=== PATIENT | male | born 1970 | race Caucasian/White ===

== ENCOUNTER 2016-11-13 10:09 | Emergency (ER) | payer OTHER ==
[2016-11-13 10:15] VITALS: RESP 18
[2016-11-13] MEDS ORDERED: SODIUM CHLORIDE 0.9% 1,000 ML IV STA (10:50)
[2016-11-13] MEDS ORDERED: HYDROmorphone 1 MG/ML 1 ML SYRINGE IVP STA (10:51)
--- NOTE | 2016-11-13 11:07 | ED ---
General Adult HPI - General Chief complaint: Chest Pain Stated complaint: left side pain Time Seen by Provider: 11/13/16 10:43 Source: patient, RN notes reviewed, old records reviewed Mode of arrival: ambulatory Limitations: no limitations - History of Present Illness Initial comments: This is a 46-year-old male presents emergency Department chief complaint of 4 days of left sided rib pain. Patient reports that it seems to be underneath his ribs and is worse with deep inspiration. Denies a specific coughing. Patient states that he has had multiple orthopedic surgeries, denies any specific abdominal surgeries. Patient states that he has had worsening pain over the past day and morning and now feels very nauseated. Denies any abnormal bowel movements or blood in his stools. Patient states he's had normal urination. Denies any history of kidney stones. Patient reports that the pain radiates from his left flank area towards his left upper abdomen. Patient reports he takes multiple pain medications due to chronic back pain, has history of hypertension. - Related Data Home Medications Medication Instructions Recorded Confirmed Cyclobenzaprine [Flexeril] 10 mg PO TID PRN 01/25/16 11/13/16 Hydrochlorothiazide [Hydrodiuril] 25 mg PO DAILY 01/25/16 11/13/16 Morphine Sulfate [Ms Contin] 30 mg PO Q8HR 01/25/16 11/13/16 Quinapril HCl [Accupril] 40 mg PO DAILY 01/25/16 11/13/16 oxyCODONE HCL [OxyCONTIN] 10 mg PO Q8H PRN 01/25/16 11/13/16 Multivitamins, Thera [Multivitamin 1 tab PO DAILY 11/13/16 11/13/16 (formulary)] Polyethylene Glycol 3350 [Miralax] 17 gm PO DAILY PRN 11/13/16 11/13/16 Previous Rx's Medication Instructions Recorded Diazepam [Valium] 5 mg PO BID #8 tab 11/13/16 Ibuprofen [Motrin] 800 mg PO TID #12 tab 11/13/16 Allergies Allergy/AdvReac Type Severity Reaction Status Date / Time meperidine [From Demerol] Allergy Rash/Hives Verified 11/13/16 10:40 sulfamethoxazole Allergy Swelling Verified 11/13/16 10:40 [From Bactrim] trimethoprim [From Bactrim] Allergy Swelling Verified 11/13/16 10:40 atenolol AdvReac severe Verified 11/13/16 10:40 headaches metoprolol AdvReac Lethargic,stomach Verified 11/13/16 10:40 pain topiramate AdvReac severe Verified 11/13/16 10:40 headaches,stomach pain Review of Systems ROS Statement: Those systems with pertinent positive or pertinent negative responses have been documented in the HPI. ROS Other: All systems not noted in ROS Statement are negative. Past Medical History Past Medical History: Hypertension, Osteoarthritis (OA) History of Any Multi-Drug Resistant Organisms: None Reported Past Surgical History: Back Surgery, Joint Replacement, Orthopedic Surgery Additional Past Surgical History / Comment(s): Multiple orthopedic surgeries due to work injury. Bilat eye surgery. Past Anesthesia/Blood Transfusion Reactions: Postoperative Nausea & Vomiting ( PONV) Past Psychological History: No Psychological Hx Reported Smoking Status: Former smoker Past Alcohol Use History: Rare Past Drug Use History: None Reported - Past Family History Mother Family Medical History: Cancer Additional Family Medical History / Comment(s): Lung General Exam - General Exam Comments Initial Comments: 46-year-old male. Patient does appear to be in some discomfort. Limitations: no limitations General appearance: alert, in no apparent distress Head exam: Present: atraumatic, normocephalic, normal inspection Eye exam: Present: normal appearance, PERRL, EOMI. Absent: scleral icterus, conjunctival injection, periorbital swelling ENT exam: Present: normal exam, mucous membranes moist Neck exam: Present: normal inspection. Absent: tenderness, meningismus, lymphadenopathy Respiratory exam: Present: normal lung sounds bilaterally. Absent: respiratory distress, wheezes, rales, rhonchi, stridor Cardiovascular Exam: Present: regular rate, normal rhythm GI/Abdominal exam: Present: soft, tenderness (Left upper quadrant tenderness. Left CVA tenderness.), normal bowel sounds. Absent: distended, guarding, rebound, rigid Extremities exam: Present: normal inspection, full ROM, normal capillary refill. Absent: tenderness, pedal edema, joint swelling, calf tenderness Back exam: Present: normal inspection Neurological exam: Present: alert, oriented X3, CN II-XII intact Psychiatric exam: Present: normal affect, normal mood Skin exam: Present: warm, dry, intact, normal color. Absent: rash Course Vital Signs 08/11/13/16 11/13/16 10:10 11:18 13:02 Temperature 96.7 F L Pulse Rate 99 70 84 Respiratory 18 18 18 Rate Blood Pressure 158/84 152/86 140/84 O2 Sat by Pulse 99 96 98 Oximetry 11/13/16 13:50 Temperature 98.4 F Pulse Rate 81 Respiratory 18 Rate Blood Pressure 130/78 O2 Sat by Pulse 98 Oximetry Medical Decision Making - Lab Data Result diagrams: 11/13/16 11:05 11/13/16 11:05 Lab Results 11/13/16 11/13/16 11/13/16 Range/Units 11:05 11:05 11:05 WBC 8.7 (3.8-10.6) k/uL RBC 5.16 (4.30-5.90) m/uL Hgb 17.0 (13.0-17.5) gm/dL Hct 47.6 (39.0-53.0) % MCV 92.3 (80.0-100.0) fL MCH 32.9 (25.0-35.0) pg MCHC 35.7 (31.0-37.0) g/dL RDW 13.4 (11.5-15.5) % Plt Count 216 (150-450) k/uL Neutrophils % 61 % Lymphocytes % 32 % Monocytes % 4 % Eosinophils % 1 % Basophils % 1 % Neutrophils # 5.3 (1.3-7.7) k/uL Lymphocytes # 2.8 (1.0-4.8) k/uL Monocytes # 0.3 (0-1.0) k/uL Eosinophils # 0.1 (0-0.7) k/uL Basophils # 0.1 (0-0.2) k/uL PT (9.0-12.0) sec INR (<1.2) APTT (22.0-30.0) sec Sodium 138 (137-145) mmol/L Potassium 4.4 (3.5-5.1) mmol/L Chloride 103 (98-107) mmol/L Carbon Dioxide 26 (22-30) mmol/L Anion Gap 9 mmol/L BUN 26 H (9-20) mg/dL Creatinine 1.00 (0.66-1.25) mg/dL Est GFR (MDRD) Af Amer >60 (>60 ml/min/1.73 sqM) Est GFR (MDRD) Non-Af >60 (>60 ml/min/1.73 sqM) Glucose 126 H (74-99) mg/dL Calcium 9.5 (8.4-10.2) mg/dL Magnesium 2.0 (1.6-2.3) mg/dL Total Bilirubin 1.0 (0.2-1.3) mg/dL AST 35 (17-59) U/L ALT 59 (21-72) U/L Alkaline Phosphatase 88 (38-126) U/L Total Creatine Kinase 223 H (55-170) U/L CK-MB (CK-2) 1.8 (0.0-2.4) ng/mL CK-MB (CK-2) Rel Index 0.8 Troponin I <0.012 (0.000-0.034) ng/mL Total Protein 7.0 (6.3-8.2) g/dL Albumin 4.4 (3.5-5.0) g/dL Amylase 43 (30-110) U/L Lipase 66 (23-300) U/L Urine Color Urine Appearance (Clear) Urine pH (5.0-8.0) Ur Specific Alvin (1.001-1.035) Urine Protein (Negative) Urine Glucose (UA) (Negative) Urine Ketones (Negative) Urine Blood (Negative) Urine Nitrite (Negative) Urine Bilirubin (Negative) Urine Urobilinogen (<2.0) mg/dL Ur Leukocyte Esterase (Negative) Amorphous Sediment (None) /hpf Urine Mucus (None) /hpf 11/13/16 11/13/16 Range/Units 11:05 11:20 WBC (3.8-10.6) k/uL RBC (4.30-5.90) m/uL Hgb (13.0-17.5) gm/dL Hct (39.0-53.0) % MCV (80.0-100.0) fL MCH (25.0-35.0) pg MCHC (31.0-37.0) g/dL RDW (11.5-15.5) % Plt Count (150-450) k/uL Neutrophils % % Lymphocytes % % Monocytes % % Eosinophils % % Basophils % % Neutrophils # (1.3-7.7) k/uL Lymphocytes # (1.0-4.8) k/uL Monocytes # (0-1.0) k/uL Eosinophils # (0-0.7) k/uL Basophils # (0-0.2) k/uL PT 11.4 (9.0-12.0) sec INR 1.1 (<1.2) APTT 25.5 (22.0-30.0) sec Sodium (137-145) mmol/L Potassium (3.5-5.1) mmol/L Chloride (98-107) mmol/L Carbon Dioxide (22-30) mmol/L Anion Gap mmol/L BUN (9-20) mg/dL Creatinine (0.66-1.25) mg/dL Est GFR (MDRD) Af Amer (>60 ml/min/1.73 sqM) Est GFR (MDRD) Non-Af (>60 ml/min/1.73 sqM) Glucose (74-99) mg/dL Calcium (8.4-10.2) mg/dL Magnesium (1.6-2.3) mg/dL Total Bilirubin (0.2-1.3) mg/dL AST (17-59) U/L ALT (21-72) U/L Alkaline Phosphatase (38-126) U/L Total Creatine Kinase (55-170) U/L CK-MB (CK-2) (0.0-2.4) ng/mL CK-MB (CK-2) Rel Index Troponin I (0.000-0.034) ng/mL Total Protein (6.3-8.2) g/dL Albumin (3.5-5.0) g/dL Amylase (30-110) U/L Lipase (23-300) U/L Urine Color Yellow Urine Appearance Cloudy (Clear) Urine pH 8.0 (5.0-8.0) Ur Specific Alvin 1.018 (1.001-1.035) Urine Protein Trace H (Negative) Urine Glucose (UA) Negative (Negative) Urine Ketones Negative (Negative) Urine Blood Negative (Negative) Urine Nitrite Negative (Negative) Urine Bilirubin Negative (Negative) Urine Urobilinogen <2.0 (<2.0) mg/dL Ur Leukocyte Esterase Negative (Negative) Amorphous Sediment Few H (None) /hpf Urine Mucus Rare H (None) /hpf 11/13/16 15:27 EKG show normal sinus rhythm. Ventricular rate previous per minute. [place] interval 166 ms. QRS duration 84 ms. QT QTc 334/404 ms. Reduce performed at 1108. - Radiology Data Radiology results: report reviewed Disposition Clinical Impression: Abdominal left upper quadrant tenderness, Left flank tenderness Disposition: HOME SELF-CARE Condition: Good Additional Instructions: Patient is apply heating pads and ice packs over the area that is tender. Take the medications as prescribed. Return to emergency department if any alarming signs or symptoms occur. Prescriptions: Diazepam [Valium] 5 mg PO BID #8 tab Ibuprofen [Motrin] 800 mg PO TID #12 tab Referrals: Twila Sanders MD [Primary Care Provider] - 1-2 days Time of Disposition: 13:36
[2016-11-13 11:14] LABS: Basophils # (A) 0.1 k/uL (0-0.2); Basophils % (A) 1 %; CH 32.9; CHCM 35.8; Eosinophils # (A) 0.1 k/uL (0-0.7); Eosinophils % (A) 1 %; HCT 47.6 % (39.0-53.0); HDW 2.75; Luc # (Auto) 0.17; Luc % (Auto) 2; Lymphocytes # (A) 2.8 k/uL (1.0-4.8); Lymphocytes % (A) 32 %; MCH 32.9 pg (25.0-35.0); MCHC 35.7 g/dL (31.0-37.0); MCV 92.3 fL (80.0-100.0); Mean Platelet Volume 7.2; Monocytes # (A) 0.3 k/uL (0-1.0); Monocytes % (A) 4 %; Neutrophils # (A) 5.3 k/uL (1.3-7.7); Neutrophils % (A) 61 %; RBC 5.16 m/uL (4.30-5.90); RDW 13.4 % (11.5-15.5); WBC 8.7 k/uL (3.8-10.6); WBC (Perox) 8.63
[2016-11-13 11:22] LABS: INR 1.1 (<1.2); Partial Thromboplastin Time 25.5 sec (22.0-30.0); Prothrombin Time 11.4 sec (9.0-12.0)
[2016-11-13 11:26] LABS: ALT 59 U/L (21-72); AST 35 U/L (17-59); Alkaline Phosphatase 88 U/L (38-126); Amylase 43 U/L (30-110); Anion Gap 9 mmol/L; Blood Urea Nitrogen 26 mg/dL (9-20); Calcium 9.5 mg/dL (8.4-10.2); Carbon Dioxide 26 mmol/L (22-30); Chloride 103 mmol/L (98-107); Glucose 126 mg/dL (74-99); Non-African American GFR(MDRD) >60 (>60 ml/min/1.73 sqM); Potassium 4.4 mmol/L (3.5-5.1); Sodium 138 mmol/L (137-145)
[2016-11-13 11:29] LABS: Amorphous Sediment,Urine Few /hpf; Appearance,Urine Cloudy (Clear); Bilirubin,Urine Negative (Negative); Glucose,Urine (UA) Negative (Negative); Ketones,Urine Negative (Negative); Leukocyte Esterase,Urine Negative (Negative); Mucus,Urine Rare /hpf; Nitrite,Urine Negative (Negative); Particle Count 16273; Protein,Urine Trace (Negative); Specific Gravity,Urine 1.018 (1.001-1.035); UA Billing (MACRO vs. MICRO) MICRO; Urobilinogen,Urine <2.0 mg/dL (<2.0)
--- NOTE | 2016-11-13 11:44 | XR ---
EXAMINATION TYPE: XR chest 2V DATE OF EXAM: 11/13/2016 COMPARISON: NONE HISTORY: Chest pain TECHNIQUE: Frontal and lateral views of the chest are obtained. FINDINGS: There is no focal air space opacity, pleural effusion, or pneumothorax seen. The cardiac silhouette size is within normal limits. The osseous structures are intact. IMPRESSION: No acute cardiopulmonary process.
[2016-11-13 11:52] LABS: Creatine Kinase 223 U/L (55-170)
[2016-11-13 12:05] LABS: Creatine Kinase MB 1.8 ng/mL (0.0-2.4); Troponin I <0.012 ng/mL (0.000-0.034)
[2016-11-13] MEDS ORDERED: RX INFO: IV CONTRAST WAS GIVEN 1 EACH MISC MISCELLANE PRN (12:30)
[2016-11-13] MEDS ORDERED: DIAZEPAM 5 MG/ML 2 ML SYRINGE IVP STA (12:31)
--- NOTE | 2016-11-13 13:22 | CT ---
EXAMINATION TYPE: CT abdomen pelvis w con DATE OF EXAM: 11/13/2016 REFERENCE: NONE HISTORY: left pain HISTORY: left sided abdominal pain REFERENCE: NONE CT DLP: 1838 mGy Automated exposure control for dose reduction was used. TECHNIQUE: Helical acquisition through the abdomen and pelvis was obtained following the oral ingesti on of without Oral Contrast and following intravenous administration of 100 mL of Omnipaque 300. The data was reformatted in axial, coronal and sagittal projections. FINDINGS: There is some dependent atelectasis in the dependent portions of the lungs. There is no pl eural or pericardial fluid. The heart is not enlarged. Within the abdomen, the liver, spleen and gallbladder appear normal. Both adrenal glands appear normal. Both kidneys demonstrate function and appear morphologically normal. The pancreas is unremarkable. There is no significant retroperitoneal, iliac or inguinal adenopathy. The bladder is unremarkable. There is no significant diverticular change and there is no radiographic evidence of diverticulitis. The appendix is not visualized. Small bowel loops appear normal. There is no free fluid and no free air identified. There is been a previous interpedicular fusion at L5-S1 with spacer placement. There has been a janis ectomy at L5. IMPRESSION: 1. NO ACUTE INFLAMMATORY ABNORMALITY TO EXPLAIN PATIENT'S CLINICAL SYNDROME. 2. POSTSURGICAL CHANGE.
[2016-11-13 13:50] VITALS: BP 130/78; PULSE 81; TEMP 98.4
== END 2016-11-13 13:50 | disposition home or self-care (01) ==
LOC: EC 10:09
DX: R10.812 Left upper quadrant abdominal tenderness (principal); R07.81 Pleurodynia; I10 Essential (primary) hypertension; Z87.891 Personal history of nicotine dependence; Z88.2 Allergy status to sulfonamides; Z88.8 Allergy status to other drugs, medicaments and biological substances; Z88.5 Allergy status to narcotic agent; Z79.891 Long term (current) use of opiate analgesic; Z79.899 Other long term (current) drug therapy
CPT/HCPCS: 99285; 96374; 96375; 96361 ×3; 36415; 93005; 80053; 82150; 82550; 82553; 83690; 83735; 84484; 85025; 85610; 85730; 81001; 71020; 74177; J3360; J1170; Q9967

== ENCOUNTER → 2017-11-26 | Outpatient (CLI) | payer OTHER ==
--- NOTE | 2017-11-26 11:17 | US ---
EXAMINATION TYPE: US thyroid st tissue head/neck DATE OF EXAM: 11/26/2017 COMPARISON: NONE CLINICAL HISTORY: R22.1 Localized swelling, mass and lump, neck. Patient has several palpable lumps b ilateral neck Multiple probable lymph nodes visualized bilaterally. Largest on the right measuring 2.9 x 0.9 x 2.5 cm. Largest in the left measuring 2.3 x 1.1 x 1.7 cm Prominent lymph nodes are seen bilaterally with eccentric cortical thickening, there appears to be re tention of normal fatty hilum. IMPRESSION: Fairly prominent borderline enlarged bilateral neck lymph nodes correlate to the palpabl e abnormality. Findings could reflect normal variant. Infectious process inflammatory process, and ne oplasm such as lymphoma however is in differential. Consider contrast-enhanced neck CT to further nani luate and characterize based on clinical correlation.
== END ==
LOC: RADUSWWP 09:32
PROVIDERS: ATTEND Family Medicine
DX: R59.0 Localized enlarged lymph nodes (principal)
CPT/HCPCS: 76536

== ENCOUNTER → 2017-12-18 | Outpatient (CLI) | payer OTHER ==
--- NOTE | 2017-12-18 09:03 | CT ---
EXAMINATION TYPE: CT sinus wo con DATE OF EXAM: 12/18/2017 COMPARISON: NONE HISTORY: sinusitis CT DLP: 667 mGycm. Automated Exposure Control for Dose Reduction was Utilized. TECHNIQUE: CT scan of the sinuses is performed without contrast, axial images are obtained, coronal r eformatted images are also reviewed. FINDINGS: There is patency of the ostia medial complexes. No significant mucosal hypertrophy is seen surrounding the nasal turbinates. There is slight rightward nasal septal deviation and a small 2 mm r ightward nasal septal spur. There is polypoid mucosal thickening within the posterior dependent right maxillary sinus with a mucosal retention cyst versus polyp measuring 2.2 x 1.2 cm. Additionally thin peripheral rim of mucosal thickening is seen within the right maxillary sinus. Scant mucosal thicken ing is appreciated within the ethmoid sinuses. Left maxillary sinus, sphenoid sinuses, frontal sinuse s, and visualized mastoid air cells are well aerated. No middle ear cavity fluid. External auditory c anals appear patent. Osseous structures appear intact. Globes are symmetric and orbits are unremarkable. Punctate tonsilli ths are incidentally seen. IMPRESSION: 1. Polypoid lesion within the right maxillary sinus representing either a mucosal retention cyst or p olyp. Scant mucosal thickening within the right maxillary sinus and ethmoid sinuses. Remainder of the paranasal sinuses are well aerated. 2. Minimal nonocclusive rightward nasal septal deviation. 3. Patency of the ostiomeatal complexes.
--- NOTE | 2017-12-18 09:15 | CT ---
EXAMINATION TYPE: CT soft tissue neck w con DATE OF EXAM: 12/18/2017 HISTORY: neck mass COMPARISON: Ultrasound dated 11/26/2017 CT DLP: 643.50 mGycm. Automated Exposure Control for Dose Reduction was Utilized. TECHNIQUE: CT scan of the neck is performed with IV Contrast, patient injected with 100 mL of Isovue 300, axial images are obtained, coronal and sagittal reformatted images are reviewed. FINDINGS: Airway: Torus tubarius and fossa of Rosenmuller are unremarkable. Parapharyngeal tonsils are slightly enlarged and mildly narrow the oropharynx. There is asymmetry of positioning leading to slight asymm etry of the vallecula. Piriform sinuses are well aerated. Airway is overall maintained. Visualized po rtions of the main tracheobronchial tree are also patent. Parotid/submandibular glands: No evidence of mandibular glands are symmetric. Carotid/Vascular Structures: Common and visualized portions of the internal carotid arteries appear p atent. Right vertebral artery is dominant. Osseous Structures: Moderate multilevel degenerative changes of the cervical spine are seen with vacu um disc phenomenon near the left neural foramen and epidural space at C4-C5. No acute fracture or dis location is appreciated. No suspicious osseous lesion. Right maxillary polypoid lesion is discussed i n the CT same date. Other: There are multiple enlarged lymph nodes at multiple lily stations within the neck, supraclavi cular region, retropectoral region, axillary regions, and prominent lymph nodes within the visualized superior mediastinum. The largest of these lymph nodes is seen on series 4 image 58 measuring 1.7 cm in short axis on the left posterior to the sternocleidomastoid. Some the other largest lymph nodes a re measured at 1.2 cm on image 73, 1.5 cm on the right on image 55, and partially visualized within t he left axilla on image 19. Punctate right upper lobe pulmonary nodule is seen on image 20 peripherally. Additional pulmonary nod ule within the left upper lobe measures 4 mm. Left-sided pulmonary nodule within the left upper lobe laterally as seen on image 1 measuring 3 mm. IMPRESSION: 1. Multiple enlarged lymph nodes of the neck and upper chest. Given the diffuse involvement considera tion is for lymphoma. Correlation with CBC with differential is recommended. If cytology is needed re peat ultrasound could be performed of the neck to assess for access of ultrasound guided percutaneous biopsy. No appreciable neck mass. 2. Multiple subcentimeter pulmonary nodules. Therefore full evaluation of the chest with CT thorax is recommended.
== END ==
LOC: RADCTMAIN 07:51
PROVIDERS: ATTEND Otolaryngology
DX: J34.2 Deviated nasal septum (principal); R59.0 Localized enlarged lymph nodes
CPT/HCPCS: 70491; 70486; Q9967

== ENCOUNTER 2017-12-25 12:26 | Day surgery (SDC) | payer OTHER ==
[2017-12-25 12:56] VITALS: RESP 16; TEMP 98.2
[2017-12-25] MEDS ORDERED: ALPRAZolam 0.5 MG TAB PO STA (12:56)
[2017-12-25 13:51] VITALS: BP 142/72; PULSE 73
--- NOTE | 2017-12-25 14:08 | US ---
ULTRASOUND GUIDED CORE BIOPSY BILATERAL NECK LYMPH NODES: CLINICAL HISTORY: Bilateral neck lymph nodes FINDINGS: The procedure was explained to the patient. The risks, complications, benefits and alternatives were discussed and any questions were answered. Informed consent was obtained. Patient was placed supin e on the ultrasound table and prepped and draped in the usual sterile fashion. Utilizing a 18 gauge needle, 2 core biopsy passes were made into the each of the requested lymph nodes. Patient was stable throughout the procedure. Pathology is pending. All elements of maximal barrier technique were utilized. IMPRESSION: 1. Successful ultrasound guided core biopsy bilateral neck lymphadenopathy.
== END 2017-12-25 14:00 | disposition home or self-care (01) ==
LOC: RADPROMAIN 12:26
PROVIDERS: ATTEND Otolaryngology
DX: C91.Z0 Other lymphoid leukemia not having achieved remission (principal)
CPT/HCPCS: 38505; 76942; 88305; 88341; 88342

== ENCOUNTER 2018-01-28 06:14 | Day surgery (SDC) | payer OTHER ==
[2018-01-22 16:08] VITALS: BMI 38.4
[~2018-01-28 06:14] MED LIST: DEXAMETHASONE SOD PHOSPHATE 10 MG/ML 1 ML VIAL IV ONE; DEXAMETHASONE SOD PHOSPHATE 4 MG/ML 1 ML VIAL IV ONE; FAMOTIDINE 20 MG/2 ML VIAL IV ONE; HYDROmorphone 1 MG/ML 1 ML SYRINGE IVP PRN; LACTATED RINGERS 1,000 ML IV SCH; LIDOCAINE 1% 20 ML VIAL (10MG/ML) FOR IV START INTRADERMA PRN; MELOXICAM 7.5 MG TAB PO ONE; MIDAZOLAM 2 MG/2 ML VIAL IV PRN; ONDANSETRON 4 MG/2 ML VIAL IVP ONE; OXYMETAZOLINE 0.05% NASL SPRAY 1 SPRAY BOTTLE NASAL ONE; Pre Op ABX Message 1 EACH MISC MISCELLANE ONE; fentaNYL (PF) 50 MCG/ML 2 ML AMP IV PRN
[2018-01-28] MEDS ORDERED: DEXAMETHASONE SOD PHOS (MDV) 100 MG/10 ML VIAL ONE (07:26)
[2018-01-28] MEDS ORDERED: MIDAZOLAM 2 MG/2 ML VIAL ONE (07:26)
[2018-01-28] MEDS ORDERED: SUCCINYLCHOLINE CHLORIDE 100 MG/5 ML SYR IV ONE (07:26)
[2018-01-28] MEDS ORDERED: HYDROmorphone (PF) 1 MG/ML ONE (07:26)
[2018-01-28] MEDS ORDERED: PROPOFOL 10 MG/ML 20 ML VIAL IV ONE (07:26)
[2018-01-28] MEDS ORDERED: fentaNYL (PF) 50 MCG/ML 2 ML AMP ONE (07:26)
[2018-01-28] MEDS ORDERED: LABETALOL 5 MG/ML VIAL MDV ONE (07:26)
[2018-01-28] MEDS ORDERED: LIDOCAINE 1% INJ 10MG/ML (20 ML MDV) ONE (07:26)
[2018-01-28] MEDS ORDERED: LIDOCAINE 1%-EPI 1:100,000 20 ML VIAL SQ ONE ×2 (08:00)
[2018-01-28] MEDS ORDERED: FLUORESCEIN STRIPS 1 MG STRIP MISCELLANE ONE (08:00)
[2018-01-28] MEDS ORDERED: BUPIVACAIN-EPI 0.5%-1:200,000 30 ML VIAL SQ ONE ×2 (08:00)
[2018-01-28] MEDS ORDERED: BACITRACIN 500 UNIT/GM OINT 28.4 GM TUBE TOPICAL ONE (08:00)
[2018-01-28] MEDS ORDERED: EPINEPHrine 1 MG/ML (MDV) 30 ML VIAL TOPICAL ONE (08:00)
[2018-01-28] MEDS ORDERED: EPINEPHrine 1 MG/ML (MDV) 30 ML VIAL IRRIGATION ONE (08:00)
[2018-01-28 09:16] VITALS: TEMP 97.9
[2018-01-28] MEDS: ENALAPRILAT 1.25 MG/ML 1 ML VIAL IVP ONE ×2 (09:20→09:33)
--- NOTE | 2018-01-28 09:28 | P.OP ---
Date of Procedure: 01/28/18 Preoperative Diagnosis: Deviated nasal septum Hypertrophy of nasal turbinates bilaterally with obstruction Chronic maxillary and ethmoid sinusitis with right maxillary sinus polyp Postoperative Diagnosis: same Procedure(s) Performed: Septoplasty Bilateral submucosal resection of the inferior turbinates with outfracture and compression Bilateral functional endoscopic sinus surgery with right maxillary sinus polypectomy Anesthesia: PAN Surgeon: Ralf Maldonado Estimated Blood Loss (ml): 20 Pathology: other (Sinonasal) Condition: stable Disposition: PACU Indications for Procedure: This patient presented to the office with long-standing problems of chronic sinus congestion anosmia and infectious drainage. This is been a problem for many years and has been treated with multiple antibiotics cortisone nasal sprays and [id number] medications. He did on multiple antibiotics with no long-term improvement and is requesting surgery. He has constant yellow drainage in the sense of smell is poor. His drainage is always yellow and this is in spite of antibiotic therapy. CAT scan evaluation shows chronic sinusitis with a large polyp of the right maxillary sinus. Patient also was found have a deviated nasal septum to the left there was obstructive with intranasal crusting and scabbing. Operative Findings: Patient had a large polyp-type mass of the right maxillary sinus with evidence of diseased sinuses and the maxillary and total ethmoid sinuses. Septum is severely deviated to the left and the inferior turbinates were large and obstructive bilaterally. Description of Procedure: This patient was taken to the operative room and placed in the supine position. A general inhalation anesthetic was administered to the patient by the department of anesthesia with a functioning IV line in place. The patient was monitored throughout the entire case by the department of anesthesia. The eyes were taped shut for protection. The patient was placed in a slight reverse Trendelenburg position. The patient had previously utilize Afrin nasal spray preoperatively. The nose was evaluated and the septum lateral nasal wall and inferior turbinates were injected with lidocaine 1% with epinephrine 1 100,000 bilaterally. Approximately 10 minutes were allowed wait for full vasoconstrictive effects to take place. At this point a caudal incision was made over the caudal portion of the left septum down to the mucoperichondrium. A mucoperichondrial flap was elevated on the left side and dissection was carried with use of tunnels posteriorly. We then made a crossover incision through the cartilage to the contralateral side and for the mucoperichondrial flap development was performed to the extent of visualization on the contralateral side. After the cartilage was freed with use of several crosshatching incisions and removal of some redundant strips of septal cartilage, the septum was straightened and placed back in the midline. The septum was sutured fixated to the ovarian groove. Excellent straightening occurred and the septum was visibly straight. Incision was closed with a 40 rapid Vicryl. We utilized a running nonlocking fashion for closure of the incision. A quilting stitch was used to reapproximate the septal flaps with use of a 40 rapid Vicryl. We then entered the nose with a 0 and 30 [place] tolu endoscope. Previous to this we did inject the lateral nasal wall and middle turbinate and uncinate process with lidocaine 1% with epinephrine 1 100,000. Approximately 10 minutes were allowed wait for full vasoconstrictive effects to take place. With use of a microdebrider and a pediatric backbiter, we took down the uncinate process bilaterally. We then opened the maxillary sinuses bilaterally. We utilized a microdebrider for this and entered the maxillary sinuses and removed diseased tissue. I removed a large polyp of the right maxillary sinus. Maxillary sinuses were opened bilaterally and we remove diseased tissue bilaterally.. After the maxillary sinuses were opened and the diseased tissue was removed we entered the ethmoid bulla and with use of a microdebrider and up-biting Pretty, we followed the fovea frontalis through the basal lamella and into the posterior ethmoid air cells and did a total ethmoidectomy. We removed the anterior ethmoid air cells with use of a microdebrider and up-biting boss. After all the anterior ethmoid air cells were removed we did the same in the posterior ethmoid. A total ethmoidectomy was completed in that fashion with removal of all the anterior and posterior ethmoid air cells and diseased tissue. Once the ethmoids cells were all taken down we then entered the sphenoid sinus medially and inferiorly underneath the inferior attachment of the superior turbinate. . Ethmoid sinuses were opened totally. Xerogel was inserted and minimal bleeding was encountered. Powdered Surgicel was utilized We reinspected the skull base there is no signs of any orbital penetration or signs of any intracranial penetration. The sugical site was reinspected after the xerogel was placed and no bleeding was seen. Intranasal splints were inserted and fixated at the end of the case. We utilized Edwards nasal splints. There will be removed and the patient returns to the office. A small piece of nasal pore was placed between the inferior turbinate and the septal splint. Attention was then paid to the inferior turbinates. The bilateral inferior turbinates were hypertrophic and obstructive. We entered the anterior portion of the inferior turbinates with use of a microdebrider. We remove bone and submucosal elements with use of a microdebrider bilaterally. The inferior turbinates underwent a submucosal resection with removal of submucosal tissue and bone. We obtained a much better and normal in size for breathing. The inferior turbinates were then outfractured and compressed with a Rewind Me nasal elevator. Excellent airway was obtained and was symmetric bilaterally. No bleeding was encountered.
[2018-01-28] MEDS: MORPHINE SULFATE 10 MG/ML SYRINGE IVP ONE ×4 (09:30→09:40)
[2018-01-28 09:54] VITALS: RESP 18
[2018-01-28] MEDS ORDERED: ACETAMINOPHEN TAB 500 MG TAB PO ONE (10:10)
[2018-01-28] MEDS ORDERED: LABETALOL SYRINGE 5 MG/ML IVP ONE (10:30)
[2018-01-28 11:21] VITALS: BP 143/85; PULSE 85
== END 2018-01-28 11:22 | disposition home or self-care (01) ==
LOC: OR 06:14
PROVIDERS: ATTEND Otolaryngology
DX: J32.8 Other chronic sinusitis (principal); J34.2 Deviated nasal septum; J34.3 Hypertrophy of nasal turbinates; J33.8 Other polyp of sinus; I10 Essential (primary) hypertension; C91.10 Chronic lymphocytic leukemia of B-cell type not having achieved remission; K21.9 Gastro-esophageal reflux disease without esophagitis; H91.90 Unspecified hearing loss, unspecified ear; Z87.891 Personal history of nicotine dependence; J37.0 Chronic laryngitis; K76.9 Liver disease, unspecified; Z79.891 Long term (current) use of opiate analgesic; Z79.899 Other long term (current) drug therapy; Z88.2 Allergy status to sulfonamides; Z88.5 Allergy status to narcotic agent; Z88.8 Allergy status to other drugs, medicaments and biological substances
CPT/HCPCS: 88305; 88300; 30520; 31267; 31255; 30140; J0171; J2250; J1100 ×2; J2270; J2405; J2001; J3010; J1170; J0330; J2704

== ENCOUNTER → 2018-09-18 | Outpatient (CLI) | payer OTHER ==
[2018-09-18 08:40] LABS: HCT 44.2 % (39.0-53.0); HGB 14.6 gm/dL (13.0-17.5); MCH 31.7 pg (25.0-35.0); MCV 95.9 fL (80.0-100.0); Mean Platelet Volume 7.8; Platelet Count 180 k/uL (150-450); RBC 4.61 m/uL (4.30-5.90); RDW 13.8 % (11.5-15.5); WBC 22.2 k/uL (3.8-10.6)
== END | disposition home or self-care (01) ==
LOC: LABWHC1 08:10
PROVIDERS: ATTEND Internal Medicine Endocrinology, Diabetes & Metabolism
DX: E29.1 Testicular hypofunction (principal)
CPT/HCPCS: 36415; 84403; 85027

== ENCOUNTER 2018-10-27 09:23 | Day surgery (SDC) | payer OTHER ==
[2018-10-21 13:27] VITALS: BMI 38.0
[~2018-10-27 09:23] MED LIST changes: -DEXAMETHASONE SOD PHOSPHATE 10 MG/ML 1 ML VIAL IV ONE; -DEXAMETHASONE SOD PHOSPHATE 4 MG/ML 1 ML VIAL IV ONE; -FAMOTIDINE 20 MG/2 ML VIAL IV ONE; -HYDROmorphone 1 MG/ML 1 ML SYRINGE IVP PRN; -LIDOCAINE 1% 20 ML VIAL (10MG/ML) FOR IV START INTRADERMA PRN; -MELOXICAM 7.5 MG TAB PO ONE; -MIDAZOLAM 2 MG/2 ML VIAL IV PRN; -ONDANSETRON 4 MG/2 ML VIAL IVP ONE; -OXYMETAZOLINE 0.05% NASL SPRAY 1 SPRAY BOTTLE NASAL ONE; -Pre Op ABX Message 1 EACH MISC MISCELLANE ONE; -fentaNYL (PF) 50 MCG/ML 2 ML AMP IV PRN
[2018-10-27 10:09] VITALS: TEMP 97.8
[2018-10-27] MEDS ORDERED: LIDOCAINE 1% 20 ML VIAL (10MG/ML) FOR IV START INTRADERMA ONE (10:21)
[2018-10-27] MEDS ORDERED: PROPOFOL 10 MG/ML 20 ML VIAL IV ONE (10:36)
--- NOTE | 2018-10-27 10:57 | P.PCN ---
Date of Procedure: 10/27/18 Procedure(s) Performed: BRIEF HISTORY: Patient is a 48-year-old pleasant white male scheduled for an elective colonoscopy as a part of screening for colorectal neoplasia. PROCEDURE PERFORMED: Colonoscopy. PREOPERATIVE DIAGNOSIS: Screening for colon cancer. IV sedation per Anesthesia. PROCEDURE: After informed consent was obtained, the patient, was brought into the endoscopy unit. IV sedation was administered by Anesthesia under continuous monitoring. Digital rectal examination was normal. Initially the Olympus CF-160 flexible video colonoscope was then inserted in the rectum, gradually advanced into the cecum without any difficulty. Careful examination was performed as the scope was gradually being withdrawn. Ileocecal valve and the appendiceal orifice were visualized and appeared normal. Prep was excellent. Mucosa of the cecum, ascending colon, transverse colon, descending colon, sigmoid colon, and rectum appeared normal. Retroflexion was performed in the rectum and no lesions were seen. The patient tolerated the procedure well. IMPRESSION: Normal-appearing colon from rectum to cecum no evidence of colorectal neoplasia . RECOMMENDATIONS: Findings of this examination were discussed with the patient as well as his family. He was advised to have a repeat screening colonoscopy in 10 years.
[2018-10-27 11:02] VITALS: RESP 16
[2018-10-27 11:16] VITALS: BP 131/89; PULSE 75
== END 2018-10-27 11:34 | disposition home or self-care (01) ==
LOC: ORWHC2ENDO 09:23
PROVIDERS: ATTEND Internal Medicine Gastroenterology
DX: Z12.11 Encounter for screening for malignant neoplasm of colon (principal); I10 Essential (primary) hypertension; M19.90 Unspecified osteoarthritis, unspecified site; Z85.6 Personal history of leukemia; Z79.1 Long term (current) use of non-steroidal anti-inflammatories (NSAID); Z79.891 Long term (current) use of opiate analgesic; Z79.899 Other long term (current) drug therapy; Z88.2 Allergy status to sulfonamides; Z88.8 Allergy status to other drugs, medicaments and biological substances; Z88.5 Allergy status to narcotic agent
CPT/HCPCS: J2704; G0121

== ENCOUNTER → 2019-01-22 | Outpatient (CLI) | payer OTHER ==
[2019-01-22 08:55] LABS: HCT 43.7 % (39.0-53.0); HGB 15.1 gm/dL (13.0-17.5); MCH 32.6 pg (25.0-35.0); MCHC 34.6 g/dL (31.0-37.0); MCV 94.2 fL (80.0-100.0); Mean Platelet Volume 7.1; Platelet Count 163 k/uL (150-450); RBC 4.63 m/uL (4.30-5.90); RDW 13.5 % (11.5-15.5); WBC 15.9 k/uL (3.8-10.6)
== END | disposition home or self-care (01) ==
LOC: LABWHC1 08:39
PROVIDERS: ATTEND Internal Medicine Endocrinology, Diabetes & Metabolism
DX: E29.1 Testicular hypofunction (principal)
CPT/HCPCS: 36415; 84153; 84403; 85027

== ENCOUNTER 2019-01-31 07:05 | Emergency (ER) | payer OTHER ==
[2019-01-31 07:17] VITALS: RESP 18
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
--- NOTE | 2019-01-31 08:02 | CT ---
EXAMINATION TYPE: CT brain wo con DATE OF EXAM: 01/31/2019 COMPARISON: None. HISTORY: 48-year-old male right temporal region head injury, pain IHS-NECK, Shoulder-Ear injury TECHNIQUE: Examination was done in axial plane without intravenous contrast. Coronal and sagittal r econstructions performed. CT DLP: 1099.4 mGycm Automated exposure control for dose reduction was used. FINDINGS: There is no evidence of acute intracranial hemorrhage, acute ischemic changes, mass, mass-effect, or extra-axial fluid collection. There is no effacement of cerebral sulci or basal subarachnoid cister ns. There is no hydrocephalus. There is no midline shift. Smith-white matter distinction is preserv ed. Scattered trace mucosal thickening ethmoid air cells. Orbits and globes are intact. Mastoid air cells well pneumatized. No calvarial fracture. IMPRESSION: No acute intracranial abnormality seen.
[2019-01-31] MEDS ORDERED: KETOROLAC 60 MG/2 ML VIAL IM STA (08:06)
[2019-01-31 08:46] VITALS: BP 127/91; PULSE 96; TEMP 97
== END 2019-01-31 08:42 | disposition home or self-care (01) ==
LOC: EC 07:05
DX: S09.90XA Unspecified injury of head, initial encounter (principal); M54.2 Cervicalgia; I10 Essential (primary) hypertension; M19.90 Unspecified osteoarthritis, unspecified site; Z87.891 Personal history of nicotine dependence; Z88.2 Allergy status to sulfonamides; Z88.5 Allergy status to narcotic agent; Z88.8 Allergy status to other drugs, medicaments and biological substances; Z79.890 Hormone replacement therapy; Z79.891 Long term (current) use of opiate analgesic; Z79.899 Other long term (current) drug therapy; Z85.6 Personal history of leukemia; Z96.652 Presence of left artificial knee joint; Z98.890 Other specified postprocedural states; Y04.0XXA Assault by unarmed brawl or fight, initial encounter; Y93.89 Activity, other specified; Y92.230 Patient room in hospital as the place of occurrence of the external cause; Y99.0 Civilian activity done for income or pay
CPT/HCPCS: 70450; 99283; 96372; J1885

== ENCOUNTER → 2019-05-30 | Outpatient (CLI) | payer MEDICAID | END | disposition home or self-care (01) | DX: E29.1 Testicular hypofunction (principal) | CPT/HCPCS: 36415; 84403; 85027 ==

== ENCOUNTER → 2019-08-18 | Outpatient (CLI) | payer MEDICAID ==
[2019-08-18 14:23] LABS: HCT 44.4 % (39.0-53.0); HGB 14.9 gm/dL (13.0-17.5); MCH 32.7 pg (25.0-35.0); MCHC 33.6 g/dL (31.0-37.0); MCV 97.2 fL (80.0-100.0); Mean Platelet Volume 8.4; Platelet Count 162 k/uL (150-450); RBC 4.57 m/uL (4.30-5.90); RDW 13.4 % (11.5-15.5); WBC 31.2 k/uL (3.8-10.6)
[2019-08-18 15:12] LABS: Lymphocytes # (M) 29.02 k/uL (1.0-4.8); Monocytes # (M) 0.31 k/uL (0-1.0); Neutrophils # (M) 2.18 k/uL (1.3-7.7); Neutrophils % (M) 7 %; Nucleated Red Blood Cells 0 /100 WBC (0-0); Total Cells Counted 200
[2019-08-18 15:13] LABS: Anisocytosis (M) Present; Poikilocytosis (M) Present
[2019-08-19 00:04] LABS: African American GFR (CKD) 100.6 (60.0-200.0); Albumin 4.5 g/dL (3.80-4.90); Albumin/Globulin Ratio 2.65 (1.60-3.17); Anion Gap 6.6 mmol/L (4.00-12.00); Calcium 9.5 mg/dL (8.7-10.3); Carbon Dioxide 27.4 mmol/L (21.6-31.8); Globulin 1.7 g/dL (1.6-3.3); Non-African American GFR(CKD) 86.8 (60.0-200.0); Potassium 4.3 mmol/L (3.5-5.5); Total Bilirubin 0.5 mg/dL (0.2-1.2); Total Protein 6.2 g/dL (6.2-8.2)
== END | disposition home or self-care (01) ==
LOC: LABWHC1 12:46
DX: C91.10 Chronic lymphocytic leukemia of B-cell type not having achieved remission (principal)
CPT/HCPCS: 36415; 80053; 83615; 85025

== ENCOUNTER → 2019-10-04 | Outpatient (CLI) | payer MEDICAID ==
[2019-10-04 08:26] LABS: HCT 43.7 % (39.0-53.0); HGB 15.1 gm/dL (13.0-17.5); MCH 33.7 pg (25.0-35.0); MCHC 34.5 g/dL (31.0-37.0); MCV 97.5 fL (80.0-100.0); Mean Platelet Volume 8.1; Platelet Count 151 k/uL (150-450); RBC 4.48 m/uL (4.30-5.90); RDW 13.8 % (11.5-15.5)
[2019-10-04 11:39] LABS: Prostate Specific Antigen 0.6 ng/mL (0.0-3.5)
== END | disposition home or self-care (01) ==
LOC: LABWHC1 07:24
PROVIDERS: ATTEND Internal Medicine Endocrinology, Diabetes & Metabolism
DX: E29.1 Testicular hypofunction (principal)
CPT/HCPCS: 36415; 84153; 84403; 85027

== ENCOUNTER → 2020-01-25 | Outpatient (CLI) | payer MEDICAID ==
[2020-01-25 08:16] LABS: HCT 42.3 % (39.0-53.0); HGB 14.7 gm/dL (13.0-17.5); MCH 33.5 pg (25.0-35.0); MCHC 34.8 g/dL (31.0-37.0); MCV 96.2 fL (80.0-100.0); Mean Platelet Volume 7.5; Platelet Count 152 k/uL (150-450); RDW 13.4 % (11.5-15.5)
[2020-01-25 08:27] LABS: WBC 57.7 k/uL (3.8-10.6)
== END | disposition home or self-care (01) ==
LOC: LABWHC1 07:14
PROVIDERS: ATTEND Internal Medicine Endocrinology, Diabetes & Metabolism
DX: E29.1 Testicular hypofunction (principal)
CPT/HCPCS: 36415; 84403; 85027

== ENCOUNTER → 2020-02-13 | Outpatient (CLI) | payer MEDICAID ==
[2020-02-13 08:51] LABS: HCT 43.2 % (39.0-53.0); HGB 14.3 gm/dL (13.0-17.5); MCV 96.8 fL (80.0-100.0); Mean Platelet Volume 7.5; Platelet Count 166 k/uL (150-450); RBC 4.46 m/uL (4.30-5.90); RDW 14.3 % (11.5-15.5)
[2020-02-13 10:17] LABS: WBC 54.9 k/uL (3.8-10.6)
[2020-02-13 10:30] LABS: Eosinophils # (M) 0.55 k/uL (0-0.7); Lymphocytes # (M) 48.86 k/uL (1.0-4.8); Monocytes # (M) 0.55 k/uL (0-1.0); Neutrophils # (M) 4.94 k/uL (1.3-7.7); Neutrophils % (M) 9 %; Nucleated Red Blood Cells 0 /100 WBC (0-0); Total Cells Counted 200
[2020-02-13 10:31] LABS: Anisocytosis (M) Present; Poikilocytosis (M) Present
[2020-02-13 15:47] LABS: African American GFR (CKD) 80.1 (60.0-200.0); Albumin 4.6 g/dL (3.80-4.90); Albumin/Globulin Ratio 2.71 (1.60-3.17); Anion Gap 5.7 mmol/L (4.00-12.00); BUN/Creat Ratio 17.5 Ratio (12.00-20.00); Calcium 9.3 mg/dL (8.7-10.3); Carbon Dioxide 28.3 mmol/L (21.6-31.8); Globulin 1.7 g/dL (1.6-3.3); Non-African American GFR(CKD) 69.1 (60.0-200.0); Total Bilirubin 0.6 mg/dL (0.2-1.2); Total Protein 6.3 g/dL (6.2-8.2)
== END | disposition home or self-care (01) ==
LOC: LABWHC1 07:39
PROVIDERS: ATTEND Internal Medicine
DX: C91.10 Chronic lymphocytic leukemia of B-cell type not having achieved remission (principal)
CPT/HCPCS: 36415; 80053; 83615; 85025

== ENCOUNTER 2020-03-01 06:57 | Inpatient (IN) | payer MEDICAID ==
[2020-03-01] MEDS ORDERED: ACETAMINOPHEN TAB 500 MG TAB PO STA (07:06)
[2020-03-01] MEDS ORDERED: DEXAMETHASONE SOD PHOSPHATE 10 MG/ML 1 ML VIAL IV STA (07:07)
--- NOTE | 2020-03-01 07:14 | ED ---
SOB HPI - General Chief Complaint: Shortness of Breath Stated Complaint: SOB, Covid + Time Seen by Provider: 03/01/20 06:58 Source: patient, RN notes reviewed Mode of arrival: wheelchair Limitations: no limitations - History of Present Illness Initial Comments: This a 50-year-old male presents emergency Department chief complaint of increasing shortness of breath. Patient states she started symptoms of covid on February 17. Patient states that he's been taking [id number] vitamins and states he has a pulse ox at home. Press and pulse ox has been around 89 and 90 states that hhe got up today and noticed pulse ox has been dropping into the low 80s. Patient does have underlying CLL. Patient states she's had on-and-off fevers he has not had any recent Tylenol today. - Related Data Home Medications Medication Instructions Recorded Confirmed Morphine Sulfate [Ms Contin] 30 mg PO BID 01/25/16 03/01/20 Quinapril HCl [Accupril] 40 mg PO QAM 01/25/16 03/01/20 hydroCHLOROthiazide [Hydrodiuril] 25 mg PO QAM 01/25/16 03/01/20 oxyCODONE HCL [OxyCONTIN] 10 mg PO BID PRN 01/25/16 03/01/20 Testosterone Cypionate 200 mg IM Q16D 12/18/17 03/01/20 [Depo-Testosterone] Ibuprofen [Motrin] 800 mg PO TID PRN 01/22/18 03/01/20 Ascorbic Acid [Vitamin C] 1,000 mg PO DAILY 10/21/18 03/01/20 Cyclobenzaprine [Flexeril] 10 mg PO TID PRN 01/31/19 03/01/20 Active Hexose Correlated [place] 3,000 mg PO DAILY 03/01/20 03/01/20 Alpha Lipoic Acid 600 mg PO DAILY 03/01/20 03/01/20 Arteminisin 200 mg PO DAILY 03/01/20 03/01/20 Beta Carotene 3,000 mcg PO DAILY 03/01/20 03/01/20 Chaga Mushroom 1,000 mg PO DAILY 03/01/20 03/01/20 Colostrum 650 mg PO DAILY 03/01/20 03/01/20 [place] 500 1,000 mg PO DAILY 03/01/20 03/01/20 Egcg 3,900 mg PO DAILY 03/01/20 03/01/20 Inositol Hexaphoshpate Ip6 4,000 mg PO DAILY 03/01/20 03/01/20 Lutein And Zeaxanthin 1 cap PO DAILY 03/01/20 03/01/20 Lycopene 50 mg PO DAILY 03/01/20 03/01/20 Magnesium Cypionate 400 mg PO DAILY 03/01/20 03/01/20 [place]-3 2,500 mg PO DAILY 03/01/20 03/01/20 Reishi Mushroom 900 mg PO DAILY 03/01/20 03/01/20 Selenium 250 mcg PO DAILY 03/01/20 03/01/20 Triamcinolone 0.1% Cream [Kenalog 1 applic TOPICAL BID PRN 03/01/20 03/01/20 0.1% Cream] Vitamin D W/ Coconut Oil 125 mcg PO DAILY 03/01/20 03/01/20 Vitamin E (Dl,Tocopheryl Acet) 400 unit PO DAILY 03/01/20 03/01/20 [Vitamin E] Allergies Allergy/AdvReac Type Severity Reaction Status Date / Time meperidine [From Demerol] Allergy Rash/Hives Verified 03/01/20 08:10 sulfamethoxazole Allergy Rash/Hives Verified 03/01/20 08:10 [From Bactrim] trimethoprim [From Bactrim] Allergy Rash/Hives Verified 03/01/20 08:10 atenolol AdvReac severe Verified 03/01/20 08:10 headaches metoprolol AdvReac Lethargic,stomach Verified 03/01/20 08:10 pain topiramate AdvReac severe Verified 03/01/20 08:10 headaches,stomach pain Review of Systems ROS Statement: Those systems with pertinent positive or pertinent negative responses have been documented in the HPI. ROS Other: All systems not noted in ROS Statement are negative. Past Medical History Past Medical History: Blood Disorder, Cancer, Hypertension, Osteoarthritis (OA) Additional Past Medical History / Comment(s): CLL (CHronic Lymphocytic Leukemia.) "Have cage around spine from L5-S1." History of Any Multi-Drug Resistant Organisms: None Reported Past Surgical History: Back Surgery, Joint Replacement, Orthopedic Surgery Additional Past Surgical History / Comment(s): Multiple orthopedic surgeries due to work injury. Bilateral eye surgery X2. Left knee replacement. Past Anesthesia/Blood Transfusion Reactions: No Reported Reaction Additional Past Anesthesia/Blood Transfusion Reaction / Comment(s): Sister PONEduardo. Past Psychological History: No Psychological Hx Reported Smoking Status: Former smoker Past Alcohol Use History: Rare Past Drug Use History: None Reported - Past Family History Mother Family Medical History: Cancer Additional Family Medical History / Comment(s): Lung cancer. General Exam Limitations: no limitations General appearance: alert, in no apparent distress Head exam: Present: atraumatic, normocephalic, normal inspection Eye exam: Present: normal appearance, PERRL, EOMI. Absent: scleral icterus, conjunctival injection, periorbital swelling ENT exam: Present: normal exam, normal oropharynx, mucous membranes moist Neck exam: Present: normal inspection, full ROM. Absent: tenderness, meni ngismus, lymphadenopathy Respiratory exam: Present: decreased breath sounds. Absent: normal lung sounds bilaterally, respiratory distress, wheezes, rales, rhonchi, stridor Cardiovascular Exam: Present: normal rhythm, tachycardia, normal heart sounds. Absent: systolic murmur, diastolic murmur, rubs, gallop, clicks GI/Abdominal exam: Present: soft, normal bowel sounds. Absent: distended, tenderness, guarding, rebound, rigid Back exam: Absent: CVA tenderness (R), CVA tenderness (L) Neurological exam: Present: alert, oriented X3 Skin exam: Present: warm, dry, intact, normal color. Absent: rash Course Vital Signs 03/01/20 03/01/20 03/01/20 06:58 07:27 08:00 Temperature 99.1 F 98.7 F Pulse Rate 120 H 116 H Respiratory 24 22 21 Rate Blood Pressure 163/90 146/96 O2 Sat by Pulse 90 L 95 Oximetry Medical Decision Making - Medical Decision Making 50-year-old presented for hypoxia, covid patient's x-ray shows diffuse infiltrates. Patient has elevated CRP, LDH, d-dimer. Patient has significant leukocytosis related to his CLL. Patient was given a dose of IV steroids. Patient case discussed with but does not wish patient be admitted with pulmonary consult. - Lab Data Result diagrams: 03/01/20 07:36 03/01/20 07:27 Lab Results 03/01/20 03/01/20 03/01/20 Range/Units 07:27 07:27 07:27 WBC (3.8-10.6) k/uL RBC (4.30-5.90) m/uL Hgb (13.0-17.5) gm/dL Hct (39.0-53.0) % MCV (80.0-100.0) fL MCH (25.0-35.0) pg MCHC (31.0-37.0) g/dL RDW (11.5-15.5) % Plt Count (150-450) k/uL MPV Neutrophils % (Manual) % Lymphocytes % (Manual) % Monocytes % (Manual) % Neutrophils # (Manual) (1.3-7.7) k/uL Lymphocytes # (Manual) (1.0-4.8) k/uL Monocytes # (Manual) (0-1.0) k/uL Nucleated RBCs (0-0) /100 WBC Manual Slide Review PT 10.5 (9.0-12.0) sec INR 1.0 (<1.2) APTT 24.7 (22.0-30.0) sec D-Dimer 1.32 H (<0.60) mg/L FEU Sodium 137 (137-145) mmol/L Potassium 3.8 (3.5-5.1) mmol/L Chloride 98 (98-107) mmol/L Carbon Dioxide 30 (22-30) mmol/L Anion Gap 9 mmol/L BUN 19 (9-20) mg/dL Creatinine 0.91 (0.66-1.25) mg/dL Est GFR (CKD-EPI)AfAm >90 (>60 ml/min/1.73 sqM) Est GFR (CKD-EPI)NonAf >90 (>60 ml/min/1.73 sqM) Glucose 113 H (74-99) mg/dL Plasma Lactic Acid Leroy 1.7 (0.7-2.0) mmol/L Calcium 8.9 (8.4-10.2) mg/dL Magnesium 2.2 (1.6-2.3) mg/dL Total Bilirubin 1.0 (0.2-1.3) mg/dL AST 61 H (17-59) U/L ALT 46 (4-49) U/L Alkaline Phosphatase 64 (38-126) U/L Lactate Dehydrogenase 1552 H (313-618) U/L C-Reactive Protein 293.3 H (<10.0) mg/L Total Protein 6.6 (6.3-8.2) g/dL Albumin 3.6 (3.5-5.0) g/dL 03/01/20 Range/Units 07:36 WBC 54.5 H* (3.8-10.6) k/uL RBC 4.27 L (4.30-5.90) m/uL Hgb 13.4 (13.0-17.5) gm/dL Hct 40.5 (39.0-53.0) % MCV 95.0 (80.0-100.0) fL MCH 31.3 (25.0-35.0) pg MCHC 33.0 (31.0-37.0) g/dL RDW 13.9 (11.5-15.5) % Plt Count 278 (150-450) k/uL MPV 7.7 Neutrophils % (Manual) 8 % Lymphocytes % (Manual) 91 % Monocytes % (Manual) 1 % Neutrophils # (Manual) 4.36 (1.3-7.7) k/uL Lymphocytes # (Manual) 49.60 H (1.0-4.8) k/uL Monocytes # (Manual) 0.55 (0-1.0) k/uL Nucleated RBCs 0 (0-0) /100 WBC Manual Slide Review Performed PT (9.0-12.0) sec INR (<1.2) APTT (22.0-30.0) sec D-Dimer (<0.60) mg/L FEU Sodium (137-145) mmol/L Potassium (3.5-5.1) mmol/L Chloride (98-107) mmol/L Carbon Dioxide (22-30) mmol/L Anion Gap mmol/L BUN (9-20) mg/dL Creatinine (0.66-1.25) mg/dL Est GFR (CKD-EPI)AfAm (>60 ml/min/1.73 sqM) Est GFR (CKD-EPI)NonAf (>60 ml/min/1.73 sqM) Glucose (74-99) mg/dL Plasma Lactic Acid [place] (0.7-2.0) mmol/L Calcium (8.4-10.2) mg/dL Magnesium (1.6-2.3) mg/dL Total Bilirubin (0.2-1.3) mg/dL AST (17-59) U/L ALT (4-49) U/L Alkaline Phosphatase (38-126) U/L Lactate Dehydrogenase (313-618) U/L C-Reactive Protein (<10.0) mg/L Total Protein (6.3-8.2) g/dL Albumin (3.5-5.0) g/dL Disposition Clinical Impression: Pneumonia due to COVID-19 virus, Hypoxia Disposition: ADMITTED IP TO THIS HOSP Condition: Serious Referrals: Twila Sanders MD [Primary Care Provider] - 1-2 days
[2020-03-01 07:52] LABS: ALT 46 U/L (4-49); AST 61 U/L (17-59); African American GFR (CKD) >90 (>60 ml/min/1.73 sqM); Albumin 3.6 g/dL (3.5-5.0); Alkaline Phosphatase 64 U/L (38-126); Anion Gap 9 mmol/L; Blood Urea Nitrogen 19 mg/dL (9-20); Calcium 8.9 mg/dL (8.4-10.2); Carbon Dioxide 30 mmol/L (22-30); Chloride 98 mmol/L (98-107); Glucose 113 mg/dL (74-99); LDH 1552 U/L (313-618); Magnesium 2.2 mg/dL (1.6-2.3); Non-African American GFR(CKD) >90 (>60 ml/min/1.73 sqM); Potassium 3.8 mmol/L (3.5-5.1); Sodium 137 mmol/L (137-145); Total Protein 6.6 g/dL (6.3-8.2)
[2020-03-01 07:58] LABS: Partial Thromboplastin Time 24.7 sec (22.0-30.0); Prothrombin Time 10.5 sec (9.0-12.0)
[2020-03-01 08:00] LABS: HCT 40.5 % (39.0-53.0); HGB 13.4 gm/dL (13.0-17.5); MCH 31.3 pg (25.0-35.0); Mean Platelet Volume 7.7; Platelet Count 278 k/uL (150-450); RBC 4.27 m/uL (4.30-5.90); RDW 13.9 % (11.5-15.5)
--- NOTE | 2020-03-01 08:00 | XR ---
EXAMINATION TYPE: XR chest 2V DATE OF EXAM: 03/01/2020 COMPARISON: 11/13/2016 INDICATION: Short of breath TECHNIQUE: Frontal and lateral views of the chest are obtained. FINDINGS: The heart size is normal. The pulmonary vasculature is normal. Patchy bilateral lung infiltrates are present.. IMPRESSION: 1. Patchy bilateral lung infiltrates can be compatible with atypical pneumonia.
[2020-03-01 08:02] LABS: D-Dimer 1.32 mg/L FEU (<0.60)
[2020-03-01 08:08] LABS: WBC 54.5 k/uL (3.8-10.6)
[2020-03-01 08:25] LABS: C Reactive Protein 293.3 mg/L (<10.0)
[2020-03-01 08:47] LABS: Monocytes # (M) 0.55 k/uL (0-1.0); Neutrophils # (M) 4.36 k/uL (1.3-7.7); Neutrophils % (M) 8 %; Nucleated Red Blood Cells 0 /100 WBC (0-0); Total Cells Counted 100
[2020-03-01] MEDS ORDERED: ACETAMINOPHEN TAB 500 MG TAB PO PRN (09:00)
[2020-03-01] MEDS ORDERED: HYDROmorphone 1 MG/ML 1 ML SYRINGE IVP STA (09:12)
--- NOTE | 2020-03-01 09:14 | CT ---
CT CHEST FOR PULMONARY EMBOLISM. EXAMINATION TYPE: CT chest angio for PE DATE OF EXAM: 03/01/2020 INDICATION: SOB CT DLP: 538.4 mGycm, Automated exposure control for dose reduction was used. CONTRAST: Patient injected with 71 mL of Isovue 370. COMPARISON: None TECHNIQUE: CT of the chest is performed on a spiral scan at 2 mm thick sections. Study is performed with intravenous contrast timed for evaluation for pulmonary embolism. This will limit additional po rtions of the evaluation. 3-D MIP images reconstructed by the technologist are reviewed on the compu ter in the coronal and sagittal planes. FINDINGS: No persistent filling defects are evident to suggest an acute pulmonary embolism. There is enlarged lymphadenopathy within the bilateral axilla. Multiple superior mediastinal lymph no malia are present. Some larger mediastinal adenopathy is at the aortopulmonic window measuring 1.9 cm. Some right hilar adenopathy is present. Subcarinal adenopathy is markedly enlarged measuring 2.6 cm. Infrahilar adenopathy is present bilaterally. A 1.1 cm retrocrural lymph node is present. There may b e some partially visualized portal adenopathy present. The ascending aorta diameter at the level of the main pulmonary artery is 3.2 cm. The main pulmonary artery diameter at the bifurcation is 3.0 cm. There are patchy opacities within the bilateral lung schulz. These are nonspecific. Atypical pneumoni a should be considered. Findings are greater in the upper lung schulz. A more focal density may be wi thin the lingula estimated at 0.7 cm. Series [address] section through the upper abdomen are unremarkable. IMPRESSIONS: 1. No acute pulmonary embolism. 2. Multiple enlarged lymph nodes within the mediastinum, hilum bilaterally, and bilateral axilla. Mitch e large adenopathy is present within the retrocrural and portal vein regions. Correlate with the pj ent's history. Lymphoma should be considered. 3. Patchy infiltrates present bilaterally within the lung schulz greater in the upper lung schulz. Co nsider atypical pneumonia.
[2020-03-01] MEDS: dexAMETHasone 2 MG TAB PO SCH (09:17)
[2020-03-01] MEDS: ALBUTEROL HFA INHALER INHALATION PRN ×2 (10:25→20:38)
[2020-03-01] MEDS: ENOXAPARIN 40 MG/0.4 ML SYRINGE SQ SCH (12:24)
--- NOTE | 2020-03-01 12:52 | P.HPIM ---
History of Present Illness The patient is a very pleasant 48-year-old male with known history of CLL and or lymph adenopathy came in with complaints of shortness of breath with saturations going down to as low as the 70s and 80s. Patient was diagnosed with the cold wind 19 recently and patient symptoms has been going on since February 17. Patient was afebrile More than 24 hours but before that patient was having high- grade fevers. She was comparing of dry cough without any significant sputum production. The patient presently doesn't have any body aches but was pretty sick when he was diagnosed. Patient is presently on 3 L of oxygen. Patient was started on Decadron and subsequently admitted. Patient's d-dimer is 1.32 and other inflammatory markers are elevated as well and patient might blood cell count is 54,000 from a chronic lymphocytic leukemia. Review of Systems REVIEW OF SYSTEMS: CONSTITUTIONAL: As mentioned in HPI HEENT: No recent visual problems or hearing problems. Denied any sore throat. CARDIOVASCULAR: No chest pain, orthopnea, PND, no palpitations, no syncope. PULMONARY: no hemoptysis. GASTROINTESTINAL: No diarrhea, no nausea, no vomiting, no abdominal pain. NEUROLOGICAL: No headaches, no weakness, no numbness. HEMATOLOGICAL: Denies any bleeding or petechiae. GENITOURINARY: Denies any burning micturition, frequency, or urgency. MUSCULOSKELETAL/RHEUMATOLOGICAL: Denies any joint pain, swelling, or any muscle pain. ENDOCRINE: Denies any polyuria or polydipsia. The rest of the 14-point review of systems is negative. Past Medical History Past Medical History: Blood Disorder, Cancer, Hypertension, Osteoarthritis (OA) Additional Past Medical History / Comment(s): Pt diagnosed with covid 19 on 02/20/20 at [facility]. CLL (CHronic Lymphocytic Leukemia), chronic low back pain-"Have cage around spine from L5-S1.", past gastric ulcer. History of Any Multi-Drug Resistant Organisms: None Reported Past Surgical History: Back Surgery, Joint Replacement, Orthopedic Surgery Additional Past Surgical History / Comment(s): L5-S1 cage, total L knee arthroplasty, multiple ortho procedures d/t work injuries, bilateral eye surgery for increased eye pressure to stop progression to glaucoma, ESS/septoplasty turbinates, lipoma removed from R arm. Past Anesthesia/Blood Transfusion Reactions: No Reported Reaction Additional Past Anesthesia/Blood Transfusion Reaction / Comment(s): Sister CRISSY. Smoking Status: Former smoker - Past Family History Mother Family Medical History: Cancer Additional Family Medical History / Comment(s): Mother of lung cancer at the age of 55 yrs. She was a smoker. Father Family Medical History: CVA/TIA Additional Family Medical History / Comment(s): Father is 75 yrs old. Medications and Allergies Home Medications Medication Instructions Recorded Confirmed Type Morphine Sulfate [Ms Contin] 30 mg PO BID 01/25/16 03/01/20 History Quinapril HCl [Accupril] 40 mg PO QAM 01/25/16 03/01/20 History hydroCHLOROthiazide [Hydrodiuril] 25 mg PO QAM 01/25/16 03/01/20 History Testosterone Cypionate 200 mg IM Q16D 12/18/17 03/01/20 History [Depo-Testosterone] Ibuprofen [Motrin] 800 mg PO TID PRN 01/22/18 03/01/20 History Ascorbic Acid [Vitamin C] 1,000 mg PO DAILY 10/21/18 03/01/20 History Cyclobenzaprine [Flexeril] 10 mg PO TID PRN 01/31/19 03/01/20 History Active Hexose Correlated [place] 3,000 mg PO DAILY 03/01/20 03/01/20 History Alpha Lipoic Acid 600 mg PO DAILY 03/01/20 03/01/20 History Arteminisin 200 mg PO DAILY 03/01/20 03/01/20 History Beta Carotene 3,000 mcg PO DAILY 03/01/20 03/01/20 History Chaga Mushroom 1,000 mg PO DAILY 03/01/20 03/01/20 History Colostrum 650 mg PO DAILY 03/01/20 03/01/20 History Curcuwin 500 1,000 mg PO DAILY 03/01/20 03/01/20 History Egcg 3,900 mg PO DAILY 03/01/20 03/01/20 History Inositol Hexaphoshpate Ip6 4,000 mg PO DAILY 03/01/20 03/01/20 History Lutein And Zeaxanthin 1 cap PO DAILY 03/01/20 03/01/20 History Lycopene 50 mg PO DAILY 03/01/20 03/01/20 History Magnesium Cypionate 400 mg PO DAILY 03/01/20 03/01/20 History [place]-3 2,500 mg PO DAILY 03/01/20 03/01/20 History Reishi Mushroom 900 mg PO DAILY 03/01/20 03/01/20 History Selenium 250 mcg PO DAILY 03/01/20 03/01/20 History Triamcinolone 0.1% Cream [Kenalog 1 applic TOPICAL BID PRN 03/01/20 03/01/20 History 0.1% Cream] Vitamin D W/ Coconut Oil 125 mcg PO DAILY 03/01/20 03/01/20 History Vitamin E (Dl,Tocopheryl Acet) 400 unit PO DAILY 03/01/20 03/01/20 History [Vitamin E] oxyCODONE HCL [oxyCODONE HCL (IR)] 10 mg PO BID PRN 03/01/20 03/01/20 History Allergies Allergy/AdvReac Type Severity Reaction Status Date / Time meperidine [From Demerol] Allergy Rash/Hives Verified 03/01/20 08:10 sulfamethoxazole Allergy Rash/Hives Verified 03/01/20 08:10 [From Bactrim] trimethoprim [From Bactrim] Allergy Rash/Hives Verified 03/01/20 08:10 atenolol AdvReac severe Verified 03/01/20 08:10 headaches metoprolol AdvReac Lethargic,stomach Verified 03/01/20 08:10 pain topiramate AdvReac severe Verified 03/01/20 08:10 headaches,stomach pain Physical Exam Vitals: Vital Signs Temp Pulse Pulse Resp BP BP Pulse Ox 03/01/20 10:49 98.4 F 109 H 18 156/99 97 03/01/20 10:39 111 H 03/01/20 10:00 104 H 19 152/102 94 L 03/01/20 09:00 98.7 F 107 H 20 143/89 95 03/01/20 08:00 98.7 F 116 H 21 146/96 95 03/01/20 07:27 22 03/01/20 06:58 99.1 F 120 H 24 163/90 90 L Intake and Output 02/29/20 03/01/20 03/01/20 22:59 06:59 14:59 Other: Weight 122.016 kg 122.016 kg PHYSICAL EXAMINATION: GENERAL: The patient is alert and oriented x3, not in any acute distress. Well developed, well nourished. HEENT: Pupils are round and equally reacting to light. EOMI. No scleral icterus. No conjunctival pallor. Normocephalic, atraumatic. No pharyngeal erythema. No thyromegaly. CARDIOVASCULAR: S1 and S2 present. No murmurs, rubs, or gallops. PULMONARY: Chest is clear to auscultation, no wheezing or crackles. ABDOMEN: Soft, nontender, nondistended, normoactive bowel sounds. No palpable organomegaly. MUSCULOSKELETAL: No joint swelling or deformity. EXTREMITIES: No cyanosis, clubbing, or pedal edema. NEUROLOGICAL: Gross neurological examination did not reveal any focal deficits. SKIN: No rashes. Results CBC & Chem 7: 03/01/20 07:36 03/01/20 07:27 Labs: Abnormal Lab Results - Last 24 Hours (Table) 03/01/20 03/01/20 03/01/20 Range/Units 07:27 07:27 07:36 WBC 54.5 H* (3.8-10.6) k/uL RBC 4.27 L (4.30-5.90) m/uL Lymphocytes # (Manual) 49.60 H (1.0-4.8) k/uL D-Dimer 1.32 H (<0.60) mg/L FEU Glucose 113 H (74-99) mg/dL AST 61 H (17-59) U/L Lactate Dehydrogenase 1552 H (313-618) U/L C-Reactive Protein 293.3 H (<10.0) mg/L Thrombosis Risk Factor Assmnt - Choose All That Apply Any of the Below Risk Factors Present?: Yes Each Factor Represents 1 point: Age 41-60 years, Obesity (BMI >25), Serious lung disease incl. pneumonia (< 1month) Other Risk Factors: No Other congenital or acquired thrombophilia - If yes, enter type in comment: No Thrombosis Risk Factor Assessment Total Risk Factor Score: 3 Thrombosis Risk Factor Assessment Level: Moderate Risk Assessment and Plan Plan: - acute hypoxic respiratory failure: Secondary to covid 19. Patient was started on Remdesivir as well by pulmonology and patient was started on zinc. Lovenox. Continued respiratory support presently untreated surprising closely monitored. -Hypertension patient is on JUAN J inhibitor and hydrochlorothiazide which will be resumed -History of chronic lymphocytic leukemia which is being monitored patient does have lymphadenopathy in the cervical area which is chronic which was seen on the computed tomography scan. -Rule out pulmonary embolism -Chronic low back pain -DVT prophylaxis with Lovenox
[2020-03-01 15:58] LABS: Ferritin 2345.4 ng/mL (22.0-322.0)
--- NOTE | 2020-03-01 16:23 | P.CNPUL ---
History of Present Illness Consult date: 03/01/20 Reason for consult: dyspnea, hypoxemia, pneumonia, abnormal CXR/CT Chief complaint: Dyspnea, hypoxia History of present illness: [id number] white male patient of Dr. Twila Sanders, with past medical history of CLL, currently not on any treatment, hypertension, osteoarthritis, previous history of back surgeries, left knee surgery, eye surgery, patient is a former smoker. 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 He went on to develop worsening shortness of breath, and cough. On 03/01/2020 patient came into the emergency department for evaluation of worsening dyspnea, cough, and hypoxemia. He notices pulse ox dropping down into the low 80s when he was measuring his pulse oximetry at home. He had been taking [id number] vitamins. His been having on and off fevers. Patient had elevated CRP, LDH and d-dimer, he has a significant leukocytosis related to his history of CLL, chest x-ray showed diffuse infiltrates. Currently on 3 L of oxygen his pulse ox of 94%, and afebrile while in the hospital, he is very short of breath with any exertion, but he sitting up in the chair currently, appears to be in no acute distress, he was started on steroids in the form of Decadron, prophylactic dose Lovenox was added, he is on Pepcid, vitamin C, vitamin D, and zinc. We requested that Remdesivir treatment for him which requires further approval. Review of Systems All systems: negative Constitutional: Denies chills, Denies fever Eyes: denies blurred vision, denies pain Ears, nose, mouth and throat: Denies headache, Denies sore throat Cardiovascular: Denies chest pain, Denies shortness of breath Respiratory: Reports dyspnea, Denies cough Gastrointestinal: Denies abdominal pain, Denies diarrhea, Denies nausea, Denies vomiting Musculoskeletal: Denies myalgias Integumentary: Denies pruritus, Denies rash Neurological: Denies numbness, Denies weakness Psychiatric: Denies anxiety, Denies depression Endocrine: Denies fatigue, Denies weight change Past Medical History Past Medical History: Blood Disorder, Cancer, Hypertension, Osteoarthritis (OA) Additional Past Medical History / Comment(s): Pt diagnosed with covid 19 on 02/20/20 at [facility]. CLL (CHronic Lymphocytic Leukemia), chronic low back pain-"Have cage around spine from L5-S1.", past gastric ulcer. History of Any Multi-Drug Resistant Organisms: None Reported Past Surgical History: Back Surgery, Joint Replacement, Orthopedic Surgery Additional Past Surgical History / Comment(s): L5-S1 cage, total L knee arthroplasty, multiple ortho procedures d/t work injuries, bilateral eye surgery for increased eye pressure to stop progression to glaucoma, ESS/septoplasty turbinates, lipoma removed from R arm. Past Anesthesia/Blood Transfusion Reactions: No Reported Reaction Additional Past Anesthesia/Blood Transfusion Reaction / Comment(s): Sister PONV. Smoking Status: Former smoker - Past Family History Mother Family Medical History: Cancer Additional Family Medical History / Comment(s): Mother of lung cancer at the age of 55 yrs. She was a smoker. Father Family Medical History: CVA/TIA Additional Family Medical History / Comment(s): Father is 75 yrs old. Medications and Allergies Home Medications Medication Instructions Recorded Confirmed Type Morphine Sulfate [Ms Contin] 30 mg PO BID 01/25/16 03/01/20 History Quinapril HCl [Accupril] 40 mg PO QAM 01/25/16 03/01/20 History hydroCHLOROthiazide [Hydrodiuril] 25 mg PO QAM 01/25/16 03/01/20 History Testosterone Cypionate 200 mg IM Q16D 12/18/17 03/01/20 History [Depo-Testosterone] Ibuprofen [Motrin] 800 mg PO TID PRN 01/22/18 03/01/20 History Ascorbic Acid [Vitamin C] 1,000 mg PO DAILY 10/21/18 03/01/20 History Cyclobenzaprine [Flexeril] 10 mg PO TID PRN 01/31/19 03/01/20 History Active Hexose Correlated [place] 3,000 mg PO DAILY 03/01/20 03/01/20 History Alpha Lipoic Acid 600 mg PO DAILY 03/01/20 03/01/20 History Arteminisin 200 mg PO DAILY 03/01/20 03/01/20 History Beta Carotene 3,000 mcg PO DAILY 03/01/20 03/01/20 History Chaga Mushroom 1,000 mg PO DAILY 03/01/20 03/01/20 History Colostrum 650 mg PO DAILY 03/01/20 03/01/20 History Curcuwin 500 1,000 mg PO DAILY 03/01/20 03/01/20 History Egcg 3,900 mg PO DAILY 03/01/20 03/01/20 History Inositol Hexaphoshpate Ip6 4,000 mg PO DAILY 03/01/20 03/01/20 History Lutein And Zeaxanthin 1 cap PO DAILY 03/01/20 03/01/20 History Lycopene 50 mg PO DAILY 03/01/20 03/01/20 History Magnesium Cypionate 400 mg PO DAILY 03/01/20 03/01/20 History [place]-3 2,500 mg PO DAILY 03/01/20 03/01/20 History Reishi Mushroom 900 mg PO DAILY 03/01/20 03/01/20 History Selenium 250 mcg PO DAILY 03/01/20 03/01/20 History Triamcinolone 0.1% Cream [Kenalog 1 applic TOPICAL BID PRN 03/01/20 03/01/20 History 0.1% Cream] Vitamin D W/ Coconut Oil 125 mcg PO DAILY 03/01/20 03/01/20 History Vitamin E (Dl,Tocopheryl Acet) 400 unit PO DAILY 03/01/20 03/01/20 History [Vitamin E] oxyCODONE HCL [oxyCODONE HCL (IR)] 10 mg PO BID PRN 03/01/20 03/01/20 History Allergies Allergy/AdvReac Type Severity Reaction Status Date / Time meperidine [From Demerol] Allergy Rash/Hives Verified 03/01/20 08:10 sulfamethoxazole Allergy Rash/Hives Verified 03/01/20 08:10 [From Bactrim] trimethoprim [From Bactrim] Allergy Rash/Hives Verified 03/01/20 08:10 atenolol AdvReac severe Verified 03/01/20 08:10 headaches metoprolol AdvReac Lethargic,stomach Verified 03/01/20 08:10 pain topiramate AdvReac severe Verified 03/01/20 08:10 headaches,stomach pain Physical Exam Vitals: Vital Signs Temp Pulse Pulse Resp BP BP Pulse Ox 03/01/20 14:25 98.1 F 106 H 18 143/86 97 12/17/20 10:49 98.4 F 109 H 18 156/99 97 03/01/20 10:39 111 H 03/01/20 10:00 104 H 19 152/102 94 L 03/01/20 09:00 98.7 F 107 H 20 143/89 95 03/01/20 08:00 98.7 F 116 H 21 146/96 95 03/01/20 07:27 22 03/01/20 06:58 99.1 F 120 H 24 163/90 90 L Intake and Output 03/01/20 03/01/20 03/01/20 06:59 14:59 22:59 Other: # Voids 1 Weight 122.016 kg 122.016 kg GENERAL EXAM: Alert, very pleasant, 50-year-old white female, on 3 L of oxygen pulse ox of 94%, comfortable in no apparent distress. HEAD: Normocephalic/atraumatic. EYES: Normal reaction of pupils, equal size. Conjunctiva pink, sclera white. NOSE: Clear with pink turbinates. THROAT: No erythema or exudates. NECK: No masses, no JVD, no thyroid enlargement, no adenopathy. CHEST: No chest wall deformity. Symmetrical expansion. LUNGS: Equal air entry with bibasilar crackles, but no wheeze, rhonchi or dullness. CVS: Regular rate and rhythm, normal S1 and S2, no gallops, no murmurs, no rubs ABDOMEN: Soft, nontender. No hepatosplenomegaly, normal bowel sounds, no guarding or rigidity. EXTREMITIES: No clubbing, no edema, no cyanosis, 2+ pulses and upper and lower extremities. MUSCULOSKELETAL: Muscle strength and tone normal. SPINE: No scoliosis or deformity SKIN: No rashes CENTRAL NERVOUS SYSTEM: Alert and oriented -3. No focal deficits, tone is normal in all 4 extremities. PSYCHIATRIC: Alert and oriented -3. Appropriate affect. Intact judgment and insight. Results - Laboratory Findings CBC and BMP: 03/01/20 07:36 03/01/20 07:27 PT/INR, D-dimer PT 10.5 sec (9.0-12.0) 03/01/20 07:27 INR 1.0 (<1.2) 03/01/20 07:27 D-Dimer 1.32 mg/L FEU (<0.60) H 03/01/20 07:27 Abnormal lab findings: Abnormal Labs 03/01/20 03/01/20 03/01/20 07:27 07:27 07:36 WBC 54.5 H* RBC 4.27 L Lymphocytes # (Manual) 49.60 H D-Dimer 1.32 H Glucose 113 H Ferritin 2345.4 H AST 61 H Lactate Dehydrogenase 1552 H C-Reactive Protein 293.3 H - Diagnostic Findings Chest x-ray: report reviewed, image reviewed CT scan - chest: report reviewed, image reviewed Assessment and Plan Plan: Assessment: #1. Acute hypoxic respiratory failure related to quit 19 pneumonitis, patient tested positive on 02/20/2020 #2. Intermittent fevers, worsening shortness of breath, cough, headaches, sweats and chills, related to the above #3. History of CLL #4. Hypertension #5. Chronic back pain #6. Previous spine surgeries, left total knee arthroplasty, multiple orthopedic surgeries #7. Glaucoma with previous history of eye surgery #8. Former smoker #9. D-dimer elevated at 1.32, related to COVID 19 infection #10. Elevated inflammatory markers including LDH, CRP, and ferritin related to acute quit 19 infection Plan: We will continue the patient on Decadron, we will add Lovenox at prophylactic dose, we will add Remdesivir pending further approval from the co founder and chief strategy officer, patient may be out of the window for Remdesivir, we will continue vitamin C, Pepcid, continue vitamin D, and zinc. Follow-up chest x-ray tomorrow, monitor oxygenation pattern, monitor febrile pattern, we will transfuse the patient with 2 units of IV immunoglobulin, convalescent plasma. We'll continue to follow I performed a history & physical examination of the patient and discussed their management with my nurse practitioner, Avril Richter. I reviewed the nurse practitioner's note and agree with the documented findings and plan of care. Belen ng sounds are positive for diminished breath sounds The findings and the impression was discussed with the patient. I attest to the documentation by the nurse practitioner. Time with Patient: Greater than 30
[2020-03-01] MEDS: guaiFENesin-DM 100-10MG/5ML 10 ML CUP PO PRN (17:12)
[2020-03-01] MEDS: MORPHINE SULFATE ER 30 MG TABLET PO SCH (19:58)
[2020-03-01] MEDS: FAMOTIDINE 20 MG TAB PO SCH (19:58)
[2020-03-02] MEDS: guaiFENesin-DM 100-10MG/5ML 10 ML CUP PO PRN ×2 (03:54→15:03)
[2020-03-02] MEDS: MORPHINE SULFATE ER 30 MG TABLET PO SCH ×2 (08:46→21:14)
[2020-03-02] MEDS: ENOXAPARIN 40 MG/0.4 ML SYRINGE SQ SCH (08:46)
[2020-03-02] MEDS: hydroCHLOROthiazide 25 MG TAB PO SCH (08:46)
[2020-03-02] MEDS: lisinopriL 20 MG TAB PO SCH (08:46)
[2020-03-02] MEDS: FAMOTIDINE 20 MG TAB PO SCH ×2 (08:46→21:14)
[2020-03-02] MEDS: dexAMETHasone 2 MG TAB PO SCH (08:46)
[2020-03-02] MEDS: ZINC SULFATE 220 MG CAP PO SCH (08:46)
[2020-03-02] MEDS: CHOLECALCIFEROL 400 UNIT TAB PO SCH (08:47)
[2020-03-02] MEDS: ASCORBIC ACID 500 MG TAB PO SCH (08:47)
[2020-03-02] MEDS: ALBUTEROL HFA INHALER INHALATION PRN ×3 (09:01→19:30)
--- NOTE | 2020-03-02 09:33 | P.PN ---
Subjective Patient is admitted for Covid 19. Patient received plasma , patient is also receiving Remdesivir, first dose will be today. Patient is presently on 4 L of oxygen and no fever today not short of breath on 4 L of oxygen. Constitutional: Denied any fatigue denied any fever. Cardio vascular: denied any chest pain, palpitations Gastrointestinal denied any nausea vomiting Pulmonary: Denied any shortness of breath cough Neurologic denied any new focal deficits All inpatient medications were reviewed and appropriate changes in these medications as dictated in the interval history and assessment and plan. Objective - Vital Signs Vital signs: Vital Signs Temp 97.8 F 03/02/20 05:56 Pulse 88 03/02/20 05:56 Resp 17 03/02/20 05:56 BP 113/68 03/02/20 05:56 Pulse Ox 95 03/02/20 05:56 Intake & Output 03/01/20 03/02/20 03/02/20 18:59 06:59 18:59 Intake Total 0 340 Balance 0 340 Weight 122.016 kg Intake: Blood Product 0 340 Ffp Convalescent Plasma 0 340 Cpd Unit [id number] Other: # Voids 1 2 - Exam PHYSICAL EXAMINATION: GENERAL: The patient is alert and oriented x3, not in any acute distress. Well developed, well nourished. HEENT: Pupils are round and equally reacting to light. EOMI. No scleral icterus. No conjunctival pallor. Normocephalic, atraumatic. No pharyngeal erythema. No thyromegaly. CARDIOVASCULAR: S1 and S2 present. No murmurs, rubs, or gallops. PULMONARY: Chest is clear to auscultation, no wheezing or crackles. ABDOMEN: Soft, nontender, nondistended, normoactive bowel sounds. No palpable organomegaly. MUSCULOSKELETAL: No joint swelling or deformity. EXTREMITIES: No cyanosis, clubbing, or pedal edema. NEUROLOGICAL: Gross neurological examination did not reveal any focal deficits. SKIN: No rashes. - Labs CBC & Chem 7: 03/01/20 07:36 03/01/20 07:27 Labs: Abnormal Lab Results - Last 24 Hours (Table) 03/01/20 03/01/20 Range/Units 07:27 07:36 Ferritin 2345.4 H (22.0-322.0) ng/mL Procalcitonin 0.32 H (0.02-0.09) ng/mL Assessment and Plan Plan: - acute hypoxic respiratory failure: Secondary to covid 19. Patient was started on Remdesivir as well by pulmonology and patient was started on zinc. Lovenox. Continued respiratory support presently untreated surprising closely monitored. He received convolscant plasma -Hypertension patient is on JUAN J inhibitor and hydrochlorothiazide which will be resumed -History of chronic lymphocytic leukemia which is being monitored patient does have lymphadenopathy in the cervical area which is chronic which was seen on the computed tomography scan. -Rule out pulmonary embolism -Chronic low back pain -DVT prophylaxis with Lovenox
[2020-03-02] MEDS ORDERED: REMDESIVIR 200 MG in SODIUM CHLORIDE 0.9% 250 ML IVPB ONE (10:00)
[2020-03-02 14:06] VITALS: BMI 42.1
--- NOTE | 2020-03-02 15:25 | P.PN ---
Subjective Progress Note Date: 03/02/20 Principal diagnosis: Dyspnea, hypoxemia, pneumonia, abnormal chest x-ray A 50-year-old white male patient of Dr. Twila Sanders, with past medical history of CLL, currently not on any treatment, hypertension, osteoarthritis, previous history of back surgeries, left knee surgery, eye surgery, patient is a former smoker. 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 He went on to develop worsening shortness of breath, and cough. On 03/01/2020 patient came into the emergency department for evaluation of worsening dyspnea, cough, and hypoxemia. He notices pulse ox dropping down into the low 80s when he was measuring his pulse oximetry at home. He had been taking [id number]-apfeqku vitamins. His been having on and off fevers. Patient had elevated CRP, LDH and d-dimer, he has a significant leukocytosis related to his history of CLL, chest x-ray showed diffuse infiltrates. Currently on 3 L of oxygen his pulse ox of 94%, and afebri le while in the hospital, he is very short of breath with any exertion, but he sitting up in the chair currently, appears to be in no acute distress, he was started on steroids in the form of Decadron, prophylactic dose Lovenox was added, he is on Pepcid, vitamin C, vitamin D, and zinc. We requested that Remdesivir treatment for him which requires further approval. On 03/02/2020 patient seen in follow-up on general medical surgical floor. He is awake and alert, currently remains on 4 L of oxygen his pulse ox 90%, which can probably be weaned down further, still coughing, and his cough is dry, no worsening dyspnea, no fever overnight, no nausea vomiting diarrhea, no complaints of chest discomfort, his Remdesivir was approved by the medical administration and patient was started on it today. We also ordered, serum plasma 2, he received 1 unit so far yesterday. No new labs today, no worsening of his symptoms, we'll obtain a set of inflammatory markers for tomorrow, and follow-up chest x-ray tomorrow. Objective - Vital Signs Vital signs: Vital Signs Temp 97.9 F 03/02/20 14:00 Pulse 96 03/02/20 14:00 Resp 16 03/02/20 14:00 BP 119/72 03/02/20 14:00 Pulse Ox 96 03/02/20 14:00 Intake & Output 03/01/20 03/02/20 03/02/20 18:59 06:59 18:59 Intake Total 0 340 Balance 0 340 Weight 122.016 kg 122.016 kg Intake: Blood Product 0 340 Ffp Convalescent Plasma 0 340 Cpd Unit [id number] Other: # Voids 1 2 - Exam GENERAL EXAM: Alert, very pleasant, 50-year-old white female, on 4 L of oxygen pulse ox of 96%, comfortable in no apparent distress. HEAD: Normocephalic/atraumatic. EYES: Normal reaction of pupils, equal size. Conjunctiva pink, sclera white. NOSE: Clear with pink turbinates. THROAT: No erythema or exudates. NECK: No masses, no JVD, no thyroid enlargement, no adenopathy. CHEST: No chest wall deformity. Symmetrical expansion. LUNGS: Equal air entry with bibasilar crackles, but no wheeze, rhonchi or dullness. CVS: Regular rate and rhythm, normal S1 and S2, no gallops, no murmurs, no rubs ABDOMEN: Soft, nontender. No hepatosplenomegaly, normal bowel sounds, no guarding or rigidity. EXTREMITIES: No clubbing, no edema, no cyanosis, 2+ pulses and upper and lower extremities. MUSCULOSKELETAL: Muscle strength and tone normal. SPINE: No scoliosis or deformity SKIN: No rashes CENTRAL NERVOUS SYSTEM: Alert and oriented -3. No focal deficits, tone is normal in all 4 extremities. PSYCHIATRIC: Alert and oriented -3. Appropriate affect. Intact judgment and insight. - Labs CBC & Chem 7: 03/01/20 07:36 03/01/20 07:27 Labs: Abnormal Lab Results - Last 24 Hours (Table) 03/01/20 03/01/20 Range/Units 07:27 07:36 Ferritin 2345.4 H (22.0-322.0) ng/mL Procalcitonin 0.32 H (0.02-0.09) ng/mL Assessment and Plan Plan: Assessment: #1. Acute hypoxic respiratory failure related to quit 19 pneumonitis, patient tested positive on 02/20/2020 #2. Intermittent fevers, worsening shortness of breath, cough, headaches, sweats and chills, related to the above #3. History of CLL #4. Hypertension #5. Chronic back pain #6. Previous spine surgeries, left total knee arthroplasty, multiple orthopedic surgeries #7. Glaucoma with previous history of eye surgery #8. Former smoker #9. D-dimer elevated at 1.32, related to COVID 19 infection #10. Elevated inflammatory markers including LDH, CRP, and ferritin related to acute quit 19 infection Plan: Continue current medical treatment, today is day 1 of Remdesivir treatment, patient is awaiting his second dose of IV immunoglobulin, continue steroids, and Lovenox, follow-up inflammatory markers d-dimer and chest x-ray tomorrow. I performed a history & physical examination of the patient and discussed their management with my nurse practitioner, Avril Richter. I reviewed the nurse practitioner's note and agree with the documented findings and plan of care. Lung sounds are positive for diminished breath sounds The findings and the impression was discussed with the patient. I attest to the documentation by the nurse practitioner. Time with Patient: Less than 30
[2020-03-03] MEDS: guaiFENesin-DM 100-10MG/5ML 10 ML CUP PO PRN ×3 (00:15→22:08)
--- NOTE | 2020-03-03 07:49 | XR ---
EXAMINATION TYPE: XR chest 1V portable DATE OF EXAM: 03/03/2020 COMPARISON: 03/01/2020 HISTORY: Shortness of breath TECHNIQUE: Single frontal view of the chest is obtained. FINDINGS: Patchy bilateral multifocal areas of infiltrate. No pleural effusion. Heart size normal. N o pneumothorax. Given differences in technique no significant interval change. IMPRESSION: Stable patchy bilateral infiltrate.
[2020-03-03] MEDS: REMDESIVIR 100 MG in SODIUM CHLORIDE 0.9% 250 ML IVPB SCH (09:00)
[2020-03-03] MEDS: lisinopriL 20 MG TAB PO SCH (09:01)
[2020-03-03] MEDS: ASCORBIC ACID 500 MG TAB PO SCH (09:01)
[2020-03-03] MEDS: hydroCHLOROthiazide 25 MG TAB PO SCH (09:01)
[2020-03-03] MEDS: MORPHINE SULFATE ER 30 MG TABLET PO SCH ×2 (09:02→21:22)
[2020-03-03] MEDS: FAMOTIDINE 20 MG TAB PO SCH ×2 (09:02→21:22)
[2020-03-03] MEDS: dexAMETHasone 2 MG TAB PO SCH (09:02)
[2020-03-03] MEDS: CHOLECALCIFEROL 400 UNIT TAB PO SCH (09:02)
[2020-03-03] MEDS: ENOXAPARIN 40 MG/0.4 ML SYRINGE SQ SCH (09:03)
[2020-03-03] MEDS: ZINC SULFATE 220 MG CAP PO SCH (09:03)
--- NOTE | 2020-03-03 09:37 | P.PN ---
Subjective Patient is admitted for Covid 19. Patient received plasma , patient is also receiving Remdesivir, first dose will be today. Patient is presently on 4 L of oxygen and no fever today not short of breath on 4 L of oxygen. 03/03/2020 Patient blood pressure is bit on the lower side hydrochlorothiazide will be discontinued will cut down the dose of lisinopril patient remains on 4 L of oxygen still feels tired Constitutional: As mentioned above Cardio vascular: denied any chest pain, palpitations Gastrointestinal denied any nausea vomiting Pulmonary: Denied any shortness of breath cough Neurologic denied any new focal deficits All inpatient medications were reviewed and appropriate changes in these medications as dictated in the interval history and assessment and plan. Objective - Vital Signs Vital signs: Vital Signs Temp 97.6 F 03/03/20 05:55 Pulse 70 03/03/20 05:55 Resp 18 03/03/20 08:00 BP 107/65 03/03/20 05:55 Pulse Ox 98 03/03/20 05:55 Intake & Output 03/02/20 03/03/20 03/03/20 18:59 06:59 18:59 Intake Total 250 Balance 250 Weight 122.016 kg Intake: Intake, IV Titration 250 Amount Remdesivir 100 mg In 250 Sodium Chloride 0.9% 250 ml @ 250 mls/hr IVPB DAILY@1000 [facility] Rx#: [id number] Other: # Voids 4 - Exam PHYSICAL EXAMINATION: GENERAL: The patient is alert and oriented x3, not in any acute distress. Well developed, well nourished. HEENT: Pupils are round and equally reacting to light. EOMI. No scleral icterus. No conjunctival pallor. Normocephalic, atraumatic. No pharyngeal erythema. No thyromegaly. CARDIOVASCULAR: S1 and S2 present. No murmurs, rubs, or gallops. PULMONARY: Chest is clear to auscultation, no wheezing or crackles. ABDOMEN: Soft, nontender, nondistended, normoactive bowel sounds. No palpable organomegaly. MUSCULOSKELETAL: No joint swelling or deformity. EXTREMITIES: No cyanosis, clubbing, or pedal edema. NEUROLOGICAL: Gross neurological examination did not reveal any focal deficits. SKIN: No rashes. - Labs CBC & Chem 7: 03/01/20 07:36 03/01/20 07:27 Assessment and Plan Plan: - acute hypoxic respiratory failure: Secondary to covid 19. Patientis on Remdesivir as well by pulmonology and patient was started on zinc. Lovenox. Continued respiratory support presently untreated surprising closely monitored. He received convolscant plasma -Hypertension patient is on JUAN J inhibitor and hydrochlorothiazide which will be resumed -History of chronic lymphocytic leukemia which is being monitored patient does have lymphadenopathy in the cervical area which is chronic which was seen on the computed tomography scan. -Rule out pulmonary embolism -Chronic low back pain -DVT prophylaxis with Lovenox
[2020-03-03 10:54] LABS: C Reactive Protein 5.1 mg/dL (0.0-0.8)
[2020-03-03] MEDS: ALBUTEROL HFA INHALER INHALATION PRN ×3 (13:39→21:20)
--- NOTE | 2020-03-03 14:13 | P.PN ---
Subjective Progress Note Date: 03/03/20 Principal diagnosis: CoVID 19 pneumonia A 50-year-old white male patient of Dr. Twila Sanders, with past medical history of CLL, currently not on any treatment, hypertension, osteoarthritis, previous history of back surgeries, left knee surgery, eye surgery, patient is a former smoker. 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 He went on to develop worsening shortness of breath, and cough. On 03/01/2020 patient came into the emergency department for evaluation of worsening dyspnea, cough, and hypoxemia. He notices pulse ox dropping down into the low 80s when he was measuring his pulse oximetry at home. He had been taking mrft-fjy-hlscrxk vitamins. His been having on and off fevers. Patient had elevated CRP, LDH and d-dimer, he has a significant leukocytosis related to his history of CLL, chest x-ray showed diffuse infiltrates. Currently on 3 L of oxygen his pulse ox of 94%, and afebrile while in the hospital, he is very short of breath with any exertion, but he sitting up in the chair currently, appears to be in no acute distress, he was started on steroids in the form of Decadron, prophylactic dose Lovenox was a dded, he is on Pepcid, vitamin C, vitamin D, and zinc. We requested that Remdesivir treatment for him which requires further approval. On 03/02/2020 patient seen in follow-up on general medical surgical floor. He is awake and alert, currently remains on 4 L of oxygen his pulse ox 90%, which can probably be weaned down further, still coughing, and his cough is dry, no worsening dyspnea, no fever overnight, no nausea vomiting diarrhea, no complaints of chest discomfort, his Remdesivir was approved by the medical administration and patient was started on it today. We also ordered, serum plasma 2, he received 1 unit so far yesterday. No new labs today, no worsening of his symptoms, we'll obtain a set of inflammatory markers for tomorrow, and follow-up chest x-ray tomorrow. The patient is seen today 03/03/2020 in follow-up on the regular medical floor. He is currently sitting up in a chair at the bedside. Awake and alert in no acute distress. Maintaining O2 saturations in the 90s on 4 L/m per nasal cannula. Chest x-ray shows stable patchy bilateral infiltrates. This is day #2 of his Remdesivir. He has received 1 out of 2 units of convalescent plasma thus far. Continued on dexamethasone, Lovenox, Pepcid, vitamin supplements. Objective - Vital Signs Vital signs: Vital Signs Temp 97.5 F L 03/03/20 10:54 Pulse 73 03/03/20 10:54 Resp 16 03/03/20 12:12 BP 113/73 03/03/20 10:54 Pulse Ox 95 03/03/20 12:12 Intake & Output 03/02/20 03/03/20 03/03/20 18:59 06:59 18:59 Intake Total 250 Balance 250 Weight 122.016 kg Intake: Intake, IV Titration 250 Amount Remdesivir 100 mg In 250 Sodium Chloride 0.9% 250 ml @ 250 mls/hr IVPB DAILY@1000 [facility] Rx#: [id number] Other: # Voids 4 - Exam GENERAL EXAM: Alert, active, pleasant 50-year-old gentleman, on 4 L nasal cannula, comfortable in no apparent distress. HEAD: Normocephalic. EYES: Normal reaction of pupils, equal size. NOSE: Clear with pink turbinates. THROAT: No erythema or exudates. NECK: No masses, no JVD. CHEST: No chest wall deformity. LUNGS: Equal air entry with bibasilar crackles. CVS: S1 and S2 normal with no audible murmur, regular rhythm. ABDOMEN: No hepatosplenomegaly, normal bowel sounds, no guarding or rigidity. SPINE: No scoliosis or deformity SKIN: No rashes CENTRAL NERVOUS SYSTEM: No focal deficits, tone is normal in all 4 extremities. EXTREMITIES: There is no peripheral edema. No clubbing, no cyanosis. Peripheral pulses are intact. - Labs CBC & Chem 7: 03/01/20 07:36 03/01/20 07:27 Labs: Abnormal Lab Results - Last 24 Hours (Table) 03/03/20 Range/Units 06:07 Lactate Dehydrogenase 393 H (120-246) U/L C-Reactive Protein 5.1 H (0.0-0.8) mg/dL Assessment and Plan Assessment: 1 Acute hypoxic respiratory failure related to CoVID 19 pneumonitis, patient t ested positive on 02/20/2020. Receiving Remdesivir and convalescent plasma 2 2 Intermittent fevers, worsening shortness of breath, cough, headaches, sweats and chills, related to the above 3 History of CLL 4 Hypertension 5 Chronic back pain 6 Previous spine surgeries, left total knee arthroplasty, multiple orthopedic surgeries 7 Glaucoma with previous history of eye surgery 8 Former smoker 9 D-dimer elevated at 1.32, related to COVID 19 infection 10 Elevated inflammatory markers including LDH, CRP, and ferritin related to acute CoVID 19 infection Plan: The patient was seen and evaluated by Dr. Nunez Chest x-ray and labs reviewed Continue the current treatment plan Titrate down the FiO2 as Raghavendra es Will continue to follow I, the cosigning physician, performed a history & physical examination of the patient. Lungs sounds with crackles in the bilateral posterior bases. Maintaining good O2 saturations in the 90s on 4 L/m per nasal cannula. I disc ussed the assessment and plan of care with my nurse practitioner, Karin Sosa. I attest to the above note as dictated by her.
[2020-03-03] MEDS: SODIUM CHLORIDE 0.9% 1,000 ML IV SCH (16:59)
[2020-03-04] MEDS: SODIUM CHLORIDE 0.9% 1,000 ML IV SCH ×3 (01:41→22:12)
[2020-03-04] MEDS: guaiFENesin-DM 100-10MG/5ML 10 ML CUP PO PRN ×3 (06:14→23:36)
--- NOTE | 2020-03-04 07:43 | XR ---
EXAMINATION TYPE: XR chest 1V DATE OF EXAM: 03/04/2020 HISTORY: Shortness of breath. COMPARISON: 03/03/2020 TECHNIQUE: Single view of the chest is submitted. FINDINGS: Demonstrated are scattered senescent parenchymal change. System perihilar and upper lobe infiltrates are unchanged relative to the prior study. The heart is stable. Hilar and mediastinal structures are within normal limits. Degenerative changes are seen of the dorsal spine. IMPRESSION: 1. System perihilar and upper lobe infiltrates are unchanged relative to the prior study.
--- NOTE | 2020-03-04 08:25 | P.PN ---
Subjective Patient is admitted for Covid 19. Patient received plasma , patient is also receiving Remdesivir, first dose will be today. Patient is presently on 4 L of oxygen and no fever today not short of breath on 4 L of oxygen. 03/03/2020 Patient blood pressure is bit on the lower side hydrochlorothiazide will be discontinued will cut down the dose of lisinopril patient remains on 4 L of oxygen still feels tired 03/04/2020 Patient blood pressure is pretty good today. Patient also requirements have gone down. Although patient still feels bit tired and fatigued will continue to wean off oxygen. Patient received a second dose of Constitutional: As mentioned above Cardio vascular: denied any chest pain, palpitations Gastrointestinal denied any nausea vomiting Pulmonary: Denied any shortness of breath cough Neurologic denied any new focal deficits All inpatient medications were reviewed and appropriate changes in these medications as dictated in the interval history and assessment and plan. Objective - Vital Signs Vital signs: Vital Signs Temp 97.6 F 03/04/20 06:00 Pulse 78 03/04/20 06:00 Resp 16 03/04/20 06:00 BP 131/83 03/04/20 06:00 Pulse Ox 97 03/04/20 06:00 Intake & Output 03/03/20 03/04/20 03/04/20 18:59 06:59 18:59 Intake Total 1141 Output Total 6 Balance -6 1141 Intake: Intake, IV Titration 800 Amount Sodium Chloride 0.9% 1, 800 000 ml @ 100 mls/hr IV . Q10H [facility] Rx#:[id number] Blood Product 341 Ffp Convalescent Plasma 341 Cpd Unit [id number] Output: Urine 6 Other: Voiding Method Toilet # Voids 4 - Exam PHYSICAL EXAMINATION: GENERAL: The patient is alert and oriented x3, not in any acute distress. Well developed, well nourished. HEENT: Pupils are round and equally reacting to light. EOMI. No scleral icterus. No conjunctival pallor. Normocephalic, atraumatic. No pharyngeal erythema. No thyromegaly. CARDIOVASCULAR: S1 and S2 present. No murmurs, rubs, or gallops. PULMONARY: Chest is clear to auscultation, no wheezing or crackles. ABDOMEN: Soft, nontender, nondistended, normoactive bowel sounds. No palpable organomegaly. MUSCULOSKELETAL: No joint swelling or deformity. EXTREMITIES: No cyanosis, clubbing, or pedal edema. NEUROLOGICAL: Gross neurological examination did not reveal any focal deficits. SKIN: No rashes. - Labs CBC & Chem 7: 03/01/20 07:36 03/01/20 07:27 Labs: Abnormal Lab Results - Last 24 Hours (Table) 03/03/20 03/04/20 Range/Units 06:07 06:03 D-Dimer 0.75 H (<0.60) mg/L FEU Lactate Dehydrogenase 393 H (120-246) U/L C-Reactive Protein 5.1 H (0.0-0.8) mg/dL Assessment and Plan Plan: - acute hypoxic respiratory failure: Secondary to covid 19. Patientis on Remdesivir as well by pulmonology and patient was started on zinc. Lovenox. Continued respiratory support presently untreated surprising closely monitored. He received convolscant plasmaX2 -Hypertension patient is on JUAN J inhibitor and hydrochlorothiazide was discontinued -History of chronic lymphocytic leukemia which is being monitored patient does have lymphadenopathy in the cervical area which is chronic which was seen on the computed tomography scan. -Rule out pulmonary embolism -Chronic low back pain -DVT prophylaxis with Lovenox
[2020-03-04] MEDS: ALBUTEROL HFA INHALER INHALATION PRN ×3 (09:20→19:11)
[2020-03-04] MEDS: ENOXAPARIN 40 MG/0.4 ML SYRINGE SQ SCH (09:35)
[2020-03-04] MEDS: MORPHINE SULFATE ER 30 MG TABLET PO SCH ×2 (09:36→21:40)
[2020-03-04] MEDS: dexAMETHasone 2 MG TAB PO SCH (09:36)
[2020-03-04] MEDS: CHOLECALCIFEROL 400 UNIT TAB PO SCH (09:36)
[2020-03-04] MEDS: ASCORBIC ACID 500 MG TAB PO SCH (09:37)
[2020-03-04] MEDS: FAMOTIDINE 20 MG TAB PO SCH ×2 (09:37→21:40)
[2020-03-04] MEDS: REMDESIVIR 100 MG in SODIUM CHLORIDE 0.9% 250 ML IVPB SCH (09:37)
[2020-03-04] MEDS: lisinopriL 20 MG TAB PO SCH (09:37)
[2020-03-04] MEDS: ZINC SULFATE 220 MG CAP PO SCH (09:43)
[2020-03-04 13:17] LABS: C Reactive Protein 2.4 mg/dL (0.0-0.8); Ferritin 761.3 ng/mL (22.0-322.0)
--- NOTE | 2020-03-04 16:06 | P.PN ---
Subjective Progress Note Date: 03/04/20 Principal diagnosis: CoVID 19 pneumonia A 50-year-old white male patient of Dr. Twila Sanders, with past medical history of CLL, currently not on any treatment, hypertension, osteoarthritis, previous history of back surgeries, left knee surgery, eye surgery, patient is a former smoker. 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 He went on to develop worsening shortness of breath, and cough. On 03/01/2020 patient came into the emergency department for evaluation of worsening dyspnea, cough, and hypoxemia. He notices pulse ox dropping down into the low 80s when he was measuring his pulse oximetry at home. He had been taking eflv-twf-ivcdunx vitamins. His been having on and off fevers. Patient had elevated CRP, LDH and d-dimer, he has a significant leukocytosis related to his history of CLL, chest x-ray showed diffuse infiltrates. Currently on 3 L of oxygen his pulse ox of 94%, and afebrile while in the hospital, he is very short of breath with any exertion, but he sitting up in the chair currently, appears to be in no acute distress, he was started on steroids in the form of Decadron, prophylactic dose Lovenox was a dded, he is on Pepcid, vitamin C, vitamin D, and zinc. We requested that Remdesivir treatment for him which requires further approval. On 03/02/2020 patient seen in follow-up on general medical surgical floor. He is awake and alert, currently remains on 4 L of oxygen his pulse ox 90%, which can probably be weaned down further, still coughing, and his cough is dry, no worsening dyspnea, no fever overnight, no nausea vomiting diarrhea, no complaints of chest discomfort, his Remdesivir was approved by the medical administration and patient was started on it today. We also ordered, serum plasma 2, he received 1 unit so far yesterday. No new labs today, no worsening of his symptoms, we'll obtain a set of inflammatory markers for tomorrow, and follow-up chest x-ray tomorrow. The patient is seen today 03/03/2020 in follow-up on the regular medical floor. He is currently sitting up in a chair at the bedside. Awake and alert in no acute distress. Maintaining O2 saturations in the 90s on 4 L/m per nasal cannula. Chest x-ray shows stable patchy bilateral infiltrates. This is day #2 of his Remdesivir. He has received 1 out of 2 units of convalescent plasma thus far. Continued on dexamethasone, Lovenox, Pepcid, vitamin supplements. The patient is seen today 03/04/2020 in follow-up on the regular medical floor. He is currently awake and alert in no acute distress. Sitting up in chair at the bedside. Denies any worsening shortness of breath. Continues with dry nonproductive cough. No fever chills. 18 good O2 saturations in the upper 90s on 2 L/m per nasal cannula. He has received 2 units of convalescent plasma. This is day #3 of his Remdesivir. D-dimer 0.75. Ferritin 761. LDH 362. C- reactive protein 2.4. Continued on dexamethasone, Lovenox, Pepcid, vitamin s upplements. Objective - Vital Signs Vital signs: Vital Signs Temp 97.7 F 03/04/20 14:00 Pulse 70 03/04/20 14:00 Resp 16 03/04/20 14:00 BP 113/72 03/04/20 14:00 Pulse Ox 97 03/04/20 14:00 Intake & Output 03/03/20 03/04/20 03/04/20 18:59 06:59 18:59 Intake Total 1141 Output Total 6 Balance -6 1141 Intake: Intake, IV Titration 800 Amount Sodium Chloride 0.9% 1, 800 000 ml @ 100 mls/hr IV . Q10H [facility] Rx#:[id number] Blood Product 341 Ffp Convalescent Plasma 341 Cpd Unit [id number] Output: Urine 6 Other: Voiding Method Toilet # Voids 4 - Exam GENERAL EXAM: Alert, active, pleasant 50-year-old gentleman, on 2 L nasal cannula, comfortable in no apparent distress. HEAD: Normocephalic. EYES: Normal reaction of pupils, equal size. NOSE: Clear with pink turbinates. THROAT: No erythema or exudates. NECK: No masses, no JVD. CHEST: No chest wall deformity. LUNGS: Equal air entry with bibasilar crackles. CVS: S1 and S2 normal with no audible murmur, regular rhythm. ABDOMEN: No hepatosplenomegaly, normal bowel sounds, no guarding or rigidity. SPINE: No scoliosis or deformity SKIN: No rashes CENTRAL NERVOUS SYSTEM: No focal deficits, tone is normal in all 4 extremities. EXTREMITIES: There is no peripheral edema. No clubbing, no cyanosis. Peripheral pulses are intact. - Labs CBC & Chem 7: 03/01/20 07:36 03/01/20 07:27 Labs: Abnormal Lab Results - Last 24 Hours (Table) 03/04/20 03/04/20 Range/Units 06:03 06:03 D-Dimer 0.75 H (<0.60) mg/L FEU Ferritin 761.3 H (22.0-322.0) ng/mL Lactate Dehydrogenase 362 H (120-246) U/L C-Reactive Protein 2.4 H (0.0-0.8) mg/dL Assessment and Plan Assessment: 1 Acute hypoxic respiratory failure related to CoVID 19 pneumonitis, patient tested positive on 02/20/2020. Receiving Remdesivir, day #3 and convalescent plasma 2 2 Intermittent fevers, worsening shortness of breath, cough, headaches, sweats and chills, related to the above 3 History of CLL 4 Hypertension 5 Chronic back pain 6 Previous spine surgeries, left total knee arthroplasty, multiple orthopedic surgeries 7 Glaucoma with previous history of eye surgery 8 Former smoker 9 D-dimer elevated at 1.32, related to COVID 19 infection 10 Elevated inflammatory markers including LDH, CRP, and ferritin related to acute CoVID 19 infection Plan: The patient was seen and evaluated by Dr. Nunez Continue the current treatment plan Titrate down the FiO2 as tolerated Increase his activity as tolerated Will continue to follow I, the cosigning physician, performed a history & physical examination of the patient. Lungs sounds with crackles in the bilateral posterior bases. Maintaining good O2 saturations in the 90s on 2 L/m per nasal cannula. I discussed the assessment and plan of care with my nurse practitioner, Karin Sosa. I attest to the above note as dictated by her.
[2020-03-05 06:54] LABS: HCT 38.2 % (39.0-53.0); HGB 12.6 gm/dL (13.0-17.5); MCHC 32.9 g/dL (31.0-37.0); MCV 97.2 fL (80.0-100.0); Mean Platelet Volume 7.4; Platelet Count 364 k/uL (150-450); RBC 3.93 m/uL (4.30-5.90); RDW 13.5 % (11.5-15.5)
[2020-03-05 06:55] LABS: WBC 89.8 k/uL (3.8-10.6)
[2020-03-05] MEDS: MORPHINE SULFATE ER 30 MG TABLET PO SCH ×2 (08:31→20:24)
[2020-03-05] MEDS: ENOXAPARIN 40 MG/0.4 ML SYRINGE SQ SCH (08:31)
[2020-03-05] MEDS: ZINC SULFATE 220 MG CAP PO SCH (08:32)
[2020-03-05] MEDS: dexAMETHasone 2 MG TAB PO SCH (08:32)
[2020-03-05] MEDS: CHOLECALCIFEROL 400 UNIT TAB PO SCH (08:32)
[2020-03-05] MEDS: lisinopriL 20 MG TAB PO SCH (08:32)
[2020-03-05] MEDS: ASCORBIC ACID 500 MG TAB PO SCH (08:32)
[2020-03-05] MEDS: FAMOTIDINE 20 MG TAB PO SCH ×2 (08:32→20:23)
--- NOTE | 2020-03-05 09:15 | P.PN ---
Subjective Patient is admitted for Covid 19. Patient received plasma , patient is also receiving Remdesivir, first dose will be today. Patient is presently on 4 L of oxygen and no fever today not short of breath on 4 L of oxygen. 03/03/2020 Patient blood pressure is bit on the lower side hydrochlorothiazide will be discontinued will cut down the dose of lisinopril patient remains on 4 L of oxygen still feels tired 03/04/2020 Patient blood pressure is pretty good today. Patient also requirements have gone down. Although patient still feels bit tired and fatigued will continue to wean off oxygen. Patient received a second dose of plasma 03/05/2020 Patient feels really rundown although requiring only 2 L of oxygen patient white blood cell count did go up. Constitutional: As mentioned above Cardio vascular: denied any chest pain, palpitations Gastrointestinal denied any nausea vomiting Pulmonary: Denied any shortness of breath cough Neurologic denied any new focal deficits All inpatient medications were reviewed and appropriate changes in these medications as dictated in the interval history and assessment and plan. Objective - Vital Signs Vital signs: Vital Signs Temp 97.7 F 03/05/20 05:27 Pulse 77 03/05/20 07:55 Resp 15 03/05/20 07:55 BP 145/81 03/05/20 05:27 Pulse Ox 97 03/05/20 05:27 Intake & Output 03/04/20 03/05/20 03/05/20 18:59 06:59 18:59 Intake Total 1850 Balance 1850 Intake: Intake, IV Titration 1250 Amount Remdesivir 100 mg In 250 Sodium Chloride 0.9% 250 ml @ 250 mls/hr IVPB DAILY@1000 [facility] Rx#: [id number] Sodium Chloride 0.9% 1, 1000 000 ml @ 100 mls/hr IV . Q10H [facility] Rx#:[id number] Oral 600 Other: Voiding Method Toilet Toilet # Voids 4 1 # Bowel Movements 1 - Exam PHYSICAL EXAMINATION: GENERAL: The patient is alert and oriented x3, not in any acute distress. Well developed, well nourished. He appears to be fatigued HEENT: Pupils are round and equally reacting to light. EOMI. No scleral icterus. No conjunctival pallor. Normocephalic, atraumatic. No pharyngeal erythema. No thyromegaly. CARDIOVASCULAR: S1 and S2 present. No murmurs, rubs, or gallops. PULMONARY: Chest is clear to auscultation, no wheezing or crackles. ABDOMEN: Soft, nontender, nondistended, normoactive bowel sounds. No palpable organomegaly. MUSCULOSKELETAL: No joint swelling or deformity. EXTREMITIES: No cyanosis, clubbing, or pedal edema. NEUROLOGICAL: Gross neurological examination did not reveal any focal deficits. SKIN: No rashes. - Labs CBC & Chem 7: 03/05/20 06:08 03/01/20 07:27 Labs: Abnormal Lab Results - Last 24 Hours (Table) 03/04/20 03/05/20 Range/Units 06:03 06:08 WBC 89.8 H* (3.8-10.6) k/uL RBC 3.93 L (4.30-5.90) m/uL Hgb 12.6 L (13.0-17.5) gm/dL Hct 38.2 L (39.0-53.0) % Ferritin 761.3 H (22.0-322.0) ng/mL Lactate Dehydrogenase 362 H (120-246) U/L C-Reactive Protein 2.4 H (0.0-0.8) mg/dL Assessment and Plan Plan: - acute hypoxic respiratory failure: Secondary to covid 19. Patientis on Remdesivir as well by pulmonology and patient was started on zinc. Lovenox. Continued respiratory support presently untreated surprising closely monitored. He received convolscant plasmaX2. Patient is presently on 2 L of oxygen -Hypertension patient is on JUAN J inhibitor and hydrochlorothiazide was discontinued she is fairly well controlled upon discharge she may need hydrochlorothiazide. -History of chronic lymphocytic leukemia which is being monitored patient does have lymphadenopathy in the cervical area which is chronic which was seen on the computed tomography scan. -Rule out pulmonary embolism -Chronic low back pain -DVT prophylaxis with Lovenox
[2020-03-05] MEDS: ALBUTEROL HFA INHALER INHALATION PRN ×3 (09:22→19:20)
[2020-03-05] MEDS: guaiFENesin-DM 100-10MG/5ML 10 ML CUP PO PRN ×2 (10:03→22:29)
[2020-03-05] MEDS: REMDESIVIR 100 MG in SODIUM CHLORIDE 0.9% 250 ML IVPB SCH (10:03)
[2020-03-05 11:03] LABS: African American GFR (CKD) 113.4 (60.0-200.0); Anion Gap 6.2 mmol/L (4.00-12.00); BUN/Creat Ratio 24.44 Ratio (12.00-20.00); Calcium 8.6 mg/dL (8.7-10.3); Carbon Dioxide 23.8 mmol/L (21.6-31.8); Non-African American GFR(CKD) 97.9 (60.0-200.0); Potassium 4.4 mmol/L (3.5-5.5)
--- NOTE | 2020-03-05 15:12 | P.PN ---
Subjective Progress Note Date: 03/05/20 Principal diagnosis: Dyspnea, hypoxemia, pneumonia, abnormal chest x-ray A 50-year-old white male patient of Dr. Twila Sanders, with past medical history of CLL, currently not on any treatment, hypertension, osteoarthritis, previous history of back surgeries, left knee surgery, eye surgery, patient is a former smoker. 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 He went on to develop worsening shortness of breath, and cough. On 03/01/2020 patient came into the emergency department for evaluation of worsening dyspnea, cough, and hypoxemia. He notices pulse ox dropping down into the low 80s when he was measuring his pulse oximetry at home. He had been taking [id number] vitamins. His been having on and off fevers. Patient had elevated CRP, LDH and d-dimer, he has a significant leukocytosis related to his history of CLL, chest x-ray showed diffuse infiltrates. Currently on 3 L of oxygen his pulse ox of 94%, and afebri le while in the hospital, he is very short of breath with any exertion, but he sitting up in the chair currently, appears to be in no acute distress, he was started on steroids in the form of Decadron, prophylactic dose Lovenox was added, he is on Pepcid, vitamin C, vitamin D, and zinc. We requested that Remdesivir treatment for him which requires further approval. On 03/02/2020 patient seen in follow-up on general medical surgical floor. He is awake and alert, currently remains on 4 L of oxygen his pulse ox 90%, which can probably be weaned down further, still coughing, and his cough is dry, no worsening dyspnea, no fever overnight, no nausea vomiting diarrhea, no complaints of chest discomfort, his Remdesivir was approved by the medical administration and patient was started on it today. We also ordered, serum plasma 2, he received 1 unit so far yesterday. No new labs today, no worsening of his symptoms, we'll obtain a set of inflammatory markers for tomorrow, and follow-up chest x-ray tomorrow. On 03/05/2020 patient seen in follow-up on the general medical surgical floor, h e is feeling better, he is sitting up in the chair, and 2 L of oxygen. Pulse ox is 99%, his been afebrile, his had no acute events overnight, no compressive chest pain, no worsening dyspnea, still feeling fatigued, and expressing concern about his blood cell count going up to 89.8, his hemoglobin is 12.6, his electrolytes and renal profile were within normal limits, his been afebrile, his ferritin level is trending down, down to 761 on yesterday's labs, down from 2345 on admission, his LDH has significantly improved, and is down to 362 from 1552, and his CRP is 2.4 down from 293 and admission, his last pro-calcitonin level was 0.32. Patient will finish his Remdesivir treatment tomorrow, he status post transfusion with 2 units, serum plasma, she remains on prophylactic dose of Lovenox, in addition to the vitamins including vitamin C, vitamin D, zinc supplement Objective - Vital Signs Vital signs: Vital Signs Temp 97.8 F 03/05/20 10:00 Pulse 78 03/05/20 10:00 Resp 17 03/05/20 10:00 BP 126/79 03/05/20 10:00 Pulse Ox 99 03/05/20 10:00 Intake & Output 03/04/20 03/05/20 03/05/20 18:59 06:59 18:59 Intake Total 1850 Balance 1850 Intake: Intake, IV Titration 1250 Amount Remdesivir 100 mg In 250 Sodium Chloride 0.9% 250 ml @ 250 mls/hr IVPB DAILY@1000 [facility] Rx#: [id number] Sodium Chloride 0.9% 1, 1000 000 ml @ 100 mls/hr IV . Q10H [facility] Rx#:[id number] Oral 600 Other: Voiding Method Toilet Toilet # Voids 4 1 # Bowel Movements 1 - Exam GENERAL EXAM: Alert, very pleasant, 50-year-old white female, on 2 L of oxygen pulse ox of 99%, comfortable in no apparent distress. HEAD: Normocephalic/atraumatic. EYES: Normal reaction of pupils, equal size. Conjunctiva pink, sclera white. NOSE: Clear with pink turbinates. THROAT: No erythema or exudates. NECK: No masses, no JVD, no thyroid enlargement, no adenopathy. CHEST: No chest wall deformity. Symmetrical expansion. LUNGS: Equal air entry with bibasilar crackles, but no wheeze, rhonchi or dullness. CVS: Regular rate and rhythm, normal S1 and S2, no gallops, no murmurs, no rubs ABDOMEN: Soft, nontender. No hepatosplenomegaly, normal bowel sounds, no guarding or rigidity. EXTREMITIES: No clubbing, no edema, no cyanosis, 2+ pulses and upper and lower extremities. MUSCULOSKELETAL: Muscle strength and tone normal. SPINE: No scoliosis or deformity SKIN: No rashes CENTRAL NERVOUS SYSTEM: Alert and oriented -3. No focal deficits, tone is normal in all 4 extremities. PSYCHIATRIC: Alert and oriented -3. Appropriate affect. Intact judgment and insight. - Labs CBC & Chem 7: 03/05/20 06:08 03/05/20 06:08 Labs: Abnormal Lab Results - Last 24 Hours (Table) 03/05/20 03/05/20 Range/Units 06:08 06:08 WBC 89.8 H* (3.8-10.6) k/uL RBC 3.93 L (4.30-5.90) m/uL Hgb 12.6 L (13.0-17.5) gm/dL Hct 38.2 L (39.0-53.0) % BUN/Creatinine Ratio 24.44 H (12.00-20.00) Ratio Calcium 8.6 L (8.7-10.3) mg/dL Assessment and Plan Plan: Assessment: #1. Acute hypoxic respiratory failure related to quit 19 pneumonitis, patient tested positive on 02/20/2020 #2. Intermittent fevers, worsening shortness of breath, cough, headaches, sweats and chills, related to the above #3. History of CLL #4. Hypertension #5. Chronic back pain #6. Previous spine surgeries, left total knee arthroplasty, multiple orthopedic surgeries #7. Glaucoma with previous history of eye surgery #8. Former smoker #9. D-dimer elevated at 1.32, related to COVID 19 infection #10. Elevated inflammatory markers including LDH, CRP, and ferritin related to acute quit 19 infection Plan: Continue current medical treatment, today is day 4 of Remdesivir, he status post transfusion with 2 units of IV immunoglobulin, vital signs have been stable, his been afebrile, weaning FiO2, follow-up chest x-ray in the morning, follow-up long-term markers and a d-dimer in the morning, anticipate discharge home tomorrow if remains stable I performed a history & physical examination of the patient and discussed their management with my nurse practitioner, Avril Richter. I reviewed the nurse practitioner's note and agree with the documented findings and plan of care. Lung sounds are positive for diminished breath sounds The findings and the impression was discussed with the patient. I attest to the documentation by the nurse practitioner. Time with Patient: Less than 30
[2020-03-05] MEDS: SODIUM CHLORIDE 0.9% 1,000 ML IV SCH (20:25)
[2020-03-06] MEDS: SODIUM CHLORIDE 0.9% 1,000 ML IV SCH (04:22)
[2020-03-06] MEDS: MORPHINE SULFATE ER 30 MG TABLET PO SCH (07:29)
[2020-03-06] MEDS: FAMOTIDINE 20 MG TAB PO SCH (07:29)
[2020-03-06] MEDS: ZINC SULFATE 220 MG CAP PO SCH (07:29)
[2020-03-06] MEDS: lisinopriL 20 MG TAB PO SCH (07:29)
[2020-03-06] MEDS: dexAMETHasone 2 MG TAB PO SCH (07:29)
[2020-03-06] MEDS: ENOXAPARIN 40 MG/0.4 ML SYRINGE SQ SCH (07:29)
[2020-03-06] MEDS: ASCORBIC ACID 500 MG TAB PO SCH (07:30)
[2020-03-06] MEDS: CHOLECALCIFEROL 400 UNIT TAB PO SCH (07:30)
--- NOTE | 2020-03-06 07:31 | XR ---
EXAMINATION TYPE: XR chest 1V portable DATE OF EXAM: 03/06/2020 HISTORY: Shortness of breath. COMPARISON: 03/04/2020 TECHNIQUE: Single view of the chest is submitted. FINDINGS: Demonstrated are scattered senescent parenchymal change. Patchy perihilar and upper lobe infiltrates persist. No significant change appreciated. The heart is stable. Hilar and mediastinal structures are within normal limits. Degenerative changes are seen of the dorsal spine. IMPRESSION: 1. Patchy perihilar and upper lobe infiltrates persist. No significant change appreciated.
[2020-03-06] MEDS: ALBUTEROL HFA INHALER INHALATION PRN ×2 (07:41→11:28)
[2020-03-06] MEDS: REMDESIVIR 100 MG in SODIUM CHLORIDE 0.9% 250 ML IVPB SCH (10:06)
[2020-03-06 10:24] VITALS: BP 156/77; PULSE 71; RESP 18; TEMP 97.9
--- NOTE | 2020-03-06 14:53 | P.PN ---
Subjective Progress Note Date: 03/06/20 Principal diagnosis: Dyspnea, hypoxemia, pneumonia, abnormal chest x-ray A 50-year-old white male patient of Dr. Twila Sanders, with past medical history of CLL, currently not on any treatment, hypertension, osteoarthritis, previous history of back surgeries, left knee surgery, eye surgery, patient is a former smoker. 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 He went on to develop worsening shortness of breath, and cough. On 03/01/2020 patient came into the emergency department for evaluation of worsening dyspnea, cough, and hypoxemia. He notices pulse ox dropping down into the low 80s when he was measuring his pulse oximetry at home. He had been taking [id number]-[id number] vitamins. His been having on and off fevers. Patient had elevated CRP, LDH and d-dimer, he has a significant leukocytosis related to his history of CLL, chest x-ray showed diffuse infiltrates. Currently on 3 L of oxygen his pulse ox of 94%, and afebri le while in the hospital, he is very short of breath with any exertion, but he sitting up in the chair currently, appears to be in no acute distress, he was started on steroids in the form of Decadron, prophylactic dose Lovenox was added, he is on Pepcid, vitamin C, vitamin D, and zinc. We requested that Remdesivir treatment for him which requires further approval. On 03/02/2020 patient seen in follow-up on general medical surgical floor. He is awake and alert, currently remains on 4 L of oxygen his pulse ox 90%, which can probably be weaned down further, still coughing, and his cough is dry, no worsening dyspnea, no fever overnight, no nausea vomiting diarrhea, no complaints of chest discomfort, his Remdesivir was approved by the medical administration and patient was started on it today. We also ordered, serum plasma 2, he received 1 unit so far yesterday. No new labs today, no worsening of his symptoms, we'll obtain a set of inflammatory markers for tomorrow, and follow-up chest x-ray tomorrow. On 03/05/2020 patient seen in follow-up on the general medical surgical floor, h e is feeling better, he is sitting up in the chair, and 2 L of oxygen. Pulse ox is 99%, his been afebrile, his had no acute events overnight, no compressive chest pain, no worsening dyspnea, still feeling fatigued, and expressing concern about his blood cell count going up to 89.8, his hemoglobin is 12.6, his electrolytes and renal profile were within normal limits, his been afebrile, his ferritin level is trending down, down to 761 on yesterday's labs, down from 2345 on admission, his LDH has significantly improved, and is down to 362 from 1552, and his CRP is 2.4 down from 293 and admission, his last pro-calcitonin level was 0.32. Patient will finish his Remdesivir treatment tomorrow, he status post transfusion with 2 units, serum plasma, she remains on prophylactic dose of Lovenox, in addition to the vitamins including vitamin C, vitamin D, zinc supplement On 03/06/2020 patient seen in follow-up on general medical floor, room air pulse ox is 97%, breathing comfortably, has had no fever or chills, vital signs have been stable. He status post Remdesivir treatment, and patient did receive steroids in addition to 2 units of convalescent plasma, today's chest x-ray shows patchy perihilar and upper lobe infiltrates with improvement compared to them chest x-ray from 03/04/2020. He is a bit anxious about going home just yet, but clinically his been stable. Today's d-dimer is 0.85, his had no acute events overnight, tolerating oral diet, he's had no nausea vomiting or diarrhea Objective - Vital Signs Vital signs: Vital Signs Temp 97.9 F 03/06/20 10:23 Pulse 71 03/06/20 10:23 Resp 18 03/06/20 10:23 BP 156/77 03/06/20 10:23 Pulse Ox 97 03/06/20 10:23 Intake & Output 03/05/20 03/06/20 03/06/20 18:59 06:59 18:59 Other: Voiding Method Toilet Toilet # Voids 2 2 - Exam GENERAL EXAM: Alert, very pleasant, 50-year-old white female, on 2 L of oxygen pulse ox of 99%, comfortable in no apparent distress. HEAD: Normocephalic/atraumatic. EYES: Normal reaction of pupils, equal size. Conjunctiva pink, sclera white. NOSE: Clear with pink turbinates. THROAT: No erythema or exudates. NECK: No masses, no JVD, no thyroid enlargement, no adenopathy. CHEST: No chest wall deformity. Symmetrical expansion. LUNGS: Equal air entry with bibasilar crackles, but no wheeze, rhonchi or dullness. CVS: Regular rate and rhythm, normal S1 and S2, no gallops, no murmurs, no rubs ABDOMEN: Soft, nontender. No hepatosplenomegaly, normal bowel sounds, no guarding or rigidity. EXTREMITIES: No clubbing, no edema, no cyanosis, 2+ pulses and upper and lower extremities. MUSCULOSKELETAL: Muscle strength and tone normal. SPINE: No scoliosis or deformity SKIN: No rashes CENTRAL NERVOUS SYSTEM: Alert and oriented -3. No focal deficits, tone is normal in all 4 extremities. PSYCHIATRIC: Alert and oriented -3. Appropriate affect. Intact judgment and insight. - Labs CBC & Chem 7: 03/05/20 06:08 03/05/20 06:08 Labs: Abnormal Lab Results - Last 24 Hours (Table) 03/06/20 Range/Units 07:52 D-Dimer 0.85 H (<0.60) mg/L FEU Assessment and Plan Plan: Assessment: #1. Acute hypoxic respiratory failure related to COVID19 pneumonitis, patient tested positive on 02/20/2020, patient has been treated with a course of Remdesivir, 2 units of , less impossible, steroids, and Lovenox #2. Intermittent fevers, worsening shortness of breath, cough, headaches, sweats and chills, related to the above, resolved, vital signs have been stable #3. History of CLL #4. Hypertension #5. Chronic back pain #6. Previous spine surgeries, left total knee arthroplasty, multiple orthopedic surgeries #7. Glaucoma with previous history of eye surgery #8. Former smoker #9. D-dimer elevated at 1.32, related to COVID 19 infection #10. Elevated inflammatory markers including LDH, CRP, and ferritin related to acute quit 19 infection Plan: He has remained stable in last 24 hours, no worsening dyspnea, he is on room air, his chest x-ray shows improvement in the appearance of bilateral infiltrates compared chest x-ray from 2 days ago, no acute events overnight, he is status post Remdesivir treatment, steroids, prophylactic doses of Lovenox, convalescent plasma, he is stable for discharge home from pulmonary perspective on outpatient course of Decadron for a total of 10 days including what the patient received in the hospital. I performed a history & physical examination of the patient and discussed their management with my nurse practitioner, Avril Richter. I reviewed the nurse practitioner's note and agree with the documented findings and plan of care. Lung sounds are positive for diminished breath sounds The findings and the impression was discussed with the patient. I attest to the documentation by the nurse practitioner. Time with Patient: Less than 30
--- NOTE | 2020-03-06 15:14 | P.DS ---
Providers Date of admission: 03/01/20 08:46 Expected date of discharge: 03/06/20 Attending physician: Florencio Drake Consults: 03/01/20 09:00 Consult Physician Urgent Consulting Provider: Lurdes Nunez Consult Reason/Comments: COVID, hypoxia Do you want consulting provider notified?: Yes Primary care physician: Twila Sanders [facility] Course: Final diagnosis -acute hypoxic respiratory failure: Secondary to covid 19 -Hypertension -History of chronic lymphocytic leukemia -Ruled out pulmonary embolism -Chronic low back pain -DVT prophylaxis Discharge disposition Patient is being discharged in a stable condition with guarded prognosis to home. Patient will follow-up with Dr. Sanders in the outpatient setting upon discharge. Patient is to continue with dexamethasone 6 mg for the next 6 days to complete the course. Patient will also follow-up with his oncologist upon discharge. Total time taken is greater than 35 minutes. History of present illness This is a 50-year-old male who was recently admitted with Covid 19. Pulmonary was following. Patient was initiated on Remdesivir and received his last dose today. Patient has also received 2 doses of convalescent plasma. Patient is currently on room air with 97% oxygenation and no reports of worsening shortness of breath. Patient does get mildly winded with exertion. Instructed the patient to continue to increase activity slowly as tolerated and encourage fluids and rest. Patient to continue on quarantine for an additional 7 days until symptom-free for at least 3 days. Patient will need to follow-up with oncologist at [facility] along with primary care provider. Patient's blood pressures were slightly lower and dose of lisinopril was decreased and tolerating well. Hydrochlorothiazide will continue to be held upon discharge until primary care follow-up. Instructed the patient to continue to monitor blood pressure and keep a diary of blood pressure readings for [facility] follow-up. Prescriptions provided for repeat labs in a few days as white blood cell count was trending up and does have a history of CLL .Currently no reports of chest pain, shortness of breath, or palpitations. Patient is afebrile. No reports of nausea or vomiting and patient is tolerating diet. Patient will be discharged home today. On exam vital signs are stable. Temp is 97.9F, pulse is 71, respirations are 18, blood pressure is 156/77, oxygen saturation is 97% on room air. Cardio S1, S2 are muffled. Respiratory system shows diminished breath sounds at the bases with no wheezing or rhonchi noted. Abdomen is soft and nontender. Nervous system shows no focal deficits. Please refer to medication reconciliation sheet for a list of medications. Patient Condition at Discharge: Stable Plan - Discharge Summary Discharge Rx Participant: No New Discharge Prescriptions: New dexAMETHasone [Hexadrol] 6 mg PO DAILY 6 Days #6 tab Zinc Sulfate [Orazinc] 220 mg PO DAILY 30 Days #30 cap guaiFENesin-DM 100-10MG/5ML [Robitussin DM] 10 ml PO Q6H PRN #120 ml PRN Reason: Cough Acetaminophen Tab [Tylenol] 1,000 mg PO Q6HR PRN tab PRN Reason: Fever>101 Albuterol Inhaler [Ventolin Hfa Inhaler] 2 puff INHALATION RT-Q6H PRN 30 Days #1 puff PRN Reason: Shortness Of Breath Or Wheezing Cholecalciferol [Vitamin D3] 400 unit PO DAILY 30 Days #30 tab Continue Quinapril HCl [Accupril] 40 mg PO QAM Morphine Sulfate [Ms Contin] 30 mg PO BID Testosterone Cypionate [Depo-Testosterone] 200 mg IM Q16D Ibuprofen [Motrin] 800 mg PO TID PRN PRN Reason: Pain Ascorbic Acid [Vitamin C] 1,000 mg PO DAILY Cyclobenzaprine [Flexeril] 10 mg PO TID PRN PRN Reason: Spasms Selenium 250 mcg PO DAILY Magnesium Cypionate 400 mg PO DAILY Beta Carotene 3,000 mcg PO DAILY Vitamin D W/ Coconut Oil 125 mcg PO DAILY Lycopene 50 mg PO DAILY Lutein And Zeaxanthin 1 cap PO DAILY Active Hexose Correlated [place] 3,000 mg PO DAILY [place]-3 2,500 mg PO DAILY [place] 500 1,000 mg PO DAILY Vitamin E (Dl,Tocopheryl Acet) [Vitamin E] 400 unit PO DAILY Colostrum 650 mg PO DAILY Alpha Lipoic Acid 600 mg PO DAILY Egcg 3,900 mg PO DAILY Arteminisin 200 mg PO DAILY Triamcinolone 0.1% Cream [Kenalog 0.1% Cream] 1 applic TOPICAL BID PRN PRN Reason: Rash Reishi Mushroom 900 mg PO DAILY Inositol Hexaphoshpate Ip6 4,000 mg PO DAILY Chaga Mushroom 1,000 mg PO DAILY oxyCODONE HCL [oxyCODONE HCL (IR)] 10 mg PO BID PRN PRN Reason: Pain Discontinued hydroCHLOROthiazide [Hydrodiuril] 25 mg PO QAM Discharge Medication List Morphine Sulfate [Ms Contin] 30 mg PO BID 01/25/16 [History] Quinapril HCl [Accupril] 40 mg PO QAM 01/25/16 [History] Testosterone Cypionate [Depo-Testosterone] 200 mg IM Q16D 12/18/17 [History] Ibuprofen [Motrin] 800 mg PO TID PRN 01/22/18 [History] Ascorbic Acid [Vitamin C] 1,000 mg PO DAILY 10/21/18 [History] Cyclobenzaprine [Flexeril] 10 mg PO TID PRN 01/31/19 [History] Active Hexose Correlated [place] 3,000 mg PO DAILY 03/01/20 [History] Alpha Lipoic Acid 600 mg PO DAILY 03/01/20 [History] Arteminisin 200 mg PO DAILY 03/01/20 [History] Beta Carotene 3,000 mcg PO DAILY 03/01/20 [History] Chaga Mushroom 1,000 mg PO DAILY 03/01/20 [History] Colostrum 650 mg PO DAILY 03/01/20 [History] [place] 500 1,000 mg PO DAILY 03/01/20 [History] Egcg 3,900 mg PO DAILY 03/01/20 [History] Inositol Hexaphoshpate Ip6 4,000 mg PO DAILY 03/01/20 [History] Lutein And Zeaxanthin 1 cap PO DAILY 03/01/20 [History] Lycopene 50 mg PO DAILY 03/01/20 [History] Magnesium Cypionate 400 mg PO DAILY 03/01/20 [History] [place]-3 2,500 mg PO DAILY 03/01/20 [History] Reishi Mushroom 900 mg PO DAILY 03/01/20 [History] Selenium 250 mcg PO DAILY 03/01/20 [History] Triamcinolone 0.1% Cream [Kenalog 0.1% Cream] 1 applic TOPICAL BID PRN 03/01/20 [History] Vitamin D W/ Coconut Oil 125 mcg PO DAILY 03/01/20 [History] Vitamin E (Dl,Tocopheryl Acet) [Vitamin E] 400 unit PO DAILY 03/01/20 [History] oxyCODONE HCL [oxyCODONE HCL (IR)] 10 mg PO BID PRN 03/01/20 [History] Acetaminophen Tab [Tylenol] 1,000 mg PO Q6HR PRN tab 03/06/20 [Rx] Albuterol Inhaler [Ventolin Hfa Inhaler] 2 puff INHALATION RT-Q6H PRN 30 Days #1 puff 03/06/20 [Rx] Cholecalciferol [Vitamin D3] 400 unit PO DAILY 30 Days #30 tab 03/06/20 [Rx] Zinc Sulfate [Orazinc] 220 mg PO DAILY 30 Days #30 cap 03/06/20 [Rx] dexAMETHasone [Hexadrol] 6 mg PO DAILY 6 Days #6 tab 03/06/20 [Rx] guaiFENesin-DM 100-10MG/5ML [Robitussin DM] 10 ml PO Q6H PRN #120 ml 03/06/20 [Rx] Follow up Appointment(s)/Referral(s): Twila Sanders MD [Primary Care Provider] - 03/21/20 5:15 pm (if still having symptoms please call office prior to visit) Ambulatory/Diagnostic Orders: Basic Metabolic Panel [LAB.AMB] Time Frame: 3 Days, Location: None Selected Complete Blood Count w/diff [LAB.AMB] Time Frame: 3 Days, Location: None Selected Patient Instructions/Handouts: Viral Pneumonia (DC), Hypoxia (GEN) Activity/Diet/Wound Care/Special Instructions: Pulmonary to clear/Dr. Drake to see prior to discharge Activity Limited until follow-up Follow up with primary care provider upon discharge Continue with with oncologist in the outpatient setting Continue with dexamethasone 6 mg for the next 6 days to complete the course Continue with quarantine for an additional week and at least 3 days of symptom free Encourage fluids and rest Continue current diet Continue to hold hydrochlorothiazide until primary care follow-up Discharge Disposition: HOME SELF-CARE
[2020-03-06 19:24] LABS: C Reactive Protein 0.9 mg/dL (0.0-0.8)
== END 2020-03-06 14:08 | disposition home or self-care (01) | DRG 177 ==
LOC: EC 06:57 → 6NMEDSUR 08:46 → 4SSUR 10:04
PROVIDERS: ADMIT Internal Medicine; ATTEND Internal Medicine
PROC: XW13325 Transfusion of Convalescent Plasma (Nonautologous) into Peripheral Vein, Percutaneous Approach, New Technology Group 5 (ICD-10-PCS; principal; 2020-03-02)
PROC: XW033E5 Introduction of Remdesivir Anti-infective into Peripheral Vein, Percutaneous Approach, New Technology Group 5 (ICD-10-PCS; principal; 2020-03-02)
DX: U07.1 COVID-19 (principal); J12.89 Other viral pneumonia; J96.01 Acute respiratory failure with hypoxia; C91.10 Chronic lymphocytic leukemia of B-cell type not having achieved remission; G89.29 Other chronic pain; R79.82 Elevated C-reactive protein (CRP); I10 Essential (primary) hypertension; M19.90 Unspecified osteoarthritis, unspecified site; Z96.652 Presence of left artificial knee joint; H40.9 Unspecified glaucoma; Z98.890 Other specified postprocedural states; Z88.2 Allergy status to sulfonamides; Z88.8 Allergy status to other drugs, medicaments and biological substances; Z79.899 Other long term (current) drug therapy; Z87.891 Personal history of nicotine dependence; Z80.1 Family history of malignant neoplasm of trachea, bronchus and lung; Z88.5 Allergy status to narcotic agent; Z82.3 Family history of stroke; Z87.11 Personal history of peptic ulcer disease
CPT/HCPCS: 36415; 71045; 71046; 71275; 80048; 80053; 82728; 83605; 83615; 83735; 84145; 85025; 85027; 85379; 85610; 85730; 86140; 86850; 86900; 86901; 93005; 94640; 96374; 96375; 99285

== ENCOUNTER → 2020-03-07 | Outpatient (CLI) | payer MEDICAID ==
[2020-03-07 09:27] LABS: HCT 44.2 % (39.0-53.0); HGB 14.2 gm/dL (13.0-17.5); MCH 31.5 pg (25.0-35.0); MCHC 32.2 g/dL (31.0-37.0); MCV 97.9 fL (80.0-100.0); Mean Platelet Volume 7.7; Platelet Count 451 k/uL (150-450); RBC 4.51 m/uL (4.30-5.90); RDW 14.3 % (11.5-15.5)
[2020-03-07 09:56] LABS: Lymphocytes # (M) 120.96 k/uL (1.0-4.8); Neutrophils # (M) 5.04 k/uL (1.3-7.7); Neutrophils % (M) 4 %; Nucleated Red Blood Cells 0 /100 WBC (0-0); Poikilocytosis (M) Present; Total Cells Counted 100
[2020-03-07 15:11] LABS: African American GFR (CKD) 113.4 (60.0-200.0); Anion Gap 8.9 mmol/L (4.00-12.00); BUN/Creat Ratio 34.44 Ratio (12.00-20.00); Calcium 9.3 mg/dL (8.7-10.3); Carbon Dioxide 24.1 mmol/L (21.6-31.8); Non-African American GFR(CKD) 97.9 (60.0-200.0); Potassium 4.8 mmol/L (3.5-5.5)
== END | disposition home or self-care (01) ==
LOC: LABWHC1 08:15
PROVIDERS: ATTEND Registered Nurse
DX: U07.1 COVID-19 (principal); C91.10 Chronic lymphocytic leukemia of B-cell type not having achieved remission
CPT/HCPCS: 36415; 80048; 85025

== ENCOUNTER → 2020-04-02 | Outpatient (CLI) | payer MEDICAID ==
--- NOTE | 2020-04-02 08:42 | XR ---
EXAMINATION TYPE: XR chest 2V DATE OF EXAM: 04/02/2020 COMPARISON: Chest x-ray March 06, 2020 HISTORY: Covid 19 positive March 04 study TECHNIQUE: Frontal and lateral views of the chest are obtained. FINDINGS: There is mild chronic parenchymal changes with improved aeration in the periphery of the b ilateral lungs. No new focal airspace opacity, pleural effusion, or pneumothorax seen bilaterally. T he cardiac silhouette size is stable and within normal limits. The osseous structures are intact. IMPRESSION: Interval resolution of bilateral peripheral multifocal acute infiltrates. No new infiltr ates seen.
== END | disposition home or self-care (01) ==
LOC: RADXRMAIN 08:24
PROVIDERS: ATTEND Family Medicine
DX: R91.8 Other nonspecific abnormal finding of lung field (principal)
CPT/HCPCS: 71046

== ENCOUNTER → 2020-05-22 | Outpatient (CLI) | payer MEDICAID ==
[2020-05-22 15:45] LABS: African American GFR (CKD) 80.1 (60.0-200.0); Albumin 4.9 g/dL (3.80-4.90); Albumin/Globulin Ratio 3.06 (1.60-3.17); Anion Gap 7.5 mmol/L (4.00-12.00); BUN/Creat Ratio 16.67 Ratio (12.00-20.00); Calcium 9.7 mg/dL (8.7-10.3); Carbon Dioxide 26.5 mmol/L (21.6-31.8); Globulin 1.6 g/dL (1.6-3.3); Non-African American GFR(CKD) 69.1 (60.0-200.0); Potassium 4.4 mmol/L (3.5-5.5); Total Bilirubin 0.6 mg/dL (0.2-1.2); Total Protein 6.5 g/dL (6.2-8.2)
[2020-05-22 16:42] LABS: Basophils # (M) 0 X 10*3/uL (0.00-0.10); Eosinophils # (M) 1.63 X 10*3/uL (0.04-0.35); HCT 44.9 % (39.6-50.0); HGB 14.9 g/dL (13.0-17.0); Lymphocytes # (M) 49.49 X 10*3/uL (0.90-5.00); MCH 31.4 pg (27.0-32.0); MCHC 33.2 g/dL (32.0-37.0); MCV 94.7 fL (80.0-97.0); Mean Platelet Volume 10.9 fL (9.5-12.2); Monocytes # (M) 1.09 X 10*3/uL (0.20-1.00); Neutrophils # (M) 2.18 X 10*3/uL (2.00-8.90); Neutrophils % (M) 4 %; Platelet Count 152 X 10*3/uL (140-440); RBC 4.74 X 10*6/uL (4.40-5.60); RDW 14.2 % (11.5-14.5); WBC 54.38 X 10*3/uL (4.50-10.00)
== END | disposition home or self-care (01) ==
LOC: LABWHC1 10:31
PROVIDERS: ATTEND Nurse Practitioner Acute Care
DX: C91.10 Chronic lymphocytic leukemia of B-cell type not having achieved remission (principal)
CPT/HCPCS: 36415; 80053; 83615; 85025

== ENCOUNTER 2020-06-17 03:03 | Emergency (ER) | payer MEDICAID, OTHER ==
[2020-06-17 03:11] VITALS: BP 129/85; PULSE 85; RESP 16; TEMP 98.7
--- NOTE | 2020-06-17 05:20 | ED ---
General Adult HPI - General Chief complaint: [place]/Exposure Stated complaint: Exposure, [facility] Time Seen by Provider: 06/17/20 03:47 Source: patient Mode of arrival: ambulatory Limitations: no limitations - Related Data Home Medications Medication Instructions Recorded Confirmed Morphine Sulfate [Ms Contin] 30 mg PO BID 01/25/16 03/01/20 Quinapril HCl [Accupril] 40 mg PO QAM 01/25/16 03/01/20 Testosterone Cypionate 200 mg IM Q16D 12/18/17 03/01/20 [Depo-Testosterone] Ibuprofen [Motrin] 800 mg PO TID PRN 01/22/18 03/01/20 Ascorbic Acid [Vitamin C] 1,000 mg PO DAILY 10/21/18 03/01/20 Cyclobenzaprine [Flexeril] 10 mg PO TID PRN 01/31/19 03/01/20 Active Hexose Correlated [place] 3,000 mg PO DAILY 03/01/20 03/01/20 Alpha Lipoic Acid 600 mg PO DAILY 03/01/20 03/01/20 Arteminisin 200 mg PO DAILY 03/01/20 03/01/20 Beta Carotene 3,000 mcg PO DAILY 03/01/20 03/01/20 Chaga Mushroom 1,000 mg PO DAILY 03/01/20 03/01/20 Colostrum 650 mg PO DAILY 03/01/20 03/01/20 [place] 500 1,000 mg PO DAILY 03/01/20 03/01/20 Egcg 3,900 mg PO DAILY 03/01/20 03/01/20 Inositol Hexaphoshpate Ip6 4,000 mg PO DAILY 03/01/20 03/01/20 Lutein And Zeaxanthin 1 cap PO DAILY 03/01/20 03/01/20 Lycopene 50 mg PO DAILY 03/01/20 03/01/20 Magnesium Cypionate 400 mg PO DAILY 03/01/20 03/01/20 [place]-3 2,500 mg PO DAILY 03/01/20 03/01/20 Reishi Mushroom 900 mg PO DAILY 03/01/20 03/01/20 Selenium 250 mcg PO DAILY 03/01/20 03/01/20 Triamcinolone 0.1% Cream [Kenalog 1 applic TOPICAL BID PRN 03/01/20 03/01/20 0.1% Cream] Vitamin D W/ Coconut Oil 125 mcg PO DAILY 03/01/20 03/01/20 Vitamin E (Dl,Tocopheryl Acet) 400 unit PO DAILY 03/01/20 03/01/20 [Vitamin E] oxyCODONE HCL [oxyCODONE HCL (IR)] 10 mg PO BID PRN 03/01/20 03/01/20 Previous Rx's Medication Instructions Recorded Acetaminophen Tab [Tylenol] 1,000 mg PO Q6HR PRN tab 03/06/20 Albuterol Inhaler [Ventolin Hfa 2 puff INHALATION RT-Q6H PRN 30 03/06/20 Inhaler] Days #1 puff Cholecalciferol [Vitamin D3 (10 400 unit PO DAILY 30 Days #30 tab 03/06/20 Mcg = 400 Iu)] Zinc Sulfate [Orazinc] 220 mg PO DAILY 30 Days #30 cap 03/06/20 dexAMETHasone [Hexadrol] 6 mg PO DAILY 6 Days #6 tab 03/06/20 guaiFENesin-DM 100-10MG/5ML 10 ml PO Q6H PRN #120 ml 03/06/20 [Robitussin DM] Allergies Allergy/AdvReac Type Severity Reaction Status Date / Time meperidine [From Demerol] Allergy Rash/Hives Verified 06/17/20 03:05 sulfamethoxazole Allergy Rash/Hives Verified 06/17/20 03:05 [From Bactrim] trimethoprim [From Bactrim] Allergy Rash/Hives Verified 06/17/20 03:05 atenolol AdvReac severe Verified 06/17/20 03:05 headaches metoprolol AdvReac Lethargic,stomach Verified 06/17/20 03:05 pain topiramate AdvReac severe Verified 06/17/20 03:05 headaches,stomach pain Review of Systems ROS Statement: Those systems with pertinent positive or pertinent negative responses have been documented in the HPI. ROS Other: All systems not noted in ROS Statement are negative. Past Medical History Past Medical History: Blood Disorder, Cancer, Hypertension, Osteoarthritis (OA) Additional Past Medical History / Comment(s): Pt diagnosed with covid 19 on 02/20/20 at [facility]. CLL (CHronic Lymphocytic Leukemia), chronic low back pain-"Have cage around spine from L5-S1.", past gastric ulcer. History of Any Multi-Drug Resistant Organisms: None Reported Past Surgical History: Back Surgery, Joint Replacement, Orthopedic Surgery Additional Past Surgical History / Comment(s): L5-S1 cage, total L knee arthroplasty, multiple ortho procedures d/t work injuries, bilateral eye surgery for increased eye pressure to stop progression to glaucoma, ESS/septoplasty turbinates, lipoma removed from R arm. Past Anesthesia/Blood Transfusion Reactions: No Reported Reaction Additional Past Anesthesia/Blood Transfusion Reaction / Comment(s): Sister PONEduardo. Past Psychological History: No Psychological Hx Reported Smoking Status: Former smoker Past Alcohol Use History: Rare Past Drug Use History: None Reported - Past Family History Mother Family Medical History: Cancer Additional Family Medical History / Comment(s): Mother of lung cancer at the age of 55 yrs. She was a smoker. Father Family Medical History: CVA/TIA Additional Family Medical History / Comment(s): Father is 75 yrs old. General Exam Limitations: no limitations Course Vital Signs 06/17/20 03:06 Temperature 98.7 F Pulse Rate 85 Respiratory 16 Rate Blood Pressure 129/85 O2 Sat by Pulse 96 Oximetry Disposition Clinical Impression: Exposure to body fluid Disposition: HOME SELF-CARE Condition: Good Instructions (If sedation given, give patient instructions): Postexposure Prophylaxis (ED) Is patient prescribed a controlled substance at d/c from ED?: No Referrals: Bob Fenton MD [Primary Care Provider] - 1-2 days
== END 2020-06-17 05:47 | disposition home or self-care (01) ==
LOC: EC 03:03
DX: Z77.21 Contact with and (suspected) exposure to potentially hazardous body fluids (principal); I10 Essential (primary) hypertension; M19.90 Unspecified osteoarthritis, unspecified site; Z79.899 Other long term (current) drug therapy; Z88.5 Allergy status to narcotic agent; Z88.1 Allergy status to other antibiotic agents; Z88.2 Allergy status to sulfonamides; Z88.8 Allergy status to other drugs, medicaments and biological substances; Z96.652 Presence of left artificial knee joint; Z87.891 Personal history of nicotine dependence; Z85.6 Personal history of leukemia; Y99.0 Civilian activity done for income or pay
CPT/HCPCS: 99283

== ENCOUNTER → 2020-06-18 | Outpatient (CLI) | payer MEDICAID ==
[2020-06-18 15:58] LABS: HCT 43.6 % (39.6-50.0); HGB 14.5 g/dL (13.0-17.0); MCH 31.4 pg (27.0-32.0); MCHC 33.3 g/dL (32.0-37.0); MCV 94.4 fL (80.0-97.0); Mean Platelet Volume 11.4 fL (9.5-12.2); Platelet Count 154 X 10*3/uL (140-440); RBC 4.62 X 10*6/uL (4.40-5.60); RDW 14.4 % (11.5-14.5); WBC 54.96 X 10*3/uL (4.50-10.00)
[2020-06-18 16:32] LABS: Prostate Specific Antigen 0.6 ng/mL (0.0-3.5)
== END | disposition home or self-care (01) ==
LOC: LABWHC1 07:34
PROVIDERS: ATTEND Internal Medicine Endocrinology, Diabetes & Metabolism
DX: E29.1 Testicular hypofunction (principal)
CPT/HCPCS: 36415; 84153; 84403; 85027

== ENCOUNTER → 2020-06-27 | Outpatient (CLI) | payer MEDICAID ==
[2020-06-27 07:34] LABS: Appearance,Urine Clear (Clear); Bilirubin,Urine Negative (Negative); Blood,Urine Negative (Negative); Color,Urine Yellow; Glucose,Urine (UA) Negative (Negative); Ketones,Urine Negative (Negative); Leukocyte Esterase,Urine Negative (Negative); Nitrite,Urine Negative (Negative); Protein,Urine Negative (Negative); Specific Gravity,Urine 1.022 (1.001-1.035); Urobilinogen,Urine <2.0 mg/dL (<2.0)
[2020-06-27 12:31] LABS: Albumin 4.4 g/dL (3.80-4.90); Albumin/Globulin Ratio 3.14 (1.60-3.17); Anion Gap 4.8 mmol/L (4.00-12.00); BUN/Creat Ratio 26.36 Ratio (12.00-20.00); Calcium 8.8 mg/dL (8.7-10.3); Carbon Dioxide 27.2 mmol/L (21.6-31.8); Chol/HDL Ratio 5.23; Globulin 1.4 g/dL (1.6-3.3); LDL Cholesterol,Calculated 111.8 mg/dL (0.0-131.0); Non-African American GFR(CKD) 76.8 (60.0-200.0); Potassium 4.4 mmol/L (3.5-5.5); Total Bilirubin 0.5 mg/dL (0.2-1.2); Total Protein 5.8 g/dL (6.2-8.2); VLDL Calculation 19.2 mg/dL (5.00-40.00)
[2020-06-27 12:41] LABS: Prostate Specific Antigen 0.6 ng/mL (0.0-3.5)
[2020-06-27 13:54] LABS: HCT 43.5 % (39.6-50.0); HGB 14.3 g/dL (13.0-17.0); MCH 31.3 pg (27.0-32.0); MCHC 32.9 g/dL (32.0-37.0); MCV 95.2 fL (80.0-97.0); Platelet Count 146 X 10*3/uL (140-440); RBC 4.57 X 10*6/uL (4.40-5.60); RDW 14.6 % (11.5-14.5); WBC 48.82 X 10*3/uL (4.50-10.00)
[2020-06-27 13:55] LABS: Basophils # (M) 0 X 10*3/uL (0.00-0.10); Eosinophils # (M) 0 X 10*3/uL (0.04-0.35); Lymphocytes # (M) 44.91 X 10*3/uL (0.90-5.00); Monocytes # (M) 0 X 10*3/uL (0.20-1.00); Neutrophils # (M) 3.91 X 10*3/uL (2.00-8.90); Neutrophils % (M) 8 %
[2020-06-27 18:42] LABS: Hemoglobin A1C 5.9 % (4.0-6.0)
== END | disposition home or self-care (01) ==
LOC: LABWHC1 06:56
PROVIDERS: ATTEND Internal Medicine
DX: I10 Essential (primary) hypertension (principal); E78.2 Mixed hyperlipidemia; R79.89 Other specified abnormal findings of blood chemistry
CPT/HCPCS: 36415; 80053; 80061; 81003; 83036; 84153; 84403; 84443; 85025

== ENCOUNTER → 2020-08-06 | Outpatient (CLI) | payer MEDICAID ==
[2020-08-06 14:35] LABS: African American GFR (CKD) 99.8 (60.0-200.0); Albumin 4.4 g/dL (3.80-4.90); Albumin/Globulin Ratio 2.59 (1.60-3.17); Anion Gap 3.9 mmol/L (4.00-12.00); Calcium 8.8 mg/dL (8.7-10.3); Carbon Dioxide 28.1 mmol/L (21.6-31.8); Globulin 1.7 g/dL (1.6-3.3); Non-African American GFR(CKD) 86.2 (60.0-200.0); Potassium 4.3 mmol/L (3.5-5.5); Total Bilirubin 0.5 mg/dL (0.2-1.2); Total Protein 6.1 g/dL (6.2-8.2)
[2020-08-06 16:22] LABS: HCT 40.6 % (39.6-50.0); HGB 13.2 g/dL (13.0-17.0); MCH 30.7 pg (27.0-32.0); MCHC 32.5 g/dL (32.0-37.0); MCV 94.4 fL (80.0-97.0); Mean Platelet Volume 11.2 fL (9.5-12.2); Platelet Count 134 X 10*3/uL (140-440); RDW 14.7 % (11.5-14.5); WBC 60.26 X 10*3/uL (4.50-10.00)
[2020-08-06 16:23] LABS: Basophils # (M) 0 X 10*3/uL (0.00-0.10); Lymphocytes # (M) 53.63 X 10*3/uL (0.90-5.00); Monocytes # (M) 1.81 X 10*3/uL (0.20-1.00); Neutrophils # (M) 4.22 X 10*3/uL (2.00-8.90); Neutrophils % (M) 7 %
== END | disposition home or self-care (01) ==
LOC: LABWHC1 07:21
PROVIDERS: ATTEND Nurse Practitioner Acute Care
DX: C91.10 Chronic lymphocytic leukemia of B-cell type not having achieved remission (principal)
CPT/HCPCS: 36415; 80053; 83615; 85025

== ENCOUNTER → 2020-08-15 | Outpatient (CLI) | payer MEDICAID | END | disposition home or self-care (01) | LOC: LABWHC1 07:18 | PROVIDERS: ATTEND Internal Medicine Endocrinology, Diabetes & Metabolism | DX: E29.1 Testicular hypofunction (principal) | CPT/HCPCS: 36415; 84403 ==

== ENCOUNTER → 2020-10-22 | Outpatient (CLI) | payer MEDICAID | END | disposition home or self-care (01) | LOC: LABWHC1 07:20 | PROVIDERS: ATTEND Internal Medicine Endocrinology, Diabetes & Metabolism | DX: E29.1 Testicular hypofunction (principal) | CPT/HCPCS: 36415; 84403 ==

== ENCOUNTER → 2020-10-22 | Outpatient (CLI) | payer MEDICAID ==
[2020-10-22 12:21] LABS: African American GFR (CKD) 80.1 (60.0-200.0); Albumin 4.5 g/dL (3.80-4.90); Albumin/Globulin Ratio 2.25 (1.60-3.17); Anion Gap 5.1 mmol/L (4.00-12.00); BUN/Creat Ratio 16.67 Ratio (12.00-20.00); Calcium 9.1 mg/dL (8.7-10.3); Carbon Dioxide 28.9 mmol/L (21.6-31.8); Non-African American GFR(CKD) 69.1 (60.0-200.0); Potassium 4.7 mmol/L (3.5-5.5); Total Bilirubin 0.6 mg/dL (0.2-1.2); Total Protein 6.5 g/dL (6.2-8.2)
[2020-10-22 12:33] LABS: Basophils # (M) 0 X 10*3/uL (0.00-0.10); Eosinophils # (M) 0 X 10*3/uL (0.04-0.35); HGB 12.5 g/dL (13.0-17.0); Lymphocytes # (M) 62.72 X 10*3/uL (0.90-5.00); MCH 31.1 pg (27.0-32.0); MCHC 32.1 g/dL (32.0-37.0); Monocytes # (M) 0.67 X 10*3/uL (0.20-1.00); Neutrophils # (M) 4.05 X 10*3/uL (2.00-8.90); Neutrophils % (M) 6 %; Platelet Count 130 X 10*3/uL (140-440); RBC 4.02 X 10*6/uL (4.40-5.60); RDW 14.4 % (11.5-14.5); WBC 67.44 X 10*3/uL (4.50-10.00)
== END | disposition home or self-care (01) ==
LOC: LABWHC1 07:21
PROVIDERS: ATTEND Nurse Practitioner Acute Care
DX: C91.10 Chronic lymphocytic leukemia of B-cell type not having achieved remission (principal)
CPT/HCPCS: 36415; 80053; 83615; 85025

== ENCOUNTER → 2020-12-17 | Outpatient (CLI) | payer MEDICAID | END | disposition home or self-care (01) | LOC: LABWHC1 07:09 | PROVIDERS: ATTEND Internal Medicine | DX: U07.1 COVID-19 (principal); C91.10 Chronic lymphocytic leukemia of B-cell type not having achieved remission | CPT/HCPCS: 86769; 36415; C9803 ==

== ENCOUNTER 2020-12-29 07:04 | Emergency (ER) | payer MEDICAID, OTHER ==
[2020-12-29 07:18] VITALS: RESP 18; TEMP 98.3
[2020-12-29] MEDS ORDERED: IBUPROFEN 800 MG TAB PO STA (07:51)
--- NOTE | 2020-12-29 08:04 | ED ---
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 His been complaining of pain to his low back going over to both SI joints. No loss of function to his lower extremities no trouble with urinary or fecal incontinence no loss of sensation. He states his normal pain is around 5- 6/10 and is now a 9/10. No other injuries no other current complaints or modifying factors MD Complaint: back pain, back injury, fall - Related Data Home Medications Medication Instructions Recorded Confirmed Morphine Sulfate [Ms Contin] 30 mg PO BID 01/25/16 03/01/20 Quinapril HCl [Accupril] 40 mg PO QAM 01/25/16 03/01/20 Testosterone Cypionate 200 mg IM Q16D 12/18/17 03/01/20 [Depo-Testosterone] Ibuprofen [Motrin] 800 mg PO TID PRN 01/22/18 03/01/20 Ascorbic Acid [Vitamin C] 1,000 mg PO DAILY 10/21/18 03/01/20 Cyclobenzaprine [Flexeril] 10 mg PO TID PRN 01/31/19 03/01/20 Active Hexose Correlated [place] 3,000 mg PO DAILY 03/01/20 03/01/20 Alpha Lipoic Acid 600 mg PO DAILY 03/01/20 03/01/20 Arteminisin 200 mg PO DAILY 03/01/20 03/01/20 Beta Carotene 3,000 mcg PO DAILY 03/01/20 03/01/20 Chaga Mushroom 1,000 mg PO DAILY 03/01/20 03/01/20 Colostrum 650 mg PO DAILY 03/01/20 03/01/20 [place] 500 1,000 mg PO DAILY 03/01/20 03/01/20 Egcg 3,900 mg PO DAILY 03/01/20 03/01/20 Inositol Hexaphoshpate Ip6 4,000 mg PO DAILY 03/01/20 03/01/20 Lutein And Zeaxanthin 1 cap PO DAILY 03/01/20 03/01/20 Lycopene 50 mg PO DAILY 03/01/20 03/01/20 Magnesium Cypionate 400 mg PO DAILY 03/01/20 03/01/20 [place]-3 2,500 mg PO DAILY 03/01/20 03/01/20 Reishi Mushroom 900 mg PO DAILY 03/01/20 03/01/20 Selenium 250 mcg PO DAILY 03/01/20 03/01/20 Triamcinolone 0.1% Cream [Kenalog 1 applic TOPICAL BID PRN 03/01/20 03/01/20 0.1% Cream] Vitamin D W/ Coconut Oil 125 mcg PO DAILY 03/01/20 03/01/20 Vitamin E (Dl,Tocopheryl Acet) 400 unit PO DAILY 03/01/20 03/01/20 [Vitamin E (400 Iu = 180 mg)] oxyCODONE HCL [oxyCODONE HCL (IR)] 10 mg PO BID PRN 03/01/20 03/01/20 Previous Rx's Medication Instructions Recorded Acetaminophen Tab [Tylenol] 1,000 mg PO Q6HR PRN tab 03/06/20 Albuterol Inhaler [Ventolin Hfa 2 puff INHALATION RT-Q6H PRN 30 03/06/20 Inhaler] Days #1 puff Cholecalciferol [Vitamin D3 (10 400 unit PO DAILY 30 Days #30 tab 03/06/20 Mcg = 400 Iu)] Zinc Sulfate [Orazinc] 220 mg PO DAILY 30 Days #30 cap 03/06/20 dexAMETHasone ORAL [Hexadrol] 6 mg PO DAILY 6 Days #6 tab 03/06/20 guaiFENesin-DM 100-10MG/5ML 10 ml PO Q6H PRN #120 ml 03/06/20 [Robitussin DM] Allergies Allergy/AdvReac Type Severity Reaction Status Date / Time meperidine [From Demerol] Allergy Rash/Hives Verified 12/29/20 07:18 sulfamethoxazole Allergy Rash/Hives Verified 12/29/20 07:18 [From Bactrim] trimethoprim [From Bactrim] Allergy Rash/Hives Verified 12/29/20 07:18 atenolol AdvReac severe Verified 12/29/20 07:18 headaches metoprolol AdvReac Lethargic,stomach Verified 12/29/20 07:18 pain topiramate AdvReac severe Verified 12/29/20 07:18 headaches,stomach pain Review of Systems ROS Statement: Those systems with pertinent positive or pertinent negative responses have been documented in the HPI. ROS Other: All systems not noted in ROS Statement are negative. Past Medical History Past Medical History: Blood Disorder, Cancer, Hypertension, Osteoarthritis (OA) Additional Past Medical History / Comment(s): Pt diagnosed with covid 19 on 02/20/[address] [facility]. CLL (CHronic Lymphocytic Leukemia), chronic low back pain-"Have cage around spine from L5-S1.", past gastric ulcer. anemic History of Any Multi-Drug Resistant Organisms: None Reported Past Surgical History: Back Surgery, Joint Replacement, Orthopedic Surgery Additional Past Surgical History / Comment(s): L5-S1 cage, total L knee arthroplasty, multiple ortho procedures d/t work injuries, bilateral eye surgery for increased eye pressure to stop progression to glaucoma, ESS/septoplasty turbinates, lipoma removed from R arm. Past Anesthesia/Blood Transfusion Reactions: No Reported Reaction Additional Past Anesthesia/Blood Transfusion Reaction / Comment(s): Sister CRISSY. Past Psychological History: No Psychological Hx Reported Smoking Status: Former smoker Past Alcohol Use History: Rare Past Drug Use History: None Reported - Past Family History Mother Family Medical History: Cancer Additional Family Medical History / Comment(s): Mother of lung cancer at the age of 55 yrs. She was a smoker. Father Family Medical History: CVA/TIA Additional Family Medical History / Comment(s): Father is 75 yrs old. General Exam - General Exam Comments Initial Comments: This is a well-developed well-nourished awake alert oriented 3 male Limitations: no limitations General appearance: alert Head exam: Present: atraumatic, normocephalic, normal inspection Eye exam: Present: normal appearance. Absent: scleral icterus, conjunctival injection, periorbital swelling ENT exam: Present: normal exam, mucous membranes moist Neck exam: Present: normal inspection, full ROM. Absent: tenderness, meningismus, lymphadenopathy Respiratory exam: Present: normal lung sounds bilaterally. Absent: respiratory distress, wheezes, rales, rhonchi, stridor Cardiovascular Exam: Present: regular rate, normal rhythm, normal heart sounds. Absent: systolic murmur, diastolic murmur, rubs, gallop, clicks GI/Abdominal exam: Absent: distended, tenderness, guarding, rebound, rigid Rectal exam: Present: deferred Extremities exam: Present: normal inspection, full ROM, normal capillary refill. Absent: tenderness, pedal edema, joint swelling, calf tenderness Back exam: Present: normal inspection, tenderness (Tenderness palpation of the L4 5 S1 paraspinous musculature no definite step-off or crepitation a well- healed surgical scar seen. Some mild discomfort over the SI joints bilaterally. No gluteal tenderness.) Neurological exam: Present: alert, oriented X3, CN II-XII intact Psychiatric exam: Present: normal affect, normal mood Skin exam: Present: warm, dry, intact, normal color. Absent: rash Course Vital Signs 12/29/20 07:15 Temperature 98.3 F Pulse Rate 85 Respiratory 18 Rate Blood Pressure 143/87 O2 Sat by Pulse 97 Oximetry Medical Decision Making - Medical Decision Making I did discuss findings with the patient. Patient will be discharged follow-up spine surgery he may follow up with a surgeon at [place] area he'll be given follow-up locally. He can otherwise return to work - Radiology Data Radiology results: report reviewed (Imaging reviewed please see complete report question small avulsion fracture from L2. The above-mentioned fusions), image reviewed Disposition Clinical Impression: Mechanical back pain, Strain of lumbar region Disposition: HOME SELF-CARE Condition: Good Instructions (If sedation given, give patient instructions): Acute Low Back Pain (ED) Is patient prescribed a controlled substance at d/c from ED?: No Referrals: Bob Fenton MD [Primary Care Provider] - 1-2 days Elliot Murray DO [Doctor of Osteopathic Medicine] - 1-2 days
--- NOTE | 2020-12-29 08:43 | CT ---
EXAMINATION TYPE: CT lumbar spine wo con DATE OF EXAM: 12/29/2020 8:35 AM COMPARISON: None HISTORY: Trauma CT DLP: 1883.8 mGycm Automated exposure control for dose reduction was used. Unenhanced CT of the lumbar spine was performed. Bone and soft tissue window settings are submitted as well as coronal and sagittal reconstructions. There has been laminectomy and posterior metallic and interdisc fusion at the L5-S1 level. The lumbar vertebral segments are normal in height and alignment. There is a tiny calcific density ad jacent to the posterior inferior aspect of L2 which could represent a tiny avulsion fracture. The lum bar vertebral segments are normal in height. There is a slight anterolisthesis of L4 on L5. At the L4-5 level secondary to hypertrophy of the facets and disc bulge there is a probable significa nt stenosis. MRI or post mammogram CT would be useful for further evaluation. IMPRESSION: 1. Postsurgical changes at the L5-S1 level as described above. 2. Suspect tiny avulsion fracture of the inferior posterior corner of L2. 3. Slight anterolisthesis of L4 and L5 with suspected spinal stenosis as described above.
--- NOTE | 2020-12-29 08:45 | CT ---
EXAMINATION TYPE: CT sacrum wo con DATE OF EXAM: 12/29/2020 COMPARISON: None HISTORY: Trauma CT DLP: 1883.8 mGycm Automated exposure control for dose reduction was used. FINDINGS: There are postsurgical changes of posterior metallic fusion and interdisc fusion at the L5-S1 level. There is been a laminectomy at the L5-S1 level as well. The sacrum is intact without evidence of fracture or focal intraosseous abnormality. IMPRESSION: NO EVIDENCE OF ACUTE TRAUMA TO THE SACRUM.
[2020-12-29 09:21] VITALS: BP 129/63; PULSE 79
== END 2020-12-29 09:19 | disposition home or self-care (01) ==
LOC: EC 07:04
DX: S39.012A Strain of muscle, fascia and tendon of lower back, initial encounter (principal); I10 Essential (primary) hypertension; M19.90 Unspecified osteoarthritis, unspecified site; Z86.16 Personal history of COVID-19; Z87.11 Personal history of peptic ulcer disease; Z87.891 Personal history of nicotine dependence; Z79.52 Long term (current) use of systemic steroids; Z79.1 Long term (current) use of non-steroidal anti-inflammatories (NSAID); Z88.1 Allergy status to other antibiotic agents; Z88.2 Allergy status to sulfonamides; Z88.5 Allergy status to narcotic agent; X58.XXXA Exposure to other specified factors, initial encounter
CPT/HCPCS: 72131; 72192; 99283

== ENCOUNTER → 2021-01-10 | Outpatient (CLI) | payer OTHER ==
--- NOTE | 2021-01-10 11:00 | MR ---
EXAMINATION TYPE: MR lumbar spine wo con DATE OF EXAM: 01/10/2021 COMPARISON: CT 12/29/2020 and prior lumbar MRI 01/23/2010 HISTORY: Lumbar Strain TECHNIQUE: Multiplanar, multisequence images of the lumbar spine were acquired without IV contrast. L1-L2: Normal disc appearance without desiccation. No herniation, protrusion or disc bulging. No ca nal stenosis is present. Foramina are patent bilaterally. L2-L3: Posterior broad-based disc bulge effaces the anterior thecal sac. No significant spinal stenos is or foraminal encroachment. L3-L4: Posterior broad-based disc bulge causes minimal anterior mass effect on the thecal sac. There is facet arthropathy with hypertrophy ligamentum flavum. No significant spinal stenosis. No significa nt foraminal encroachment. L4-L5: There is hypertrophic change of the facets causing lateral mass effect on the thecal sac, ther e is transverse narrowing of the thecal sac, axial image #9 and 8. Some encroachment on the lateral r ecesses noted. Circumferential posterior disc bulge is minimally minimal and contacts the anterior th ecal sac. Circumferential extension of this complex combined with the listhesis is noted but no signi ficant foraminal encroachment. L5-S1: There is laminectomy change present. The distal thecal sac shows narrowing, no definite focal mass is present. There are facet arthropathy changes, there may be mass effect on the left S1 nerve r oot, axial image #3. Circumferential extension of endplates and disc complex extends towards the infe rior aspect of the foramina, no significant encroachment suspected. Conus medullaris has a normal appearance. Bone marrow signal is decreased on T1 and T2-weighted seque nces. Patient shows posterior fusion at L5-S1, intervertebral cage, obliteration of the disc space. T here is mild anterolisthesis grade 1 L4-5. Loss of disc height and signal is greatest at L2-3. There is mild multilevel spondylosis present. Retroperitoneal adenopathy is present as is adenopathy along the iliac vasculature as visualized. IMPRESSION: Retroperitoneal adenopathy and findings suggest marrow replacement, correlate for additional underlyi ng medical condition. Postop changes. Facet arthropathy with narrowing of the spinal canal at L4-5, d egenerative disc disease. Correlate for left S1 radiculopathy.
== END | disposition home or self-care (01) ==
LOC: RADMRIMAIN 09:05
PROVIDERS: ATTEND Emergency Medicine
DX: R59.0 Localized enlarged lymph nodes (principal); M51.36 Other intervertebral disc degeneration, lumbar region; M48.061 Spinal stenosis, lumbar region without neurogenic claudication
CPT/HCPCS: 72148

== ENCOUNTER → 2021-02-04 | Outpatient (CLI) | payer MEDICAID | END | disposition home or self-care (01) | LOC: LABWHC1 07:17 | PROVIDERS: ATTEND Internal Medicine Endocrinology, Diabetes & Metabolism | DX: Z53.9 Procedure and treatment not carried out, unspecified reason (principal) ==

== ENCOUNTER → 2021-02-04 | Outpatient (CLI) | payer MEDICAID ==
[2021-02-04 12:44] LABS: Basophils # (M) 0 X 10*3/uL (0.00-0.10); Eosinophils # (M) 1.02 X 10*3/uL (0.04-0.35); HCT 37.3 % (39.6-50.0); Lymphocytes # (M) 95.85 X 10*3/uL (0.90-5.00); MCHC 32.2 g/dL (32.0-37.0); MCV 96.4 fL (80.0-97.0); Mean Platelet Volume 10.4 fL (9.5-12.2); Monocytes # (M) 1.02 X 10*3/uL (0.20-1.00); Neutrophils # (M) 4.08 X 10*3/uL (2.00-8.90); Neutrophils % (M) 4 %; Platelet Count 91 X 10*3/uL (140-440); RBC 3.87 X 10*6/uL (4.40-5.60); RDW 14.6 % (11.5-14.5); Smudge Cells PRESENT; WBC 101.97 X 10*3/uL (4.50-10.00)
[2021-02-04 13:49] LABS: African American GFR (CKD) 80.1 (60.0-200.0); Albumin 4.6 g/dL (3.8-4.9); Albumin/Globulin Ratio 3.07 (1.60-3.17); Anion Gap 10.2 mmol/L (4.00-12.00); BUN/Creat Ratio 15.58 Ratio (12.00-20.00); Blood Urea Nitrogen 18.7 mg/dL (9.0-27.0); Calcium 9.1 mg/dL (8.7-10.3); Carbon Dioxide 25.8 mmol/L (21.6-31.8); Globulin 1.5 g/dL (1.6-3.3); Non-African American GFR(CKD) 69.1 (60.0-200.0); Potassium 4.3 mmol/L (3.5-5.5); Prostate Specific Antigen 1.2 ng/mL (0.00-3.50); Total Bilirubin 0.5 mg/dL (0.30-1.20); Total Protein 6.1 g/dL (6.2-8.2)
== END | disposition home or self-care (01) ==
LOC: LABWHC1 07:25
PROVIDERS: ATTEND Nurse Practitioner Acute Care
DX: C91.10 Chronic lymphocytic leukemia of B-cell type not having achieved remission (principal)
CPT/HCPCS: 36415; 80053; 83615; 84153; 84403; 85025

== ENCOUNTER → 2021-02-11 | Outpatient (CLI) | payer MEDICAID ==
[2021-02-11 11:39] LABS: % Iron Saturation 27.74 (15.00-50.00); African American GFR (CKD) 79.5 (60.0-200.0); Albumin 4.8 g/dL (3.8-4.9); Albumin/Globulin Ratio 3.43 (1.60-3.17); Anion Gap 9.2 mmol/L (10.00-18.00); BUN/Creat Ratio 22.08 Ratio (12.00-20.00); Blood Urea Nitrogen 26.5 mg/dL (9.0-27.0); Calcium 9.5 mg/dL (8.7-10.3); Carbon Dioxide 25.8 mmol/L (20.0-27.5); Folate, Serum 12.8 ng/mL (4.40-31.00); Globulin 1.4 g/dL (1.6-3.3); Non-African American GFR(CKD) 68.6 (60.0-200.0); Potassium 4.4 mmol/L (3.5-5.5); Total Bilirubin 0.4 mg/dL (0.30-1.20); Total Protein 6.2 g/dL (6.2-8.2)
[2021-02-11 12:20] LABS: HCT 36.4 % (39.6-50.0); HGB 11.8 g/dL (13.0-17.0); MCH 30.8 pg (27.0-32.0); MCHC 32.4 g/dL (32.0-37.0); Mean Platelet Volume 10.3 fL (9.5-12.2); Platelet Count 112 X 10*3/uL (140-440); RBC 3.83 X 10*6/uL (4.40-5.60); RDW 14.7 % (11.5-14.5); WBC 110.58 X 10*3/uL (4.50-10.00)
[2021-02-11 12:21] LABS: Basophils # (M) 0 X 10*3/uL (0.00-0.10); Eosinophils # (M) 0 X 10*3/uL (0.04-0.35); Lymphocytes # (M) 103.95 X 10*3/uL (0.90-5.00); Monocytes # (M) 1.11 X 10*3/uL (0.20-1.00); Neutrophils # (M) 5.53 X 10*3/uL (2.00-8.90); Neutrophils % (M) 5 %
== END | disposition home or self-care (01) ==
LOC: LABWHC1 07:24
PROVIDERS: ATTEND Nurse Practitioner Acute Care
DX: C91.10 Chronic lymphocytic leukemia of B-cell type not having achieved remission (principal)
CPT/HCPCS: 36415; 80053; 82607; 82728; 82746; 83540; 83550; 83615; 85025

== ENCOUNTER → 2021-03-18 | Outpatient (CLI) | payer OTHER | END | disposition home or self-care (01) | LOC: LABWHC1 02:50 | PROVIDERS: ATTEND Emergency Medicine | DX: Z20.822 Contact with and (suspected) exposure to COVID-19 (principal) | CPT/HCPCS: 87635 ==

== ENCOUNTER → 2021-06-11 | Outpatient (CLI) | payer MEDICAID ==
[2021-06-11 10:16] LABS: Basophils # (A) 0.03 X 10*3/uL (0.00-0.10); Basophils % (A) 1.3 %; Eosinophils # (A) 0.07 X 10*3/uL (0.04-0.35); HCT 37.5 % (39.6-50.0); HGB 12.2 g/dL (13.0-17.0); Immature Grans, Automated 0.4 %; Lymphocytes # (A) 0.41 X 10*3/uL (0.90-5.00); Lymphocytes % (A) 17.5 %; MCH 30.7 pg (27.0-32.0); MCHC 32.5 g/dL (32.0-37.0); MCV 94.2 fL (80.0-97.0); Mean Platelet Volume 10.4 fL (9.5-12.2); Monocytes # (A) 0.39 X 10*3/uL (0.20-1.00); Monocytes % (A) 16.7 %; NRBC Per 100 WBC 0 /100 WBCS (0.0-0.0); Neutrophils # (A) 1.43 X 10*3/uL (1.80-7.70); Neutrophils % (A) 61.1 %; Platelet Count 141 X 10*3/uL (140-440); RBC 3.98 X 10*6/uL (4.40-5.60); RDW 15.4 % (11.5-14.5); WBC 2.34 X 10*3/uL (4.50-10.00)
[2021-06-11 10:23] LABS: African American GFR (CKD) 99.1 (60.0-200.0); Albumin 4.4 g/dL (3.8-4.9); Albumin/Globulin Ratio 2.1 (1.60-3.17); Anion Gap 9.2 mmol/L (10.00-18.00); BUN/Creat Ratio 19.2 Ratio (12.00-20.00); Blood Urea Nitrogen 19.2 mg/dL (9.0-27.0); Calcium 9.3 mg/dL (8.7-10.3); Carbon Dioxide 23.8 mmol/L (20.0-27.5); Globulin 2.1 g/dL (1.6-3.3); Magnesium 2.4 mg/dL (1.5-2.4); Non-African American GFR(CKD) 85.5 (60.0-200.0); Phosphorus 2.6 mg/dL (2.4-5.1); Potassium 4.8 mmol/L (3.5-5.5); Total Bilirubin 0.7 mg/dL (0.30-1.20); Total Protein 6.5 g/dL (6.2-8.2); Uric Acid 4.5 mg/dL (3.7-8.7)
[2021-06-12 00:04] LABS: Basophils # (A) 0.02 X 10*3/uL (0.00-0.10); Basophils % (A) 0.8 %; Eosinophils # (A) 0.07 X 10*3/uL (0.04-0.35); Eosinophils % (A) 2.6 %; HGB 12.5 g/dL (13.0-17.0); Immature Grans, Automated 0.8 %; Lymphocytes % (A) 18.9 %; MCH 31.1 pg (27.0-32.0); MCHC 32.9 g/dL (32.0-37.0); MCV 94.5 fL (80.0-97.0); Mean Platelet Volume 10.5 fL (9.5-12.2); Monocytes # (A) 0.41 X 10*3/uL (0.20-1.00); Monocytes % (A) 15.5 %; NRBC Per 100 WBC 0 /100 WBCS (0.0-0.0); Neutrophils # (A) 1.63 X 10*3/uL (1.80-7.70); Neutrophils % (A) 61.4 %; Platelet Count 162 X 10*3/uL (140-440); RBC 4.02 X 10*6/uL (4.40-5.60); RDW 15.1 % (11.5-14.5); WBC 2.65 X 10*3/uL (4.50-10.00)
[2021-06-12 02:35] LABS: African American GFR (CKD) 99.1 (60.0-200.0); Albumin 4.8 g/dL (3.8-4.9); Albumin/Globulin Ratio 2.82 (1.60-3.17); Anion Gap 10.1 mmol/L (10.00-18.00); BUN/Creat Ratio 21.1 Ratio (12.00-20.00); Blood Urea Nitrogen 21.1 mg/dL (9.0-27.0); Calcium 9.4 mg/dL (8.7-10.3); Carbon Dioxide 24.9 mmol/L (20.0-27.5); Globulin 1.7 g/dL (1.6-3.3); Magnesium 2.3 mg/dL (1.5-2.4); Non-African American GFR(CKD) 85.5 (60.0-200.0); Phosphorus 3.7 mg/dL (2.4-5.1); Potassium 4.6 mmol/L (3.5-5.5); Total Bilirubin 0.7 mg/dL (0.30-1.20); Total Protein 6.5 g/dL (6.2-8.2); Uric Acid 4.2 mg/dL (3.7-8.7)
== END | disposition home or self-care (01) ==
LOC: LABWHC1 07:04
PROVIDERS: ATTEND Internal Medicine
DX: C91.10 Chronic lymphocytic leukemia of B-cell type not having achieved remission (principal)
CPT/HCPCS: 36415; 80053; 83615; 83735; 84100; 84550; 85025

== ENCOUNTER → 2021-06-12 | Outpatient (CLI) | payer MEDICAID ==
[2021-06-12 14:05] LABS: Basophils # (A) 0.03 X 10*3/uL (0.00-0.10); Eosinophils # (A) 0.07 X 10*3/uL (0.04-0.35); Eosinophils % (A) 2.4 %; HCT 40.8 % (39.6-50.0); HGB 13.4 g/dL (13.0-17.0); Immature Grans, Automated 0.3 %; Lymphocytes # (A) 0.48 X 10*3/uL (0.90-5.00); Lymphocytes % (A) 16.5 %; MCH 30.9 pg (27.0-32.0); MCHC 32.8 g/dL (32.0-37.0); Mean Platelet Volume 10.3 fL (9.5-12.2); Monocytes # (A) 0.41 X 10*3/uL (0.20-1.00); Monocytes % (A) 14.1 %; NRBC Per 100 WBC 0 /100 WBCS (0.0-0.0); Neutrophils # (A) 1.91 X 10*3/uL (1.80-7.70); Neutrophils % (A) 65.7 %; Platelet Count 162 X 10*3/uL (140-440); RBC 4.34 X 10*6/uL (4.40-5.60); RDW 15.2 % (11.5-14.5); WBC 2.91 X 10*3/uL (4.50-10.00)
[2021-06-12 14:31] LABS: African American GFR (CKD) 92.4 (60.0-200.0); Albumin/Globulin Ratio 2.7 (1.60-3.17); Anion Gap 11.8 mmol/L (10.00-18.00); BUN/Creat Ratio 19.81 Ratio (12.00-20.00); Calcium 9.7 mg/dL (8.7-10.3); Carbon Dioxide 25.3 mmol/L (20.0-27.5); Globulin 1.8 g/dL (1.6-3.3); Magnesium 2.4 mg/dL (1.5-2.4); Non-African American GFR(CKD) 79.7 (60.0-200.0); Phosphorus 2.6 mg/dL (2.4-5.1); Potassium 4.7 mmol/L (3.5-5.5); Total Bilirubin 0.9 mg/dL (0.30-1.20); Total Protein 6.8 g/dL (6.2-8.2); Uric Acid 4.6 mg/dL (3.7-8.7)
== END | disposition home or self-care (01) ==
LOC: LABWHC1 08:56
PROVIDERS: ATTEND Internal Medicine
DX: C91.10 Chronic lymphocytic leukemia of B-cell type not having achieved remission (principal)
CPT/HCPCS: 36415; 80053; 83615; 83735; 84100; 84550; 85025

== ENCOUNTER → 2021-06-25 | Outpatient (CLI) | payer MEDICAID ==
[2021-06-25 10:19] LABS: Basophils # (A) 0.04 X 10*3/uL (0.00-0.10); Basophils % (A) 1.5 %; Eosinophils # (A) 0.07 X 10*3/uL (0.04-0.35); Eosinophils % (A) 2.7 %; HCT 37.8 % (39.6-50.0); HGB 12.7 g/dL (13.0-17.0); Immature Grans, Automated 0.4 %; Lymphocytes # (A) 0.47 X 10*3/uL (0.90-5.00); Lymphocytes % (A) 18.1 %; MCH 31.8 pg (27.0-32.0); MCHC 33.6 g/dL (32.0-37.0); MCV 94.7 fL (80.0-97.0); Mean Platelet Volume 10.4 fL (9.5-12.2); Monocytes # (A) 0.43 X 10*3/uL (0.20-1.00); Monocytes % (A) 16.6 %; NRBC Per 100 WBC 0 /100 WBCS (0.0-0.0); Neutrophils # (A) 1.57 X 10*3/uL (1.80-7.70); Neutrophils % (A) 60.7 %; Platelet Count 161 X 10*3/uL (140-440); RBC 3.99 X 10*6/uL (4.40-5.60); RDW 14.6 % (11.5-14.5); WBC 2.59 X 10*3/uL (4.50-10.00)
[2021-06-25 10:26] LABS: African American GFR (CKD) 112.6 (60.0-200.0); Albumin 4.3 g/dL (3.8-4.9); Albumin/Globulin Ratio 3.07 (1.60-3.17); BUN/Creat Ratio 16.78 Ratio (12.00-20.00); Blood Urea Nitrogen 15.1 mg/dL (9.0-27.0); Calcium 8.9 mg/dL (8.7-10.3); Globulin 1.4 g/dL (1.6-3.3); Magnesium 2.1 mg/dL (1.5-2.4); Non-African American GFR(CKD) 97.2 (60.0-200.0); Phosphorus 3.1 mg/dL (2.4-5.1); Potassium 4.5 mmol/L (3.5-5.5); Total Bilirubin 0.4 mg/dL (0.30-1.20); Total Protein 5.7 g/dL (6.2-8.2); Uric Acid 3.8 mg/dL (3.7-8.7)
== END | disposition home or self-care (01) ==
LOC: LABWHC1 06:54
PROVIDERS: ATTEND Internal Medicine
DX: C91.10 Chronic lymphocytic leukemia of B-cell type not having achieved remission (principal)
CPT/HCPCS: 36415; 80053; 83615; 83735; 84100; 84550; 85025

== ENCOUNTER → 2021-06-26 | Outpatient (CLI) | payer MEDICAID ==
[2021-06-26 10:44] LABS: Basophils # (A) 0.03 X 10*3/uL (0.00-0.10); Eosinophils # (A) 0.04 X 10*3/uL (0.04-0.35); Eosinophils % (A) 1.4 %; HCT 39.1 % (39.6-50.0); HGB 12.8 g/dL (13.0-17.0); Immature Grans, Automated 0.7 %; Lymphocytes # (A) 0.45 X 10*3/uL (0.90-5.00); Lymphocytes % (A) 15.3 %; MCHC 32.7 g/dL (32.0-37.0); MCV 94.7 fL (80.0-97.0); Mean Platelet Volume 10.4 fL (9.5-12.2); Monocytes # (A) 0.47 X 10*3/uL (0.20-1.00); NRBC Per 100 WBC 0 /100 WBCS (0.0-0.0); Neutrophils # (A) 1.93 X 10*3/uL (1.80-7.70); Neutrophils % (A) 65.6 %; Platelet Count 143 X 10*3/uL (140-440); RBC 4.13 X 10*6/uL (4.40-5.60); RDW 14.7 % (11.5-14.5); WBC 2.94 X 10*3/uL (4.50-10.00)
[2021-06-26 14:49] LABS: African American GFR (CKD) 95.7 (60.0-200.0); Albumin 4.2 g/dL (3.8-4.9); Albumin/Globulin Ratio 2.29 (1.60-3.17); Anion Gap 8.9 mmol/L (10.00-18.00); BUN/Creat Ratio 16.7 Ratio (12.00-20.00); Blood Urea Nitrogen 17.2 mg/dL (9.0-27.0); Globulin 1.8 g/dL (1.6-3.3); Magnesium 2.2 mg/dL (1.5-2.4); Non-African American GFR(CKD) 82.5 (60.0-200.0); Potassium 4.9 mmol/L (3.5-5.5); Total Bilirubin 0.3 mg/dL (0.30-1.20)
[2021-06-26 14:50] LABS: Phosphorus 2.4 mg/dL (2.4-5.1); Uric Acid 3.8 mg/dL (3.7-8.7)
== END | disposition home or self-care (01) ==
LOC: LABWHC1 08:17
PROVIDERS: ATTEND Internal Medicine
DX: C91.10 Chronic lymphocytic leukemia of B-cell type not having achieved remission (principal)
CPT/HCPCS: 36415; 80053; 83615; 83735; 84100; 84550; 85025

== ENCOUNTER → 2021-07-03 | Outpatient (CLI) | payer MEDICAID | END | disposition home or self-care (01) | LOC: LABWHC1 10:30 | PROVIDERS: ATTEND Internal Medicine Endocrinology, Diabetes & Metabolism | DX: Z53.9 Procedure and treatment not carried out, unspecified reason (principal) ==

== ENCOUNTER → 2021-08-16 | Outpatient (CLI) | payer MEDICAID ==
[~2021-08-16] MED LIST changes: -LACTATED RINGERS 1,000 ML IV SCH; +TIXAGEVIMAB/CILGAVIMAB (EUA) 300 MG/3 ML COMBO.PKG IM ONE
[2021-08-16 10:57] VITALS: RESP 16; TEMP 98.3
[2021-08-16 11:35] VITALS: BP 129/78; PULSE 84
== END ==
LOC: PROCWHC3 10:23
PROVIDERS: ATTEND Internal Medicine
DX: C91.11 Chronic lymphocytic leukemia of B-cell type in remission (principal); Z23 Encounter for immunization; Z88.5 Allergy status to narcotic agent; Z88.8 Allergy status to other drugs, medicaments and biological substances; Z87.891 Personal history of nicotine dependence
CPT/HCPCS: Q0220; M0220

== ENCOUNTER → 2021-10-09 | Outpatient (CLI) | payer MEDICAID | END | disposition home or self-care (01) | LOC: LABWHC1 08:56 | PROVIDERS: ATTEND Internal Medicine Endocrinology, Diabetes & Metabolism | DX: E29.1 Testicular hypofunction (principal) | CPT/HCPCS: 36415; 84403 ==

== ENCOUNTER → 2022-01-15 | Outpatient (CLI) | payer MEDICAID ==
[2022-01-15 14:32] LABS: Basophils # (A) 0.03 X 10*3/uL (0.00-0.10); Basophils % (A) 0.6 %; Eosinophils # (A) 0.01 X 10*3/uL (0.04-0.35); Eosinophils % (A) 0.2 %; HCT 46.6 % (39.6-50.0); Lymphocytes # (A) 1.47 X 10*3/uL (0.90-5.00); Lymphocytes % (A) 29.1 %; MCH 34.2 pg (27.0-32.0); MCHC 34.3 g/dL (32.0-37.0); MCV 99.6 fL (80.0-97.0); Monocytes % (A) 17.8 %; NRBC Per 100 WBC 0 /100 WBCS (0.0-0.0); Neutrophils % (A) 51.3 %; Platelet Count 154 X 10*3/uL (140-440); RBC 4.68 X 10*6/uL (4.40-5.60); RDW 13.4 % (11.5-14.5); WBC 5.06 X 10*3/uL (4.50-10.00)
[2022-01-15 14:45] LABS: African American GFR (CKD) 88.4 (60.0-200.0); Albumin 4.6 g/dL (3.8-4.9); Albumin/Globulin Ratio 2.3 (1.60-3.17); BUN/Creat Ratio 21.18 Ratio (12.00-20.00); Blood Urea Nitrogen 23.3 mg/dL (9.0-27.0); Calcium 9.3 mg/dL (8.7-10.3); Magnesium 2.3 mg/dL (1.5-2.4); Non-African American GFR(CKD) 76.2 (60.0-200.0); Phosphorus 2.9 mg/dL (2.4-5.1); Potassium 4.5 mmol/L (3.5-5.5); Total Bilirubin 0.5 mg/dL (0.30-1.20); Total Protein 6.6 g/dL (6.2-8.2); Uric Acid 5.5 mg/dL (3.7-8.7)
== END | disposition home or self-care (01) ==
LOC: LABWHC1 07:35
PROVIDERS: ATTEND Internal Medicine
DX: C91.10 Chronic lymphocytic leukemia of B-cell type not having achieved remission (principal)
CPT/HCPCS: 36415; 80053; 83615; 83735; 84100; 84550; 85025

== ENCOUNTER → 2022-02-24 | Outpatient (CLI) | payer MEDICAID ==
[2022-02-24 10:41] LABS: HCT 43.2 % (39.6-50.0); HGB 14.9 g/dL (13.0-17.0); MCH 34.7 pg (27.0-32.0); MCHC 34.5 g/dL (32.0-37.0); MCV 100.5 fL (80.0-97.0); Mean Platelet Volume 10.5 fL (9.5-12.2); NRBC Per 100 WBC 0 /100 WBCS (0.0-0.0); Platelet Count 152 X 10*3/uL (140-440); RDW 13.1 % (11.5-14.5); WBC 5.34 X 10*3/uL (4.50-10.00)
[2022-02-24 10:59] LABS: Prostate Specific Antigen 1.2 ng/mL (0.00-3.50)
== END | disposition home or self-care (01) ==
LOC: LABWHC1 07:33
PROVIDERS: ATTEND Internal Medicine Endocrinology, Diabetes & Metabolism
DX: E29.1 Testicular hypofunction (principal)
CPT/HCPCS: 36415; 84153; 84403; 85027

== ENCOUNTER 2022-03-13 12:48 | Emergency (ER) | payer MEDICAID, OTHER ==
[2022-03-13] MEDS ORDERED: SODIUM CHLORIDE 0.9% 500 ML 500 ML IV STA (13:13)
[2022-03-13] MEDS ORDERED: ACETAMINOPHEN TAB 500 MG TAB PO STA (13:13)
[2022-03-13] MEDS ORDERED: hydrALAZINE HCL 20 MG/ML 1 ML VIAL IVP STA (13:13)
[2022-03-13] MEDS ORDERED: IPRATROPIUM-ALBUTEROL 3 ML NEB INHALATION STA (13:13)
[2022-03-13] MEDS ORDERED: IBUPROFEN 600 MG TAB PO STA (13:13)
--- NOTE | 2022-03-13 13:18 | ED ---
General Adult HPI - General Chief complaint: Shortness of Breath Stated complaint: possible pneumonia Time Seen by Provider: 03/13/22 13:00 Source: patient, RN notes reviewed, old records reviewed Mode of arrival: ambulatory Limitations: no limitations - History of Present Illness Initial comments: This a 52-year-old male who presents emergency Department with a past medical history significant for CLL. Patient states she is currently being treated with oral medication. Patient comes in today because he states she's been fighting a cough for 2 weeks. Patient states she's been on Zithromax it was tested 2 weeks ago for cold it was negative. - Related Data Home Medications Medication Instructions Recorded Confirmed Morphine Sulfate [Ms Contin] 30 mg PO BID 01/25/16 03/13/22 Testosterone Cypionate 200 mg IM Q16D 12/18/17 03/13/22 [Depo-Testosterone] Ibuprofen [Motrin] 800 mg PO TID PRN 01/22/18 03/13/22 Triamcinolone 0.1% Cream [Kenalog 1 applic TOPICAL BID PRN 03/01/20 03/13/22 0.1% Cream] oxyCODONE HCL [oxyCODONE HCL (IR)] 10 mg PO TID PRN 03/01/20 03/13/22 Venetoclax [Venclexta] 200 mg PO DAILY 08/16/21 03/13/22 Losartan Potassium 100 mg PO DAILY 03/13/22 03/13/22 Ondansetron Odt [Zofran Odt] 4 mg PO Q8HR PRN 03/13/22 03/13/22 Previous Rx's Medication Instructions Recorded Albuterol Inhaler [Ventolin Hfa 1 - 2 puff INHALATION Q6HR PRN #2 03/13/22 Inhaler] each Benzonatate [Tessalon Perle] 200 mg PO TID #15 cap 03/13/22 Allergies Allergy/AdvReac Type Severity Reaction Status Date / Time meperidine [From Demerol] Allergy Rash/Hives Verified 03/13/22 14:27 sulfamethoxazole Allergy Rash/Hives Verified 03/13/22 14:27 [From Bactrim] trimethoprim [From Bactrim] Allergy Rash/Hives Verified 03/13/22 14:27 atenolol AdvReac severe Verified 03/13/22 14:27 headaches metoprolol AdvReac Lethargic,stomach Verified 03/13/22 14:27 pain topiramate AdvReac severe Verified 03/13/22 14:27 headaches,stomach pain Review of Systems ROS Statement: Those systems with pertinent positive or pertinent negative responses have been documented in the HPI. ROS Other: All systems not noted in ROS Statement are negative. Past Medical History Past Medical History: Blood Disorder, Cancer, Hypertension, Osteoarthritis (OA) Additional Past Medical History / Comment(s): Pt diagnosed with covid 19 on 02/20/20 at [facility]. CLL (CHronic Lymphocytic Leukemia), chronic low back pain-"Have cage around spine from L5-S1.", past gastric ulcer. anemic History of Any Multi-Drug Resistant Organisms: None Reported Past Surgical History: Back Surgery, Joint Replacement, Orthopedic Surgery Additional Past Surgical History / Comment(s): L5-S1 cage, total L knee arthrop lasty, multiple ortho procedures d/t work injuries, bilateral eye surgery for increased eye pressure to stop progression to glaucoma, ESS/septoplasty turbinates, lipoma removed from R arm. Past Anesthesia/Blood Transfusion Reactions: No Reported Reaction Additional Past Anesthesia/Blood Transfusion Reaction / Comment(s): Sister CRISSY. Past Psychological History: No Psychological Hx Reported Smoking Status: Former smoker Past Alcohol Use History: Rare Past Drug Use History: None Reported - Past Family History Mother Family Medical History: Cancer Additional Family Medical History / Comment(s): Mother of lung cancer at the age of 55 yrs. She was a smoker. Father Family Medical History: CVA/TIA Additional Family Medical History / Comment(s): Father is 75 yrs old. General Exam Limitations: no limitations Course Vital Signs 03/13/22 03/13/22 03/13/22 12:55 13:00 13:08 Temperature 99.4 F 100.2 F H Pulse Rate 137 H 132 H Respiratory 24 22 Rate Blood Pressure 181/105 207/97 O2 Sat by Pulse 97 97 97 Oximetry 03/13/22 03/13/22 03/13/22 13:36 13:41 14:30 Temperature 99.0 F Pulse Rate 126 H 133 H Respiratory Rate Blood Pressure O2 Sat by Pulse Oximetry 03/13/22 03/13/22 16:30 17:00 Temperature 98.8 F Pulse Rate 105 H 107 H Respiratory 20 20 Rate Blood Pressure 119/82 134/85 O2 Sat by Pulse 98 98 Oximetry Medical Decision Making - Medical Decision Making EKG was interpreted by me. EKG shows sinus tachycardia on a 31 bpm [place] interval is on a 34 QRS is 88 QT interval is 294 QTC is 434. Patient's EKG shows no ST segment elevation or depression. Was pt. sent in by a medical professional or institution? @ -None Did you speak to anyone other than the patient for history? @ -No Did you review nursing and triage notes? @ -Agree with nursing notes Were old charts reviewed? @ -No Differential Diagnosis? @ -Pneumonia, COVID, influenza, RSV, bronchospasms, bronchitis, PE, EKG interpreted by me (3pts min.)? @ -See above X-rays interpreted by me (1pt min.)? @ -I interpreted chest x-ray shows no acute abnormality. CT interpreted by me (1pt min.)? @ -I interpreted CT of the chest shows no abnormality U/S interpreted by me (1pt. min.)? @ -No What testing was considered but not performed? (CT, X-rays, U/S, labs)? Why? @ -No What meds were considered but not given? Why? @ -No Did you discuss the management of the patient with other professionals? @ -No Did you reconcile home meds? @ -No Was smoking cessation discussed for >3mins.? @ -No Was critical care preformed (if so, how long)? @ -No Were there social determinants of health that impacted care today? How? (Homel essness, low income, unemployed, alcoholism, drug addiction, transportation, low edu. Level, literacy, decrease access to med. care, usp, rehab)? @ -No Was there de-escalation of care discussed even if they declined? (Discuss DNR or withdrawal of care, Hospice)? @ -No What co-morbidities impacted this encounter? (DM, HTN, Smoking, COPD, CAD, Cancer, CVA, Hep., AIDS, mental health diagnosis, sleep apnea, morbid obesity)? @ -No Was patient admitted / discharged? @ -Patient will be discharged home. Patient has a positive influenza A test. Patient was given Motrin and Tylenol to bring the fever given 1/2 L of normal saline. Patient was also given a breathing treatment which halted his coughing. Patient's d-dimer was mildly elevated so he was sent for CT to rule out PE no PE was noted. Patient will be discharged to follow-up with primary medical care doctor and return if there is any new symptoms. Undiagnosed new problem with uncertain prognosis? @ -No Drug Therapy requiring intensive monitoring for toxicity (Heparin, Nitro, Insulin, Cardizem)? @ -No Were any procedures done? @ -No Diagnosis/symptom? @ -Influenza A Acute, or Chronic, or Acute on Chronic? @ -Acute Uncomplicated (without systemic symptoms) or Complicated (systemic symptoms)? @ -Uncomplicated Side effects of treatment? @ -None Exacerbation, Progression, or Severe Exacerbation] @ -No Poses a threat to life or bodily function? @ -No - Lab Data Result diagrams: 03/13/22 13:15 03/13/22 13:15 Lab Results 03/13/22 03/13/22 03/13/22 Range/Units 13:15 13:15 13:15 WBC 5.8 (3.8-10.6) k/uL RBC 4.73 (4.30-5.90) m/uL Hgb 16.6 (13.0-17.5) gm/dL Hct 46.2 (39.0-53.0) % MCV 97.6 (80.0-100.0) fL MCH 35.1 H (25.0-35.0) pg MCHC 36.0 (31.0-37.0) g/dL RDW 13.6 (11.5-15.5) % Plt Count 158 (150-450) k/uL MPV 7.9 Neutrophils % 77 % Lymphocytes % 12 % Monocytes % 7 % Eosinophils % 0 % Basophils % 1 % Neutrophils # 4.5 (1.3-7.7) k/uL Lymphocytes # 0.7 L (1.0-4.8) k/uL Monocytes # 0.4 (0-1.0) k/uL Eosinophils # 0.0 (0-0.7) k/uL Basophils # 0.0 (0-0.2) k/uL PT 10.3 (9.0-12.0) sec INR 1.0 (<1.2) APTT 24.3 (22.0-30.0) sec D-Dimer (<0.60) mg/L FEU Sodium 139 (137-145) mmol/L Potassium 4.0 (3.5-5.1) mmol/L Chloride 101 (98-107) mmol/L Carbon Dioxide 30 (22-30) mmol/L Anion Gap 8 mmol/L BUN 12 (9-20) mg/dL Creatinine 0.98 (0.66-1.25) mg/dL Est GFR (CKD-EPI)AfAm >90 (>60 ml/min/1.73 sqM) Est GFR (CKD-EPI)NonAf 88 (>60 ml/min/1.73 sqM) Glucose 189 H (74-99) mg/dL Lactic Ac Sepsis Rflx Plasma Lactic Acid Leroy (0.7-2.0) mmol/L Calcium 8.8 (8.4-10.2) mg/dL Magnesium 1.8 (1.6-2.3) mg/dL Total Bilirubin 1.0 (0.2-1.3) mg/dL AST 43 (17-59) U/L ALT 54 H (4-49) U/L Alkaline Phosphatase 143 H (38-126) U/L Troponin I (0.000-0.034) ng/mL Total Protein 7.2 (6.3-8.2) g/dL Albumin 4.8 (3.5-5.0) g/dL Influenza Type A (PCR) (Not Detectd) Influenza Type B (PCR) (Not Detectd) RSV (PCR) (Not Detectd) SARS-CoV-2 (PCR) (Not Detectd) 03/13/22 03/13/22 03/13/22 Range/Units 13:15 13:15 13:15 WBC (3.8-10.6) k/uL RBC (4.30-5.90) m/uL Hgb (13.0-17.5) gm/dL Hct (39.0-53.0) % MCV (80.0-100.0) fL MCH (25.0-35.0) pg MCHC (31.0-37.0) g/dL RDW (11.5-15.5) % Plt Count (150-450) k/uL MPV Neutrophils % % Lymphocytes % % Monocytes % % Eosinophils % % Basophils % % Neutrophils # (1.3-7.7) k/uL Lymphocytes # (1.0-4.8) k/uL Monocytes # (0-1.0) k/uL Eosinophils # (0-0.7) k/uL Basophils # (0-0.2) k/uL PT (9.0-12.0) sec INR (<1.2) APTT (22.0-30.0) sec D-Dimer 0.71 H (<0.60) mg/L FEU Sodium (137-145) mmol/L Potassium (3.5-5.1) mmol/L Chloride (98-107) mmol/L Carbon Dioxide (22-30) mmol/L Anion Gap mmol/L BUN (9-20) mg/dL Creatinine (0.66-1.25) mg/dL Est GFR (CKD-EPI)AfAm (>60 ml/min/1.73 sqM) Est GFR (CKD-EPI)NonAf (>60 ml/min/1.73 sqM) Glucose (74-99) mg/dL Lactic Ac Sepsis Rflx Plasma Lactic Acid Leroy 2.4 H* (0.7-2.0) mmol/L Calcium (8.4-10.2) mg/dL Magnesium (1.6-2.3) mg/dL Total Bilirubin (0.2-1.3) mg/dL AST (17-59) U/L ALT (4-49) U/L Alkaline Phosphatase (38-126) U/L Troponin I <0.012 (0.000-0.034) ng/mL Total Protein (6.3-8.2) g/dL Albumin (3.5-5.0) g/dL Influenza Type A (PCR) (Not Detectd) Influenza Type B (PCR) (Not Detectd) RSV (PCR) (Not Detectd) SARS-CoV-2 (PCR) (Not Detectd) 03/13/22 03/13/22 Range/Units 13:24 13:45 WBC (3.8-10.6) k/uL RBC (4.30-5.90) m/uL Hgb (13.0-17.5) gm/dL Hct (39.0-53.0) % MCV (80.0-100.0) fL MCH (25.0-35.0) pg MCHC (31.0-37.0) g/dL RDW (11.5-15.5) % Plt Count (150-450) k/uL MPV Neutrophils % % Lymphocytes % % Monocytes % % Eosinophils % % Basophils % % Neutrophils # (1.3-7.7) k/uL Lymphocytes # (1.0-4.8) k/uL Monocytes # (0-1.0) k/uL Eosinophils # (0-0.7) k/uL Basophils # (0-0.2) k/uL PT (9.0-12.0) sec INR (<1.2) APTT (22.0-30.0) sec D-Dimer (<0.60) mg/L FEU Sodium (137-145) mmol/L Potassium (3.5-5.1) mmol/L Chloride (98-107) mmol/L Carbon Dioxide (22-30) mmol/L Anion Gap mmol/L BUN (9-20) mg/dL Creatinine (0.66-1.25) mg/dL Est GFR (CKD-EPI)AfAm (>60 ml/min/1.73 sqM) Est GFR (CKD-EPI)NonAf (>60 ml/min/1.73 sqM) Glucose (74-99) mg/dL Lactic Ac Sepsis Rflx Y Plasma Lactic Acid Leroy (0.7-2.0) mmol/L Calcium (8.4-10.2) mg/dL Magnesium (1.6-2.3) mg/dL Total Bilirubin (0.2-1.3) mg/dL AST (17-59) U/L ALT (4-49) U/L Alkaline Phosphatase (38-126) U/L Troponin I (0.000-0.034) ng/mL Total Protein (6.3-8.2) g/dL Albumin (3.5-5.0) g/dL Influenza Type A (PCR) Detected A (Not Detectd) Influenza Type B (PCR) Not Detected (Not Detectd) RSV (PCR) Not Detected (Not Detectd) SARS-CoV-2 (PCR) Not Detected (Not Detectd) Disposition Clinical Impression: Influenza A Disposition: HOME SELF-CARE Instructions (If sedation given, give patient instructions): Influenza (ED) Prescriptions: Benzonatate [Tessalon Perle] 200 mg PO TID #15 cap Albuterol Inhaler [Ventolin Hfa Inhaler] 1 - 2 puff INHALATION Q6HR PRN #2 each PRN Reason: Difficulty breathing Is patient prescribed a controlled substance at d/c from ED?: No Referrals: Bob Fenton MD [Primary Care Provider] - 1-2 days Time of Disposition: 18:03
[2022-03-13 13:30] LABS: Basophils % (A) 1 %; Eosinophils % (A) 0 %; HCT 46.2 % (39.0-53.0); HGB 16.6 gm/dL (13.0-17.5); Lymphocytes # (A) 0.7 k/uL (1.0-4.8); Lymphocytes % (A) 12 %; MCH 35.1 pg (25.0-35.0); MCV 97.6 fL (80.0-100.0); Mean Platelet Volume 7.9; Monocytes # (A) 0.4 k/uL (0-1.0); Monocytes % (A) 7 %; Neutrophils # (A) 4.5 k/uL (1.3-7.7); Neutrophils % (A) 77 %; Platelet Count 158 k/uL (150-450); RBC 4.73 m/uL (4.30-5.90); RDW 13.6 % (11.5-15.5); WBC 5.8 k/uL (3.8-10.6)
[2022-03-13 13:41] LABS: ALT 54 U/L (4-49); AST 43 U/L (17-59); African American GFR (CKD) >90 (>60 ml/min/1.73 sqM); Albumin 4.8 g/dL (3.5-5.0); Alkaline Phosphatase 143 U/L (38-126); Anion Gap 8 mmol/L; Blood Urea Nitrogen 12 mg/dL (9-20); Calcium 8.8 mg/dL (8.4-10.2); Carbon Dioxide 30 mmol/L (22-30); Chloride 101 mmol/L (98-107); Glucose 189 mg/dL (74-99); Magnesium 1.8 mg/dL (1.6-2.3); Non-African American GFR(CKD) 88 (>60 ml/min/1.73 sqM); Sodium 139 mmol/L (137-145); Total Protein 7.2 g/dL (6.3-8.2)
[2022-03-13 13:44] LABS: Partial Thromboplastin Time 24.3 sec (22.0-30.0); Prothrombin Time 10.3 sec (9.0-12.0)
--- NOTE | 2022-03-13 13:52 | XR ---
EXAMINATION TYPE: XR chest 2V DATE OF EXAM: 03/13/2022 1:37 PM COMPARISON: Chest radiographs from 06/18/2021 TECHNIQUE: XR chest 2V Frontal and lateral views of the chest. CLINICAL INDICATION:Male, 52 years old with history of difficulty breathing; FINDINGS: Lungs/Pleura: There is no evidence of pleural effusion, focal consolidation, or pneumothorax. Pulmonary vascularity: Unremarkable. Heart/mediastinum: Cardiomediastinal silhouette is unremarkable. Musculoskeletal: No acute osseous pathology. IMPRESSION: No acute cardiopulmonary disease/process.
[2022-03-13] MEDS ORDERED: SODIUM CHLORIDE 0.9% 1,000 ML IV ONE (15:15)
[2022-03-13 17:00] VITALS: RESP 20
[2022-03-13 17:09] VITALS: BP 134/85; PULSE 107; TEMP 98.8
--- NOTE | 2022-03-13 17:44 | CT ---
EXAMINATION TYPE: CT chest angio for PE DATE OF EXAM: 03/13/2022 COMPARISON: None HISTORY: SOB, flu + CT DLP: 659 mGycm Automated exposure control for dose reduction was used. CONTRAST: Performed with IV Contrast, patient injected with 100 mL of Isovue 370. Images obtained from the thoracic inlet through the diaphragm with the IV contrast. There are Three-D postprocessed images. There is no mediastinal adenopathy. There are a few bilateral bronchial lymph nodes up to 1 cm. Thora cic aorta is intact. No aneurysm or dissection. There is no evidence of filling defect in the pulmonary arteries. There is some minimal subsegmental atelectasis right lung base. The thoracic spine is intact. No compression fracture. Upper abdominal soft tissues are intact. IMPRESSION: No evidence of pulmonary embolism. Minimal subsegmental atelectasis right lung base. Normal heart size.
== END 2022-03-13 18:25 | disposition home or self-care (01) ==
LOC: EC 12:48
DX: J10.1 Influenza due to other identified influenza virus with other respiratory manifestations (principal); I10 Essential (primary) hypertension; M19.90 Unspecified osteoarthritis, unspecified site; Z87.891 Personal history of nicotine dependence; Z20.822 Contact with and (suspected) exposure to COVID-19; Z79.1 Long term (current) use of non-steroidal anti-inflammatories (NSAID); Z79.899 Other long term (current) drug therapy; Z88.1 Allergy status to other antibiotic agents; Z88.2 Allergy status to sulfonamides; Z88.5 Allergy status to narcotic agent; Z88.8 Allergy status to other drugs, medicaments and biological substances
CPT/HCPCS: 36415; 94640; 93005; 85379; 80053; 83605; 83735; 84484; 85025; 85610; 85730; 87040; 87636; 71046; 71275; 99285; 96374; 96361 ×4; J0360; Q9967

== ENCOUNTER → 2022-06-02 | Outpatient (CLI) | payer MEDICAID ==
[2022-06-02 14:38] LABS: HCT 43.9 % (39.6-50.0); HGB 15.1 g/dL (13.0-17.0); MCHC 34.4 g/dL (32.0-37.0); MCV 98.9 fL (80.0-97.0); Mean Platelet Volume 10.2 fL (9.5-12.2); NRBC Per 100 WBC 0 /100 WBCS (0.0-0.0); Platelet Count 152 X 10*3/uL (140-440); RBC 4.44 X 10*6/uL (4.40-5.60); RDW 13.2 % (11.5-14.5); WBC 4.43 X 10*3/uL (4.50-10.00)
[2022-06-02 14:58] LABS: Prostate Specific Antigen 1.5 ng/mL (0.00-3.50)
== END | disposition home or self-care (01) ==
LOC: LABWHC1 07:44
PROVIDERS: ATTEND Internal Medicine Endocrinology, Diabetes & Metabolism
DX: E29.1 Testicular hypofunction (principal)
CPT/HCPCS: 36415; 84153; 84403; 85027

== ENCOUNTER → 2022-11-08 | Outpatient (CLI) | payer MEDICAID ==
--- NOTE | 2022-11-08 05:34 | XR ---
EXAMINATION TYPE: XR chest 2V DATE OF EXAM: 11/08/2022 COMPARISON: 03/13/2022 HISTORY: 52-year-old male with cough TECHNIQUE: PA and lateral views FINDINGS: The cardiomediastinal silhouette, aorta, and pulmonary vasculature are within normal limits. Lungs an d pleural spaces are clear. IMPRESSION: No acute cardiopulmonary process.
== END | disposition home or self-care (01) ==
LOC: RADXRMAIN 04:01
PROVIDERS: ATTEND Emergency Medicine
DX: R05.9 Cough, unspecified (principal)
CPT/HCPCS: 71046

== ENCOUNTER → 2023-07-19 | Outpatient (CLI) | payer MEDICAID ==
[2023-07-19 09:27] LABS: HCT 42.5 % (39.6-50.0); HGB 15.3 g/dL (13.0-17.0); MCH 34.7 pg (27.0-32.0); MCV 96.4 FL (80.0-97.0); Mean Platelet Volume 9.9 FL (9.5-12.2); NRBC Per 100 WBC 0 X 10*3/uL (0.00-0.01); Platelet Count 161 X 10*3/uL (140-440); RBC 4.41 X 10*6/uL (4.40-5.60); RDW 12.9 % (11.5-14.5); WBC 6.21 X 10*3/uL (4.50-10.00)
== END | disposition home or self-care (01) ==
LOC: LABMAIN 05:55
PROVIDERS: ATTEND Internal Medicine Endocrinology, Diabetes & Metabolism
DX: E29.1 Testicular hypofunction (principal)
CPT/HCPCS: 84153; 84403; 85027

== ENCOUNTER → 2023-09-16 | Outpatient (CLI) | payer MEDICAID ==
--- NOTE | 2023-09-16 10:06 | CTL ---
EXAMINATION TYPE: CT Low Dose Lung DATE OF EXAM ORDERED: 09/16/2023 HISTORY: Personal history of nicotine dependence, former smoker, quit 15 years ago, 20 pack year hist ory. Lung cancer screening CT DLP: 105.[address] CTDI: 2.6 mGy Automated exposure control for dose reduction was used. SCREENING VISIT: First screening visit COMPARISON: CT chest 03/13/2022, 03/01/2020 TECHNIQUE: Low dose computed tomography scan was performed through the chest at 1 mm thick sections a nd reconstructed images in multiple planes at 1 mm and [address] DIAGNOSTIC QUALITY: Satisfactory FINDINGS: Nodules: Left upper lobe 3.3 mm, nodule (series 6, image 14). Left mid lung 4.4 mm pulmonary nodule (series 6 image 23). Left lower lobe 3.4 mm pulmonary nodule (series 6, image 41). Right upper lobe 2.5 mm pulm onary nodule (series 6, image 25). Posterior right upper lobe 3.8 mm pulmonary nodule (series 6, imag e 27). These are stable from prior exams. LUNGS: COPD: Severity: None Fibrosis: Severity: None Lymph nodes: None Other findings: Linear scarring and/or atelectasis within the mid aspect of the right upper and middl e lobes. RIGHT PLEURAL SPACE: Effusion: None Calcification: None Thickening: None Pneumothorax: None LEFT PLEURAL SPACE: Effusion: None Calcification: None Thickening: None Pneumothorax: None HEART: Heart Size: Normal Coronary Calcification: None Pericardial Effusion: None OTHER FINDINGS: Upper abdomen: None Bony thorax: None Supraclavicular region: None Other: None IMPRESSION: Stable pulmonary nodules measuring less than 5 mm dating back to at least 2021. No new or enlarging pulmonary nodules. CT LUNG RAD AND CT CHEST RECOMMENDATION: Lung-Rad 2 Benign Appearance or Behavior: Continue annual sc reening with LDCT in 12 months. S Modifier (other clinically significant findings): None
== END | disposition home or self-care (01) ==
LOC: RADCTMAIN 06:37
PROVIDERS: ATTEND Internal Medicine
DX: Z12.2 Encounter for screening for malignant neoplasm of respiratory organs (principal); R91.8 Other nonspecific abnormal finding of lung field; Z87.891 Personal history of nicotine dependence
CPT/HCPCS: 71271

== ENCOUNTER 2023-09-27 21:07 | Observation (INO) | payer MEDICAID ==
[2023-09-27 21:12] VITALS: RESP 18
[2023-09-27] MEDS: NITROGLYCERIN SL TABS 0.4 MG TAB SUBLINGUAL STA (21:23)
--- NOTE | 2023-09-27 21:33 | XR ---
EXAMINATION TYPE: XR chest 2V DATE OF EXAM: 09/27/2023 9:29 PM CLINICAL INDICATION:Male, 53 years old with history of Chest Pain; [facility] COMPARISON: Chest radiographs from 11/08/2022 TECHNIQUE: XR chest 2V Frontal view of the chest. FINDINGS: Lungs/Pleura: There is flattening of the diaphragm with increased lucency of the lungs. No evidence o f pneumothorax, pleural effusion or focal consolidation. Pulmonary vascularity: Unremarkable. Heart/mediastinum: Cardiomediastinal silhouette is unremarkable. Musculoskeletal: No acute osseous pathology. IMPRESSION: 1. No acute cardiopulmonary disease process. 2. COPD changes.
--- NOTE | 2023-09-27 21:38 | ED ---
General Adult HPI - General Chief complaint: Chest Pain Stated complaint: Chest Pain Time Seen by Provider: 09/27/23 21:11 Source: patient Mode of arrival: ambulatory - History of Present Illness Initial comments: Dictation was produced using [email or web address] dictation software. please excuse any grammatical, word or spelling errors. Chief Complaint: 53-year-old male with history of CLL presents with chest pain History of Present Illness: 53-year-old male with past medical history of CLL. 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 He arrived at work when all of a sudden began having some chest pain. States that it is a pressure to substernal chest. Nonradiating associate with diaphoresis and nausea. Patient has no cardiac history. Denies any family history. Former tobacco use. Does have some active chest pain at the bedside. The ROS documented in this emergency department record has been reviewed and confirmed by me. Those systems with pertinent positive or negative responses have been documented in the HPI. All other systems are other negative and/or noncontributory. - Related Data Home Medications Medication Instructions Recorded Confirmed Morphine Sulfate [Ms Contin] 30 mg PO BID 01/25/16 03/13/22 Testosterone Cypionate 200 mg IM Q16D 12/18/17 03/13/22 [Depo-Testosterone] Ibuprofen [Motrin] 800 mg PO TID PRN 01/22/18 03/13/22 Triamcinolone 0.1% Cream [Kenalog 1 applic TOPICAL BID PRN 03/01/20 03/13/22 0.1% Cream] oxyCODONE HCL [oxyCODONE HCL (IR)] 10 mg PO TID PRN 03/01/20 03/13/22 Venetoclax [Venclexta] 200 mg PO DAILY 08/16/21 03/13/22 Losartan Potassium 100 mg PO DAILY 03/13/22 03/13/22 Ondansetron Odt [Zofran Odt] 4 mg PO Q8HR PRN 03/13/22 03/13/22 Previous Rx's Medication Instructions Recorded Albuterol Inhaler [Ventolin Hfa 1 - 2 puff INHALATION Q6HR PRN #2 03/13/22 Inhaler] each Benzonatate [Tessalon Perle] 200 mg PO TID #15 cap 03/13/22 Allergies Allergy/AdvReac Type Severity Reaction Status Date / Time meperidine [From Demerol] Allergy Rash/Hives Verified 09/27/23 21:12 sulfamethoxazole Allergy Rash/Hives Verified 09/27/23 21:12 [From Bactrim] trimethoprim [From Bactrim] Allergy Rash/Hives Verified 09/27/23 21:12 atenolol AdvReac severe Verified 09/27/23 21:12 headaches metoprolol AdvReac Lethargic,stomach Verified 09/27/23 21:12 pain topiramate AdvReac severe Verified 09/27/23 21:12 headaches,stomach pain Review of Systems ROS Statement: Those systems with pertinent positive or pertinent negative responses have been documented in the HPI. ROS Other: All systems not noted in ROS Statement are negative. Past Medical History Past Medical History: Blood Disorder, Cancer, Hypertension, Osteoarthritis (OA) Additional Past Medical History / Comment(s): Pt diagnosed with covid 19 on 02/20/20 at [facility]. CLL (CHronic Lymphocytic Leukemia), chronic low back pain-"Have cage around spine from L5-S1.", past gastric ulcer. anemic History of Any Multi-Drug Resistant Organisms: None Reported Past Surgical History: Back Surgery, Joint Replacement, Orthopedic Surgery Additional Past Surgical History / Comment(s): L5-S1 cage, total L knee arthroplasty, multiple ortho procedures d/t work injuries, bilateral eye surgery for increased eye pressure to stop progression to glaucoma, ESS/septoplasty turbinates, lipoma removed from R arm. Past Anesthesia/Blood Transfusion Reactions: No Reported Reaction Additional Past Anesthesia/Blood Transfusion Reaction / Comment(s): Sister CRISSY. Past Psychological History: No Psychological Hx Reported Smoking Status: Former smoker Past Alcohol Use History: Rare Past Drug Use History: None Reported - Past Family History Mother Family Medical History: Cancer Additional Family Medical History / Comment(s): Mother of lung cancer at the age of 55 yrs. She was a smoker. Father Family Medical History: CVA/TIA Additional Family Medical History / Comment(s): Father is 75 yrs old. General Exam - General Exam Comments Initial Comments: PHYSICAL EXAM: General Impression: Alert and oriented x3, not in acute distress HEENT: Normocephalic atraumatic, extra-ocular movements intact, pupils equal and reactive to light bilaterally, mucous membranes moist. Cardiovascular: Heart regular rate and rhythm Chest: Able to complete full sentences, no retractions, no tachypnea Abdomen: abdomen soft, non-tender, non-distended, no organomegaly Musculoskeletal: Pulses present and equal in all extremities, no peripheral edema Motor: no focal deficits noted Neurological: CN II-XII grossly intact, no focal motor or sensory deficits noted Skin: Intact with no visualized rashes Psych: Normal affect and mood Course Vital Signs 09/27/23 09/27/23 09/27/23 21:08 22:30 23:10 Temperature 97.8 F Pulse Rate 84 80 79 Respiratory 18 18 18 Rate Blood Pressure 164/88 130/86 128/88 O2 Sat by Pulse 100 100 100 Oximetry - Reevaluation(s) Reevaluation #1: 09/27/23 21:38 Patient with sublingual nitroglycerin which improved his chest symptoms. Reevaluation #2: 09/27/23 21:54 Repeat EKG showed no dynamic changes EKG Findings - EKG Comments: EKG Findings:: My EKG interpretation: Ventricular rate 83, sinus rhythm,. Oval 156, cures 86, QTc 366. No NV prolongation, no QTC prolongation, no ST or T-wave changes noted. Overall, this EKG is unremarkable Medical Decision Making - Medical Decision Making Was pt. sent in by a medical professional or institution (JESSICA Luna, CLAMP FORKLIFT OPERATOR, urgent care, hospital, or detention...) When possible be specific @ -No Did you speak to anyone other than the patient for history (EMS, parent, family, police, friend...)? What history was obtained from this source @ -No Did you review nursing and triage notes (agree or disagree)? Why? @ -I reviewed and agree with nursing and triage notes Were old charts reviewed (outside hosp., previous admission, EMS record, old EKG, old radiological studies, urgent care reports/EKG's, detention records)? Report findings @ -No old charts were reviewed Differential Diagnosis (chest pain, altered mental status, abdominal pain women, abdominal pain men, vaginal bleeding, musculoskeletal, weakness, fever, dyspnea, syncope, headache, dizziness, GI bleed, back pain, seizure, CVA, palpatations, mental health)? @ -Differential Chest Pain: Stable Angina, Unstable Angina, STEMI, NSTEMI Aortic Dissection, Pneumothorax, Musculoskeletal, Esophageal Spasm GERD, Cholecystitis, Pancreatitis, Zoster, thi s is not meant to be an all-inclusive list. EKG interpreted by me (3pts min.). @ -See above X-rays interpreted by me (1pt min.). @ -Chest x-ray is nonacute CT interpreted by me (1pt min.). @ -None done U/S interpreted by me (1pt. min.). @ -None done What testing was considered but not performed or refused? (CT, X-rays, U/S, labs)? Why? @ -None What meds were considered but not given or refused? Why? @ -None Was smoking cessation discussed for >3mins.? @ -No Were there social determinants of health that impacted care today? How? (Homelessness, low income, unemployed, alcoholism, drug addiction, transportation, low edu. Level, literacy, decrease access to med. care, longterm, rehab)? @ -No Was there de-escalation of care discussed even if they declined (Discuss DNR or withdrawal of care, Hospice)? DNR status @ -No What co-morbidities impacted this encounter? (DM, HTN, Smoking, COPD, CAD, Cancer, CVA, ARF, Chemo, Hep., AIDS, mental health diagnosis, sleep apnea, morbid obesity)? @ -None Was patient admitted / discharged? Hospital course, mention meds given and route, prescriptions, significant lab abnormalities, going to OR and other pertinent info. @ -53-year-old male presents emergency department with chest symptoms concerning for acute coronary syndrome. Vital signs are stable. EKG is negative. Serial EKG shows no dynamic changes. Patient's symptom improved with nitroglycerin. Patient reevaluated at bedside at 11:20 PM following stable condition. Labs are unremarkable. Troponin is negative. Patient given aspirin. Will be admitted with consultation to cardiology Did you discuss the management of the patient with other professionals (professionals i.e. , PA, CLAMP FORKLIFT OPERATOR, lab, RT, psych nurse, social and human services assistant, investor relations analyst, teacher, sales officer, employment case manager)? Give summary @ -Case discussed with hospitalist for admission Was critical care preformed (if so, how long)? @ -No Undiagnosed new problem with uncertain prognosis? @ -No Drug Therapy requiring intensive monitoring for toxicity (Heparin, Nitro, Insulin, Cardizem)? @ -No Were any procedures done? @ -No Diagnosis/symptom? Acute, or Chronic, or Acute on Chronic? Uncomplicated (without systemic symptoms) or Complicated (systemic symptoms)? @ -Chest pain Side effects of treatment? @ -No Exacerbation, Progression, or Severe Exacerbation? @ -No Poses a threat to life or bodily function? How? (Chest pain, [place], [place], pneumonia, PE, COPD, DKA, ARF, appy, cholecystitis, CVA, Diverticulitis, Homicidal, Suicidal, threat to staff... and all critical care pts) @ -yes - Lab Data Result diagrams: 09/27/23 21:20 09/27/23 21:20 Lab Results 09/27/23 09/27/23 09/27/23 Range/Units 21:20 21:20 21:20 WBC 7.3 (3.8-10.6) k/uL RBC 4.89 (4.30-5.90) m/uL Hgb 16.7 (13.0-17.5) gm/dL Hct 49.6 (39.0-53.0) % MCV 101.4 H (80.0-100.0) fL MCH 34.1 (25.0-35.0) pg MCHC 33.6 (31.0-37.0) g/dL RDW 13.0 (11.5-15.5) % Plt Count 165 (150-450) k/uL MPV 7.7 Neutrophils % 50 % Lymphocytes % 34 % Monocytes % 9 % Eosinophils % 2 % Basophils % 1 % Neutrophils # 3.7 (1.3-7.7) k/uL Lymphocytes # 2.5 (1.0-4.8) k/uL Monocytes # 0.7 (0-1.0) k/uL Eosinophils # 0.2 (0-0.7) k/uL Basophils # 0.1 (0-0.2) k/uL PT 10.0 (10.0-12.5) sec INR 0.9 (<1.2) APTT 24.6 (22.0-30.0) sec Sodium 138 (137-145) mmol/L Potassium 4.9 (3.5-5.1) mmol/L Chloride 106 (98-107) mmol/L Carbon Dioxide 26 (22-30) mmol/L Anion Gap 6 mmol/L BUN 26 H (9-20) mg/dL Creatinine 0.94 (0.66-1.25) mg/dL Est GFR (CKD-EPI)AfAm >90 (>60 ml/min/1.73 sqM) Est GFR (CKD-EPI)NonAf >90 (>60 ml/min/1.73 sqM) Glucose 80 (74-99) mg/dL Calcium 9.4 (8.4-10.2) mg/dL Magnesium 2.2 (1.6-2.3) mg/dL Total Bilirubin 0.7 (0.2-1.3) mg/dL AST 39 (17-59) U/L ALT 52 H (4-49) U/L Alkaline Phosphatase 78 (38-126) U/L Troponin I (0.000-0.034) ng/mL Total Protein 7.1 (6.3-8.2) g/dL Albumin 4.7 (3.5-5.0) g/dL 09/27/23 Range/Units 21:20 WBC (3.8-10.6) k/uL RBC (4.30-5.90) m/uL Hgb (13.0-17.5) gm/dL Hct (39.0-53.0) % MCV (80.0-100.0) fL MCH (25.0-35.0) pg MCHC (31.0-37.0) g/dL RDW (11.5-15.5) % Plt Count (150-450) k/uL MPV Neutrophils % % Lymphocytes % % Monocytes % % Eosinophils % % Basophils % % Neutrophils # (1.3-7.7) k/uL Lymphocytes # (1.0-4.8) k/uL Monocytes # (0-1.0) k/uL Eosinophils # (0-0.7) k/uL Basophils # (0-0.2) k/uL PT (10.0-12.5) sec INR (<1.2) APTT (22.0-30.0) sec Sodium (137-145) mmol/L Potassium (3.5-5.1) mmol/L Chloride (98-107) mmol/L Carbon Dioxide (22-30) mmol/L Anion Gap mmol/L BUN (9-20) mg/dL Creatinine (0.66-1.25) mg/dL Est GFR (CKD-EPI)AfAm (>60 ml/min/1.73 sqM) Est GFR (CKD-EPI)NonAf (>60 ml/min/1.73 sqM) Glucose (74-99) mg/dL Calcium (8.4-10.2) mg/dL Magnesium (1.6-2.3) mg/dL Total Bilirubin (0.2-1.3) mg/dL AST (17-59) U/L ALT (4-49) U/L Alkaline Phosphatase (38-126) U/L Troponin I <0.012 (0.000-0.034) ng/mL Total Protein (6.3-8.2) g/dL Albumin (3.5-5.0) g/dL Disposition Clinical Impression: Chest pain Disposition: ADMITTED IP TO THIS [facility] Condition: Fair Referrals: Bob Fenton MD [Primary Care Provider] - 1-2 days Decision Time: 23:21
[2023-09-27 21:46] LABS: INR 0.9 (<1.2); Partial Thromboplastin Time 24.6 sec (22.0-30.0)
[2023-09-27 22:01] LABS: Basophils # (A) 0.1 k/uL (0-0.2); Basophils % (A) 1 %; Eosinophils # (A) 0.2 k/uL (0-0.7); Eosinophils % (A) 2 %; HCT 49.6 % (39.0-53.0); HGB 16.7 gm/dL (13.0-17.5); Lymphocytes # (A) 2.5 k/uL (1.0-4.8); Lymphocytes % (A) 34 %; MCH 34.1 pg (25.0-35.0); MCHC 33.6 g/dL (31.0-37.0); MCV 101.4 fL (80.0-100.0); Mean Platelet Volume 7.7; Monocytes # (A) 0.7 k/uL (0-1.0); Monocytes % (A) 9 %; Neutrophils # (A) 3.7 k/uL (1.3-7.7); Neutrophils % (A) 50 %; Platelet Count 165 k/uL (150-450); RBC 4.89 m/uL (4.30-5.90); WBC 7.3 k/uL (3.8-10.6)
[2023-09-27 22:06] LABS: ALT 52 U/L (4-49); AST 39 U/L (17-59); African American GFR (CKD) >90 (>60 ml/min/1.73 sqM); Albumin 4.7 g/dL (3.5-5.0); Alkaline Phosphatase 78 U/L (38-126); Anion Gap 6 mmol/L; Blood Urea Nitrogen 26 mg/dL (9-20); Calcium 9.4 mg/dL (8.4-10.2); Carbon Dioxide 26 mmol/L (22-30); Chloride 106 mmol/L (98-107); Glucose 80 mg/dL (74-99); Magnesium 2.2 mg/dL (1.6-2.3); Non-African American GFR(CKD) >90 (>60 ml/min/1.73 sqM); Potassium 4.9 mmol/L (3.5-5.1); Sodium 138 mmol/L (137-145); Total Bilirubin 0.7 mg/dL (0.2-1.3); Total Protein 7.1 g/dL (6.3-8.2)
[2023-09-27] MEDS: ASPIRIN 81 MG PO STA (23:14)
[2023-09-28 09:30] LABS: Chol/HDL Ratio 3.78 Ratio; LDL Cholesterol,Calculated 108.7 mg/dL (0.0-131.0); VLDL Calculation 14.76 mg/dL (5.00-40.00)
[2023-09-28] MEDS ORDERED: NITROGLYCERIN SL TABS 0.4 MG TAB SUBLINGUAL PRN (10:04)
[2023-09-28] MEDS ORDERED: ALPRAZolam 0.25 MG TAB PO PRN (10:04)
[2023-09-28] MEDS ORDERED: ALPRAZolam 0.5 MG TAB PO PRN (10:04)
[2023-09-28] MEDS: NITROGLYCERIN SL TABS 0.4 MG TAB SUBLINGUAL PRN (10:08)
[2023-09-28] MEDS: ATORVASTATIN 80 MG TAB PO STA (10:20)
[2023-09-28] MEDS: ASPIRIN 325 MG TAB PO SCH (10:20)
[2023-09-28] MEDS: ASPIRIN 325 MG TAB PO STA (10:20)
--- NOTE | 2023-09-28 10:58 | P.CRDCN ---
History of Present Illness History of present illness: HISTORY OF PRESENTING ILLNESS This is a pleasant 53-year-old with past medical history significant for CLL presents with chest pain. He has never seen a movable bulkhead installer. He states he had an episode of chest pain while at work for approximately 4. 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 He had pain for approximately an hour and then notified emergency department and had EKGs as well as troponins which were noted to be normal. He was given nitroglycerin with improvement in his chest pain. He admits to associated nausea, diaphoresis and shortness of breath. Denies any recent fevers or chills. He does admit he has mild 1 out of 10 chest pain which started again this morning. REVIEW OF SYSTEMS At the time of my exam: CONSTITUTIONAL: Denies fever or chills. CARDIOVASCULAR: +chest pain, +shortness of breath, no orthopnea, PND or palpitations. RESPIRATORY: Denies cough. GASTROINTESTINAL: Denies abdominal pain, diarrhea, constipation, nausea or vomiting. MUSCULOSKELETAL: Denies myalgias. NEUROLOGIC: Denies numbness, tingling or weakness. ENDOCRINE: Denies fatigue, weight change, polydipsia or polyurina. GENITOURINARY: Denies burning, hematuria or urgency with micturation. HEMATOLOGIC: Denies history of anemia or bleeding. PHYSICAL EXAMINATION Vital signs reviewed. CONSTITUTIONAL: No apparent distress. HEENT: Head is normocephalic. Pupils are equal, round. Sclerae anicteric. Mucous membranes of the mouth are moist. No JVD. No carotid bruit. CHEST EXAMINATION: Lungs are clear to auscultation. No chest wall tenderness is noted on palpation or with deep breathing. HEART EXAMINATION: Regular rate and rhythm. S1, S2 heard. No murmurs, gallops or rub. ABDOMEN: Soft, nontender. Positive bowel sounds. EXTREMITIES: 2+ peripheral pulses, no lower extremity edema and no calf tenderness. NEUROLOGIC EXAMINATION: Patient is awake, alert and oriented x3. ASSESSMENT typical angina-type symptoms with shortness of breath, chest pain, nausea and diaphoresis improved with nitroglycerin consistent with unstable angina history of CLL PLAN patient's symptoms concerning for unstable angina. Check 2-D echo. Discussed definitive evaluation with heart catheterization patient is agreeable. Give nitroglycerin now and if worsens or does not improve we will start heparin drip. Heart catheterization today. Past Medical History Past Medical History: Blood Disorder, Cancer, Hypertension, Osteoarthritis (OA) Additional Past Medical History / Comment(s): Pt diagnosed with covid 19 on 02/20/20 at [facility]. CLL (CHronic Lymphocytic Leukemia), chronic low back pain-"Have cage around spine from L5-S1.", past gastric ulcer. anemic, ended cancer treatment May 2022 History of Any Multi-Drug Resistant Organisms: None Reported Past Surgical History: Back Surgery, Joint Replacement, Orthopedic Surgery Additional Past Surgical History / Comment(s): L5-S1 cage, total L knee arthroplasty, multiple ortho procedures d/t work injuries, bilateral eye surgery for increased eye pressure to stop progression to glaucoma, ESS/septoplasty turbinates, lipoma removed from R arm. Past Anesthesia/Blood Transfusion Reactions: No Reported Reaction Additional Past Anesthesia/Blood Transfusion Reaction / Comment(s): Sister CRISSY. Past Psychological History: No Psychological Hx Reported Additional Psychological History / Comment(s): Pt resides with his spouse and their adult son. He is independent. He has a pulse oximeter. Smoking Status: Former smoker Past Alcohol Use History: Rare Additional Past Alcohol Use History / Comment(s): Pt started smoking in 1990 and quit in 2007. Past Drug Use History: None Reported - Past Family History Mother Family Medical History: Cancer Additional Family Medical History / Comment(s): Mother of lung cancer at the age of 55 yrs. She was a smoker. Paternal grandmother of [place] at 50yrs old Father Family Medical History: CVA/TIA Additional Family Medical History / Comment(s): Father is 75 yrs old. Medications and Allergies Home Medications Medication Instructions Recorded Confirmed Type Morphine Sulfate [Ms Contin] 30 mg PO BID 01/25/16 09/28/23 History Testosterone Cypionate 200 mg IM Q16D 12/18/17 09/28/23 History [Depo-Testosterone] Ibuprofen [Motrin] 800 mg PO BID PRN 01/22/18 09/28/23 History Triamcinolone 0.1% Cream [Kenalog 1 applic TOPICAL BID PRN 03/01/20 09/28/23 History 0.1% Cream] oxyCODONE HCL [oxyCODONE HCL (IR)] 10 mg PO TID 03/01/20 09/28/23 History Losartan Potassium 100 mg PO DAILY 03/13/22 09/28/23 History Cyclobenzaprine [Flexeril] 10 mg PO BID PRN 09/28/23 09/28/23 History Vitamin C(Unknown Dose) 1 tab PO DAILY 09/28/23 09/28/23 History Vitamin D3(Unknown Dose) 1 tab PO DAILY 09/28/23 09/28/23 History Allergies Allergy/AdvReac Type Severity Reaction Status Date / Time meperidine [From Demerol] Allergy Rash/Hives Verified 09/28/23 06:46 sulfamethoxazole Allergy Rash/Hives Verified 09/28/23 06:46 [From Bactrim] trimethoprim [From Bactrim] Allergy Rash/Hives Verified 09/28/23 06:46 atenolol AdvReac severe Verified 09/28/23 06:46 headaches metoprolol AdvReac Lethargic,stomach Verified 09/28/23 06:46 pain topiramate AdvReac severe Verified 09/28/23 06:46 headaches,stomach pain Physical Exam Vitals: Vital Signs Temp Pulse Pulse Resp BP BP Pulse Ox 09/28/23 07:14 97.9 F 70 18 151/91 98 09/28/23 07:03 79 18 132/78 98 09/28/23 06:00 71 18 124/79 100 09/28/23 04:00 67 18 129/90 97 09/28/23 02:00 61 18 120/77 100 09/27/23 23:10 79 18 128/88 100 09/27/23 22:30 80 18 130/86 100 09/27/23 21:08 97.8 F 84 18 164/88 100 Intake and Output 09/27/23 09/28/23 09/28/23 22:59 06:59 14:59 Other: Weight 120.202 kg 120.202 kg Results 09/27/23 21:20 09/27/23 21:20 Cardiac Enzymes 09/27/23 09/27/23 09/28/23 Range/Units 21:20 21:20 00:14 AST 39 (17-59) U/L Troponin I <0.012 <0.012 (0.000-0.034) ng/mL 09/28/23 Range/Units 03:26 AST (17-59) U/L Troponin I <0.012 (0.000-0.034) ng/mL Coagulation 09/27/23 Range/Units 21:20 PT 10.0 (10.0-12.5) sec APTT 24.6 (22.0-30.0) sec Lipids 09/28/23 Range/Units 03:26 Triglycerides 73.80 (0.00-149.00) mg/dL Cholesterol 168.00 (0.00-200.00) mg/dL HDL Cholesterol 44.50 (40.00-60.00) mg/dL Cholesterol/HDL Ratio 3.78 Ratio CBC 09/27/23 Range/Units 21:20 WBC 7.3 (3.8-10.6) k/uL RBC 4.89 (4.30-5.90) m/uL Hgb 16.7 (13.0-17.5) gm/dL Hct 49.6 (39.0-53.0) % Plt Count 165 (150-450) k/uL Comprehensive Metabolic Panel 09/27/23 Range/Units 21:20 Sodium 138 (137-145) mmol/L Potassium 4.9 (3.5-5.1) mmol/L Chloride 106 (98-107) mmol/L Carbon Dioxide 26 (22-30) mmol/L BUN 26 H (9-20) mg/dL Creatinine 0.94 (0.66-1.25) mg/dL Glucose 80 (74-99) mg/dL Calcium 9.4 (8.4-10.2) mg/dL AST 39 (17-59) U/L ALT 52 H (4-49) U/L Alkaline Phosphatase 78 (38-126) U/L Total Protein 7.1 (6.3-8.2) g/dL Albumin 4.7 (3.5-5.0) g/dL Current Medications Generic Name Dose Route Start Last Admin Trade Name Freq PRN Reason Stop Dose Admin Alprazolam 0.25 mg 09/28/23 10:04 Alprazolam 0.25 Mg Tab PO Q6HR PRN Mild Anxiety Alprazolam 0.5 mg 09/28/23 10:04 Alprazolam 0.5 Mg Tab PO Q6HR PRN Moderate Anxiety Aspirin 325 mg 09/28/23 09:00 09/28/23 10:20 Aspirin 325 Mg Tab PO Not Given DAILY SEEMA Heparin Sodium (Porcine) 10, 1,001 mls @ 999 mls/hr 09/29/23 07:00 000 unit/ Sodium Chloride IRRIGATION 09/29/23 23:00 ONCE PRN INTRA-OP Heparin Sodium (Porcine) 2,500 250.5 mls @ 250 mls/hr 09/29/23 07:00 unit/ Sodium Chloride IRRIGATION 09/29/23 23:00 ONCE PRN INTRA-OP Nitroglycerin 0.4 mg 09/27/23 23:18 09/28/23 10:08 Nitroglycerin Sl Tabs 0.4 Mg Tab SUBLINGUAL 0.4 mg Q5M PRN Administration Chest Pain Nitroglycerin 0.4 mg 09/28/23 10:04 Nitroglycerin Sl Tabs 0.4 Mg Tab SUBLINGUAL Q5M PRN Chest Pain Intake and Output 09/27/23 09/28/23 09/28/23 22:59 06:59 14:59 Other: Weight 120.202 kg 120.202 kg Patient Weight 09/29/23 06:59 Weight 120.202 kg 09/27/23 21:20 09/27/23 21:20
[2023-09-28 11:59] LABS: Glucose,Whole Blood 109 mg/dL (70-110)
[2023-09-28] MEDS: IV FLUID CONTINUATION 1,000 ML IV ONE (12:12)
[2023-09-28] MEDS ORDERED: HEPARIN SODIUM 1,000 UN/ML (10ML VL) ONE (12:24)
[2023-09-28] MEDS ORDERED: fentaNYL (PF) 50 MCG/ML 2 ML AMP ONE (12:24)
[2023-09-28] MEDS: fentaNYL (PF) 50 MCG/ML 2 ML AMP IVP ONE (12:35)
[2023-09-28] MEDS: MIDAZOLAM 2 MG/2 ML VIAL IVP ONE (12:35)
[2023-09-28] MEDS: LIDOCAINE 1% INJ 10MG/ML (20 ML MDV) SQ ONE (12:37)
[2023-09-28] MEDS: VERAPAMIL 2.5 MG/ML 2 ML AMP INTRAARTER ONE (12:38)
[2023-09-28] MEDS: HEPARIN SODIUM,PORCINE 10,000 UNIT in SODIUM CHLORIDE 0.9% 1,000 ML IRRIGATION PRN (12:42)
[2023-09-28] MEDS: HEPARIN SODIUM 1,000 UN/ML (10ML VL) IV ONE (12:42)
[2023-09-28] MEDS: HEPARIN SODIUM,PORCINE (1 ML) 2,500 UNIT in SODIUM CHLORIDE 0.9% 250 ML IRRIGATION PRN (12:43)
[2023-09-28] MEDS: ADENOSINE IVP ONE (13:05)
[2023-09-28] MEDS: SODIUM CHLORIDE 0.9% IVP ONE (13:05)
[2023-09-28] MEDS: IOPAMIDOL-370 100ML BTL INJ ONE (13:13)
--- NOTE | 2023-09-28 13:24 | P.CARDCATH ---
Description of Procedure: PROCEDURES PERFORMED: Left heart catheterization, bilateral coronary angiography, ultrasound guided arterial access, iFR/FFR, IMR/CFR LAD INDICATION: Unstable angina CONSENT:I have discussed the risks, benefits and alternative therapies for the above-mentioned procedure and for both sedation/analgesia as well as necessary blood product administration, if indicated, as they pertain to this patient. The patient has indicated understanding and acceptance of the risks and procedures discussed. PROCEDURE: After the risks, benefits and alternatives of the above mentioned procedure explained in detail with the patient, informed consent was obtained. Patient was taken to the catheterization lab and prepped and draped in usual fa shion. Ultrasound guidance was used to assess for arterial access. 1% lidocaine was used to anesthetize the right radial artery. A 6-Lithuanian sheath was placed in the right radial artery using modified Seldinger technique and ultrasound guidance. Left coronary angiography was performed with a 5-Lithuanian JL 3.5 catheter and right coronary angiography was performed with a 5-Lithuanian FR5 catheter in various views. A 5-Lithuanian FR5 catheter was inserted into the left ventricle and pressure measurements were obtained. the decision was made to perform functional assessment of a LAD looking for microvascular disease. Using the FL 3.5 catheter, a 0.014 pressure wire was advanced in the left main and normalize. He was then advanced in the mid LAD. iFR was noted to be normal at 0.96. Hypernatremia was obtained with infusion of adenosine and FFR normal at 0.89. IMR was normal at 14 and CFR 1.2. The right radial sheath was removed and a TR band was placed with hemostasis achieved. The patient tolerated the procedure well. Patient was transported back to the post catheterization holding area in stable condition. Conscious Sedation: Patient was monitored under the direct supervision of myself for conscious sedation using Versed and fentanyl for a total duration of 30 minutes HEMODYNAMICS: Ao: 138/88 LV: 141/6, LVEDP 16 SELECTIVE CORONARY ARTERIOGRAPHY: LEFT MAIN: The left main is a large caliber vessel which bifurcates into the LAD and circumflex. There is no significant stenosis. LEFT ANTERIOR DESCENDING CORONARY ARTERY: LAD is a large caliber vessel which wraps around to the apex. There is no significant stenosis. LEFT CIRCUMFLEX CORONARY ARTERY: Left circumflex is a moderate caliber vessel without significant stenosis. RIGHT CORONARY ARTERY: The right coronary artery is a large caliber vessel which gives off a PDA and PLV branch and is the dominant vessel. There is no significant stenosis. FINAL IMPRESSION: 1. Normal coronary arteries as described above. 2. High normal left sided filling pressures 3. Normal iFR, FFR, IMR PLAN: 1. Aggressive risk factor modification per most recent ACC/AHA guidelines. 2. Given persistent angina symptoms continue with antianginals as needed.
[2023-09-28 13:27] VITALS: TEMP 98.1
[2023-09-28] MEDS ORDERED: CYCLOBENZAPRINE 10 MG TAB PO PRN (13:40)
[2023-09-28] MEDS: LOSARTAN 50 MG TAB PO STA (14:03)
[2023-09-28 16:29] VITALS: BP 118/79; PULSE 77
--- NOTE | 2023-09-28 16:30 | CA ---
Transthoracic Echo Report Name: Pernell Nguyễn Age: 53 Gender: M : 1970 Exam Date: 09/28/2023 11:12 Exam Location: [facility] Ht (in): 68 Wt (lb): 265 Ordering Physician: Leonid Peralta DO ([email or web address]) Attending/Referring Phys: Software Project Lead Neris Correa RDCS Procedure CPT: Indications: re: CP Cardiac Hx: Technical Quality: Contrast 1: Total Dose (mL): Contrast 2: Total Dose (mL): MEASUREMENTS (Male / Female) Normal Values 2D ECHO LV Diastolic Diameter PLAX 4.8 cm 4.2 - 5.9 / 3.9 - 5.3 cm LV Systolic Diameter PLAX 3.0 cm IVS Diastolic Thickness 1.1 cm 0.6 - 1.0 / 0.6 - 0.9 cm LVPW Diastolic Thickness 1.0 cm 0.6 - 1.0 / 0.6 - 0.9 cm LV Relative Wall Thickness 0.4 LVOT Diameter 2.3 cm LV Diastolic Volume MOD BP 139.8 cm??? 67 - 155 / 56 - 104 cm??? LV Systolic Volume MOD BP 47.0 cm??? 22 - 58 / 19 - 49 cm??? LV Ejection Fraction MOD BP 66.4 % >= 55 % LV Cardiac Index MOD BP 2417.6 cm???/min???m??? LV Diastolic Volume MOD 4C 140.3 cm??? LV Systolic Volume MOD 4C 43.3 cm??? LV Ejection Fraction MOD 4C 69.1 % LV Cardiac Index MOD 4C 2524.6 cm???/min???m??? LV Diastolic Length 4C 9.5 cm LV Systolic Length 4C 7.4 cm LV Diastolic Volume MOD 2C 134.4 cm??? LV Systolic Volume MOD 2C 51.0 cm??? LV Ejection Fraction MOD 2C 62.0 % LV Cardiac Index MOD 2C 2171.5 cm???/min???m??? LV Diastolic Length 2C 9.1 cm LV Systolic Length 2C 7.3 cm LA Volume 61.1 cm??? 18 - 58 / 22 - 52 cm??? LA Volume Index 24.9 cm???/m??? 16 - 28 cm???/m??? Ascending Aorta Diameter 3.4 cm DOPPLER AV Peak Velocity 170.8 cm/s AV Peak Gradient 11.7 mmHg AV Mean Velocity 114.3 cm/s AV Mean Gradient 5.9 mmHg AV Velocity Time Integral 32.6 cm LVOT Peak Velocity 131.0 cm/s LVOT Peak Gradient 6.9 mmHg LVOT Velocity Time Integral 24.5 cm LVOT Stroke Volume 104.2 cm??? LVOT Stroke Volume Index 45.2 ml/m??? LVOT Cardiac Index 2714.2 cm???/min???m??? AV Area Cont Eq vti 3.2 cm??? AV Area Cont Eq pk 3.3 cm??? MV Area PHT 3.6 cm??? Mitral E Point Velocity 86.4 cm/s Mitral A Point Velocity 55.4 cm/s Mitral E to A Ratio 1.6 MV Deceleration Time 210.9 ms PV Peak Velocity 133.7 cm/s PV Peak Gradient 7.1 mmHg FINDINGS Left Ventricle Left ventricular ejection fraction is estimated at 60-65 %. Mildly increased septal wall thickness. Left ventricular cavity size normal. No obvious regional wall motion abnormalities. Right Ventricle Normal right ventricular size and function. Unable to estimate the right ventricular systolic pressure. Right Atrium Normal right atrial size. Left Atrium Mildly increased left atrial volume. Mitral Valve Structurally normal mitral valve. No evidence for mitral valve prolapse. No mitral stenosis. Trace mitral regurgitation. Aortic Valve Trileaflet aortic valve. No aortic valve stenosis or regurgitation. Tricuspid Valve Structurally normal tricuspid valve. No tricuspid stenosis. Trace tricuspid regurgitation. Pulmonic Valve Structurally normal pulmonic valve. No pulmonic stenosis. No pulmonic regurgitation. Pericardium No pericardial effusion. Aorta Normal size aortic root and proximal ascending aorta. CONCLUSIONS Left ventricular ejection fraction 60-65% Mildly increased left ventricular wall thickness Trace mitral regurgitation Trace tricuspid regurgitation No pericardial effusion Previewed by: Dr. Leonid Peralta DO (Electronically Signed) Final Date: 28 September 2023 16:29
--- NOTE | 2023-09-28 19:15 | P.HPIM ---
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 he was walking around suffered from retrosternal chest pain associated with significant pain with deep inspiration associated with diaphoresis, the pain lasted for about an hour, he ended up coming to the ER for evaluation he was hypertensive at that time, he was seen by the emergency room physician, twelve-lead EKG did not show evidence of acute abnormalities, patient did receive nitroglycerin which helped the pain, patient definitely had symptoms suggestive of unstable angina, because of the presentation patient was admitted to the hospital he was started on heparin drip, he was placed back on his medication, he was seen in consultation by cardiology he did have a left heart catheterization that showed normal coronary artery with normal to high left ventricular end-diastolic pressure, patient also had echocardiogram that showed normal LV function with mild mitral regurgitation and tricuspid regurgitation patient after that underwent CT chest abdomen pelvis with contrast that is still pending at the time of dictation, however the patient is feeling fine his blood pressure is back to normal, I will discharge the patient and follow-up with him as an outpatient in the next 1 or 2 days, he is to follow-up with Dr. Peralta as an outpatient in 1 week. REVIEW OF SYSTEMS: Constitutional: No documented fever, no chills, no night sweats. No weight change. No weakness, fatigue or lethargy. No daytime sleepiness. EENT: No headache. No blurred vision or double vision, no loss of vision. No loss of Hearing, no ringing in the ears, no dizziness. No nasal drainage or congestion. No epistaxis. No sore throat. Lungs:positive for shortness of breath, no cough, no sputum production. No wheezing. Reports dyspnea with activity. Cardiovascular: positive for chest pain, no lower extremity edema. No palpitations. No paroxysmal nocturnal dyspnea. No orthopnea. No lightheadedness or dizziness. No syncopal episodes. Abdominal: Reports abdominal pain. No nausea, vomiting. No diarrhea. No constipation. No bloody or tarry stools reports loss of appetite. Genitourinary: No dysuria, increased frequency, urgency. No urinary retention. Musculoskeletal: No myalgias. No muscle weakness, no gait dysfunction, no frequent falls. No back pain. No neck pain. Integumentary: No wounds, no lesions. No rash or pruritus. No unusual bruising. No change in hair or nails. Neurologic: No aphasia. No facial droop. No change in mentation. No head injury. No headache. No paralysis. No paresthesia. Psychiatric: No depression. No anxiety. No mood swings. Endocrine: No abnormal blood sugars. No weight change. PAST MEDICAL HISTORY: Hypertension and hypertensive cardiovascular disease. Mixed hyperlipidemia. Low testosterone level. Chronic lymphocytic leukemia. Chronic low back pain. Chronic pain syndrome. Obesity. PAST SURGICAL HISTORY: Surgery on the left eye for squint 1972 Vasectomy 12/1998 Left knee arthroscopic surgery 04/1999 Open tibial tubercle osteotomy August 14, 1999 Arthroscopic surgery left knee January 27, 2000 Partial left knee replacement July 08, 2000 Achilles allograft 06/23/2001 Left total knee replacement 06/22/2002 Spinal fusion of L5-S1 December 28, 2008 Peripheral iridotomy right eye January 04, 2016 Lipoma removed from the upper right arm January 28, 2016 Peripheral iridotomy left eye February 01, 2016 Septoplasty and endoscopy January 28, 2018 Colonoscopy 10/27/2018 SOCIAL HISTORY: Patient used to smoke about a pack every day since the age of 20 and quit in November 05, 2007. Patient denies any alcohol ingestion, no drug use or abuse. FAMILY HISTORY: Father 78-year-old with hypertension and CVA and diabetes mellitus type 2, mother at age of 55 from lung cancer patient has 1 sister 54-year-old with diabetes mellitus hypertension and ankylosing spondylitis, patient has 2 son alive and well. Paternal grandmother had an PA maternal grandfather abdominal aortic aneurysm and hypertension maternal aunt abdominal aortic aneurysm lymphoma and brain cancer maternal grandmother stroke diabetes and heart disease maternal uncle abdominal aortic aneurysm prostate cancer PHYSICAL EXAMINATION: General: 53-year-old male sitting up in bed in no apparent distress. HEENT: Head is atraumatic, normocephalic, pupils were equal round reactive to light and recommendation, extraocular muscle movement were intact, sclera nonicteric, conjunctivae were pale, mucous membranes of the mouth are somewhat dry. Neck: Supple, no JVP, normal carotid upstroke bilaterally, no lymphadenopathy. Chest: Decreased breath sounds at the bases, few rhonchi, no expiratory wheezes, no chest wall tenderness, no intercostal retractions. Heart: First heart sound is normal, second heart sound is normal there is no gallop or murmur. Abdomen: Soft, nontender, nondistended, positive bowel sounds. Extremities: There is no edema no calf tenderness DP +2 bilaterally. Neurologic examination: Patient is awake alert and oriented x 3, cranial nerves II-12 appear grossly intact, muscle power were 5 out of 5 in upper extremities and 5 out of 5 in bilateral lower extremities, deep tendon reflexes normal bilaterally. ASSESSMENT AND PLAN: 1. Chest pain likely noncardiac patient underwent left heart catheterization that showed normal coronary arteries with slightly elevated left ventricular end-diastolic pressure, patient also underwent echocardiogram that was normal for LV function, mild mitral regurgitation and tricuspid regurgitation patient underwent CT chest abdomen and pelvis with contrast to rule out any aortic dissection or aneurysm the result of which still pending at the time of dictation, patient is not hypertensive at this point in time, has no chest pain at this time, therefore he will be discharged home and follow-up with me as an outpatient in the next 1 or 2 days For the result of the test. 2. Hypertension and hypertensive cardiovascular disease. Continue patient on losartan 100 mg once every day, monitor the patient blood pressure very closely. 3. Low testosterone level patient has been under the care of endocrinology he has been getting testosterone cypionate 200 mg IM every 16 days, he follows regularly with endocrinology. 4. Spondylosis of the lumbar spine with chronic pain syndrome continue patient on morphine sulfate ER 30 mg orally twice every day as well as oxycodone 10 mg orally as needed twice every day, 5. Mixed hyperlipidemia. Patient is not taking any statin at this point in time, he was to be on atorvastatin, however5. He would not tolerate the side effect, his LDL cholesterol is reasonable. Preferably to keep him between 55 and 75 due to his family history. I would recommend for the patient to go back on atorvastatin at least 20 mg orally once every day and monitor the patient lipid panel 6. Chronic lymphocytic leukemia currently in remission. 7. Obesity diet and exercise and weight loss. Patient may benefit from GLP-1 receptor agonist. 8. Patient is medically stable for discharge home. 9. Observation. 10. Full code. 11. Follow-up with me as an outpatient in 1 to 2 days. Follow-up with Dr. Peralta as an outpatient in 1 week. Past Medical History Past Medical History: Blood Disorder, Cancer, Hypertension, Osteoarthritis (OA) Additional Past Medical History / Comment(s): Pt diagnosed with covid 19 on 02/20/20 at [facility]. CLL (CHronic Lymphocytic Leukemia), chronic low back pain-"Have cage around spine from L5-S1.", past gastric ulcer. anemic, ended cancer treatment May 2022 History of Any Multi-Drug Resistant Organisms: None Reported Past Surgical History: Back Surgery, Joint Replacement, Orthopedic Surgery Additional Past Surgical History / Comment(s): L5-S1 cage, total L knee arthroplasty, multiple ortho procedures d/t work injuries, bilateral eye surgery for increased eye pressure to stop progression to glaucoma, ESS/septoplasty tu rbinates, lipoma removed from R arm. Past Anesthesia/Blood Transfusion Reactions: No Reported Reaction Additional Past Anesthesia/Blood Transfusion Reaction / Comment(s): Sister PONEduardo. Past Psychological History: No Psychological Hx Reported Additional Psychological History / Comment(s): Pt resides with his spouse and their adult son. He is independent. He has a pulse oximeter. Smoking Status: Former smoker Past Alcohol Use History: Rare Additional Past Alcohol Use History / Comment(s): Pt started smoking in 1990 and quit in 2007. Past Drug Use History: None Reported - Past Family History Mother Family Medical History: Cancer Additional Family Medical History / Comment(s): Mother of lung cancer at the age of 55 yrs. She was a smoker. Paternal grandmother of PA at 50yrs old Father Family Medical History: CVA/TIA Additional Family Medical History / Comment(s): Father is 75 yrs old. Medications and Allergies Home Medications Medication Instructions Recorded Confirmed Type Morphine Sulfate [Ms Contin] 30 mg PO BID 01/25/16 09/28/23 History Testosterone Cypionate 200 mg IM Q16D 12/18/17 09/28/23 History [Depo-Testosterone] Ibuprofen [Motrin] 800 mg PO BID PRN 01/22/18 09/28/23 History Triamcinolone 0.1% Cream [Kenalog 1 applic TOPICAL BID PRN 03/01/20 09/28/23 History 0.1% Cream] oxyCODONE HCL [oxyCODONE HCL (IR)] 10 mg PO TID 03/01/20 09/28/23 History Losartan Potassium 100 mg PO DAILY 03/13/22 09/28/23 History Cyclobenzaprine [Flexeril] 10 mg PO BID PRN 09/28/23 09/28/23 History Vitamin C(Unknown Dose) 1 tab PO DAILY 09/28/23 09/28/23 History Vitamin D3(Unknown Dose) 1 tab PO DAILY 09/28/23 09/28/23 History Allergies Allergy/AdvReac Type Severity Reaction Status Date / Time meperidine [From Demerol] Allergy Rash/Hives Verified 09/28/23 06:46 sulfamethoxazole Allergy Rash/Hives Verified 09/28/23 06:46 [From Bactrim] trimethoprim [From Bactrim] Allergy Rash/Hives Verified 09/28/23 06:46 atenolol AdvReac severe Verified 09/28/23 06:46 headaches metoprolol AdvReac Lethargic,stomach Verified 09/28/23 06:46 pain topiramate AdvReac severe Verified 09/28/23 06:46 headaches,stomach pain Physical Exam Vitals: Vital Signs Temp Pulse Pulse Resp BP BP Pulse Ox 09/28/23 13:20 98.1 F 85 151/91 97 09/28/23 07:14 97.9 F 70 18 151/91 98 09/28/23 07:03 79 18 132/78 98 09/28/23 06:00 71 18 124/79 100 09/28/23 04:00 67 18 129/90 97 09/28/23 02:00 61 18 120/77 100 09/27/23 23:10 79 18 128/88 100 09/27/23 22:30 80 18 130/86 100 09/27/23 21:08 97.8 F 84 18 164/88 100 Intake and Output 09/27/23 09/28/23 09/28/23 22:59 06:59 14:59 Intake Total 321 Balance 321 Intake: IV 321 Other: Weight 120.202 kg 120.202 kg Results CBC & Chem 7: 09/27/23 21:20 09/27/23 21:20 Labs: Abnormal Lab Results - Last 24 Hours (Table) 07/14/24 07/14/24 Range/Units 21:20 21:20 MCV 101.4 H (80.0-100.0) fL BUN 26 H (9-20) mg/dL ALT 52 H (4-49) U/L Thrombosis Risk Factor Assmnt - Choose All That Apply Any of the Below Risk Factors Present?: Yes Each Factor Represents 1 point: Age 41-60 years Other Risk Factors: No Thrombosis Risk Factor Assessment Total Risk Factor Score: 1 Thrombosis Risk Factor Assessment Level: Low Risk
[2023-09-28] MEDS ORDERED: MORPHINE SULFATE ER 30 MG TABLET PO SCH (21:00)
--- NOTE | 2023-09-28 21:17 | CT ---
EXAMINATION TYPE: CT ChestAbdPelvis w con DATE OF EXAM: 09/28/2023 COMPARISON: CT chest 09/16/2023 and 03/13/2022 HISTORY: 53-year-old male chest and back pain. hx of leukemia. TECHNIQUE: Contiguous axial scanning of the chest, abdomen, and pelvis performed with IV Contrast, pa tient injected with 100 mL of Isovue 300. Delayed images through the kidneys were obtained. Coronal/s agittal reconstructions performed. CT DLP: 1629 mGycm Automated exposure control for dose reduction was used. FINDINGS: Chest: The heart is normal size without pericardial effusion. Aorta is normal caliber with conventional branching anatomy. No thoracic lymphadenopathy by CT size criteria. A few scattered 4 mm and smaller pulmonary nodules are redemonstrated. See recommendations on patient 's lung cancer screening CT performed earlier this month. Strandy atelectasis/scarring anterior right midlung, inferior lingula, and posterior right apex redemonstrated. No consolidation or pleural effu danilo. ABDOMEN: No focal liver lesion or biliary ductal dilatation. Portal venous system is patent. Gallbladder, adrenal glands, kidneys, spleen, pancreas within normal limits. No dilated small bowel, free fluid, or free air. No mesenteric or retroperitoneal lymphadenopathy. Mild stool burden. No pericolonic inflammatory change. Pelvis: Bladder is urine distended. Prostate gland normal size. No abnormal fluid collection in the pelvis or pelvic lymphadenopathy seen. Bones: Mild degenerative change of the hips. Patient with L5-S1 posterior and interbody lumbar fusion. There is severe hypertrophic facet arthropathy above the fusion at L4-L5 with degenerative grade 1 anterol isthesis. Some developing bridging anterior endplate spondylosis lower thoracic spine. IMPRESSION: 1. NO SPECIFIC ACUTE PROCESS SEEN. 2. L5-S1 POSTERIOR AND INTERBODY LUMBAR FUSION. SEVERE HYPERTROPHIC FACET ARTHROPATHY ABOVE AT L4-L5 WITH A DEGENERATIVE GRADE 1 ANTEROLISTHESIS HERE.
[2023-09-29] MEDS ORDERED: LOSARTAN 50 MG TAB PO SCH (09:00)
== END 2023-09-28 19:02 | disposition home or self-care (01) ==
LOC: EC 21:07 → 6NMEDSUR 23:18
PROVIDERS: ADMIT Internal Medicine; ATTEND Internal Medicine
DX: I20.9 Angina pectoris, unspecified (principal); I11.9 Hypertensive heart disease without heart failure; E78.5 Hyperlipidemia, unspecified; C91.11 Chronic lymphocytic leukemia of B-cell type in remission; E66.9 Obesity, unspecified; E78.2 Mixed hyperlipidemia; E87.0 Hyperosmolality and hypernatremia; G89.4 Chronic pain syndrome; I08.1 Rheumatic disorders of both mitral and tricuspid valves; M47.816 Spondylosis without myelopathy or radiculopathy, lumbar region; Z80.1 Family history of malignant neoplasm of trachea, bronchus and lung; Z80.42 Family history of malignant neoplasm of prostate; Z80.7 Family history of other malignant neoplasms of lymphoid, hematopoietic and related tissues; Z80.8 Family history of malignant neoplasm of other organs or systems; Z82.3 Family history of stroke; Z82.49 Family history of ischemic heart disease and other diseases of the circulatory system; Z83.3 Family history of diabetes mellitus; Z96.652 Presence of left artificial knee joint; Z87.891 Personal history of nicotine dependence; Z87.11 Personal history of peptic ulcer disease; Z86.16 Personal history of COVID-19
CPT/HCPCS: 96374; 99285; 36415; 93005; 93306; 93571; 93458; 80061; 80053; 83735; 84484 ×2; 85025; 85610; 85730; 71046; 71260; 74177; G0378 ×2; C1769 ×2; C1894; J2250; J1644 ×3; J2001; J3010; J0153; Q9967 ×2

== ENCOUNTER → 2023-12-12 | Outpatient (CLI) | payer MEDICAID ==
[2023-12-12 23:04] LABS: HCT 43.2 % (39.6-50.0); HGB 15.4 g/dL (13.0-17.0); MCH 35.1 pg (27.0-32.0); MCHC 35.6 g/dL (32.0-37.0); MCV 98.4 FL (80.0-97.0); Mean Platelet Volume 9.9 FL (9.5-12.2); NRBC Per 100 WBC 0 X 10*3/uL (0.00-0.01); Platelet Count 184 X 10*3/uL (140-440); RBC 4.39 X 10*6/uL (4.40-5.60); RDW 12.8 % (11.5-14.5); WBC 7.08 X 10*3/uL (4.50-10.00)
[2023-12-12 23:33] LABS: Prostate Specific Antigen 3.06 ng/mL (0.000-3.500)
== END | disposition home or self-care (01) ==
LOC: LABMAIN 04:25
PROVIDERS: ATTEND Internal Medicine Endocrinology, Diabetes & Metabolism
DX: E29.1 Testicular hypofunction (principal)
CPT/HCPCS: 84153; 84403; 85027

== ENCOUNTER → 2024-01-05 | Outpatient (CLI) | payer MEDICAID ==
[2024-01-05 07:40] LABS: Appearance,Urine Clear (Clear); Bilirubin,Urine Negative (Negative); Blood,Urine Negative (Negative); Color,Urine Colorless; Glucose,Urine (UA) Negative (Negative); Ketones,Urine Negative (Negative); Leukocyte Esterase,Urine Negative (Negative); Nitrite,Urine Negative (Negative); Protein,Urine Negative (Negative); Urobilinogen,Urine <2.0 mg/dL (<2.0)
[2024-01-05 13:48] LABS: Microalbumin Creatinine Ratio <27 mg/g Cr (0-30); Urine Creatinine 44.4 mg/dL (39.0-259.0)
[2024-01-05 14:00] LABS: Chol/HDL Ratio 3.59 Ratio
[2024-01-05 14:01] LABS: ALT 58 U/L (10-49); AST 28 U/L (14-35); Albumin 4.6 g/dL (3.8-4.9); Alkaline Phosphatase 86 U/L (41-126); Blood Urea Nitrogen 21.7 mg/dL (9.0-27.0); Calcium 9.5 mg/dL (8.7-10.3); Carbon Dioxide 25.6 mmol/L (21.6-31.8); Chloride 104 mmol/L (96-109); Glucose 123 mg/dL (70-110); LDL Cholesterol,Calculated 120.3 mg/dL (0.0-131.0); Sodium 140 mmol/L (135-145); Total Bilirubin 0.4 mg/dL (0.3-1.2); Total Protein 6.6 g/dL (6.2-8.2)
[2024-01-05 16:11] LABS: Basophils # (A) 0.05 X 10*3/uL (0.00-0.10); Basophils % (A) 0.9 %; Eosinophils # (A) 0.19 X 10*3/uL (0.04-0.35); Eosinophils % (A) 3.4 %; HCT 48.1 % (39.6-50.0); HGB 16.4 g/dL (13.0-17.0); Lymphocytes # (A) 1.61 X 10*3/uL (0.90-5.00); Lymphocytes % (A) 28.4 %; MCH 33.9 pg (27.0-32.0); MCHC 34.1 g/dL (32.0-37.0); MCV 99.4 FL (80.0-97.0); Mean Platelet Volume 10.2 FL (9.5-12.2); Monocytes # (A) 0.59 X 10*3/uL (0.20-1.00); Monocytes % (A) 10.4 %; NRBC Per 100 WBC 0 X 10*3/uL (0.00-0.01); Neutrophils # (A) 3.19 X 10*3/uL (1.80-7.70); Neutrophils % (A) 56.4 %; Platelet Count 165 X 10*3/uL (140-440); RBC 4.84 X 10*6/uL (4.40-5.60); RDW 12.9 % (11.5-14.5); WBC 5.66 X 10*3/uL (4.50-10.00)
== END | disposition home or self-care (01) ==
LOC: LABWHC1 07:16
PROVIDERS: ATTEND Internal Medicine
CPT/HCPCS: 36415; 80053; 80061; 81003; 82043; 82570; 83036; 84443; 85025

== ENCOUNTER → 2024-05-06 | Outpatient (CLI) | payer MEDICAID | END | disposition home or self-care (01) | LOC: LABWHC1 15:24 | PROVIDERS: ATTEND Internal Medicine Endocrinology, Diabetes & Metabolism | DX: E29.1 Testicular hypofunction (principal) | CPT/HCPCS: 36415; 84403 ==

== ENCOUNTER → 2024-05-25 | Outpatient (CLI) | payer MEDICAID ==
[2024-05-25 15:10] LABS: ALT 62 U/L (10-49); AST 41 U/L (14-35); Albumin 4.6 g/dL (3.8-4.9); Albumin/Globulin Ratio 2.09 Ratio (1.60-3.17); Alkaline Phosphatase 92 U/L (41-126); Blood Urea Nitrogen 25.4 mg/dL (9.0-27.0); Calcium 9.3 mg/dL (8.7-10.3); Carbon Dioxide 25.5 mmol/L (21.6-31.8); Chloride 104 mmol/L (96-109); Chol/HDL Ratio 3.97 Ratio; Globulin 2.2 g/dL (1.6-3.3); Glucose 114 mg/dL (70-110); LDL Cholesterol,Calculated 115.3 mg/dL (0.0-131.0); Potassium 4.7 mmol/L (3.5-5.5); Sodium 139 mmol/L (135-145); Total Protein 6.8 g/dL (6.2-8.2); Uric Acid 4.5 mg/dL (3.7-8.7); VLDL Calculation 18.64 mg/dL (5.00-40.00)
[2024-05-25 15:41] LABS: Appearance,Urine Clear (Clear); Bilirubin,Urine Negative (Negative); Blood,Urine Negative (Negative); Color,Urine Yellow (Yellow); Ketones,Urine Negative (Negative); Nitrite,Urine Negative (Negative); PH, Urine 7.5; Specific Gravity,Urine 1.015 (1.001-1.030)
[2024-05-25 19:14] LABS: Microalbumin Creatinine Ratio <21 mg/g Cr (0-30); Urine Creatinine 57.9 mg/dL (39.0-259.0)
== END | disposition home or self-care (01) ==
LOC: LABWHC1 10:28
PROVIDERS: ATTEND Internal Medicine
DX: I10 Essential (primary) hypertension (principal); E78.2 Mixed hyperlipidemia; E11.9 Type 2 diabetes mellitus without complications
CPT/HCPCS: 36415; 80053; 80061; 81003; 82043; 82570; 83036; 83735; 84443; 84550

== ENCOUNTER → 2024-08-27 | Outpatient (CLI) | payer MEDICAID ==
[2024-08-27 13:12] LABS: HCT 42.9 % (39.6-50.0); HGB 14.5 g/dL (13.0-17.0); MCHC 33.8 g/dL (32.0-37.0); MCV 97.7 FL (80.0-97.0); Mean Platelet Volume 9.8 FL (9.5-12.2); NRBC Per 100 WBC 0 X 10*3/uL (0.00-0.01); Platelet Count 172 X 10*3/uL (140-440); RBC 4.39 X 10*6/uL (4.40-5.60); RDW 12.9 % (11.5-14.5); WBC 5.58 X 10*3/uL (4.50-10.00)
[2024-08-27 13:44] LABS: Prostate Specific Antigen 3.17 ng/mL (0.000-3.500)
== END | disposition home or self-care (01) ==
LOC: LABPRL 06:03
PROVIDERS: ATTEND Internal Medicine Endocrinology, Diabetes & Metabolism
DX: E29.1 Testicular hypofunction (principal)
CPT/HCPCS: 84153; 84403; 85027

== ENCOUNTER → 2024-09-21 | Outpatient (CLI) | payer MEDICAID ==
[2024-09-21 15:31] LABS: Bilirubin,Urine Negative (Negative); Blood,Urine Negative (Negative); Color,Urine Yellow (Yellow); Ketones,Urine Negative (Negative); Nitrite,Urine Negative (Negative); PH, Urine 8.0; Specific Gravity,Urine 1.019 (1.001-1.030); Urobilinogen,Urine 0.2 E.U./DL
[2024-09-21 15:53] LABS: Cholesterol 159.00 mg/dL (0.00-200.00); Creatine Kinase 221 U/L (35-257); HDL Cholesterol 41.20 mg/dL (40.00-60.00); LDL Cholesterol,Calculated 105.5 mg/dL (0.0-131.0); Magnesium 1.9 mg/dL (1.5-2.4); Triglycerides 61.50 mg/dL (0.00-149.00); Uric Acid 4.2 mg/dL (3.7-8.7); VLDL Calculation 12.30 mg/dL (5.00-40.00)
[2024-09-21 15:54] LABS: ALT 51 U/L (10-49); AST 33 U/L (14-35); Albumin 4.8 g/dL (3.8-4.9); Albumin/Globulin Ratio 3.43 Ratio (1.60-3.17); Alkaline Phosphatase 89 U/L (41-126); Anion Gap 10.80 mmol/L (4.00-12.00); BUN/Creat Ratio 22.70 Ratio (12.00-20.00); Blood Urea Nitrogen 22.7 mg/dL (9.0-27.0); Calcium 9.1 mg/dL (8.7-10.3); Carbon Dioxide 25.2 mmol/L (21.6-31.8); Chloride 103 mmol/L (96-109); Globulin 1.4 g/dL (1.6-3.3); Glucose 113 mg/dL (70-110); Potassium 4.4 mmol/L (3.5-5.5); Sodium 139 mmol/L (135-145); Total Protein 6.2 g/dL (6.2-8.2)
== END | disposition home or self-care (01) ==
LOC: LABWHC1 11:02
PROVIDERS: ATTEND Internal Medicine
DX: I10 Essential (primary) hypertension (principal); E11.9 Type 2 diabetes mellitus without complications; E78.2 Mixed hyperlipidemia
CPT/HCPCS: 36415; 80053; 80061; 81003; 82550; 83036; 83735; 84443; 84550

== ENCOUNTER → 2024-09-23 | Outpatient (CLI) | payer MEDICAID ==
--- NOTE | 2024-09-23 10:09 | CT ---
EXAMINATION TYPE: CT chest wo con CT DLP: 727 mGycm, Automated exposure control for dose reduction was used. DATE OF EXAM: 09/23/2024 9:45 AM COMPARISON: CT chest abdomen and pelvis 09/28/2023, CT low-dose lung 09/16/2023, CTA chest 03/13/2022 CLINICAL INDICATION:Male, 54 years old with history of R05.3 CHRONIC COUGH; PHH, chronic cough TECHNIQUE: Multiple axial images were obtained through the chest without IV contrast. Lack of IV or o ral contrast limits evaluation of solid and hollow organ viscera. . Coronal and sagittal reformats re viewed. FINDINGS: LUNGS/ PLEURA: No pleural effusion, pneumothorax, focal consolidation. Similar linear scarring within the medial aspect of the right upper lobe and right middle lobe. Few scattered stable pulmonary micr onodules exam including a left upper lobe tree 0.9 mm nodule (series 4, image 27). Consider stable du e to stability from 2021. No new or enlarging pulmonary nodules. No evidence for interstitial lung di sease. AIRWAY: Patent and unremarkable.. HEART: Size within normal limits. . No pericardial effusion. No significant coronary artery calcifica tions. MEDIASTINUM: No gross evidence of adenopathy. VASCULATURE: No aortic aneurysm. MUSCULOSKELETAL: No acute osseous abnormalities. Multilevel anterior osteophytosis of the lower thora cic spine. SOFT TISSUES/LYMPH NODES: Unremarkable. LOWER NECK: No significant findings. UPPER ABDOMEN: No significant findings. IMPRESSION: 1. No acute thoracic process. No evidence for interstitial lung disease. 2. Stable few scattered pulmonary micronodules dating back to 2021 and considered benign. No new or e nlarging pulmonary nodules. [facility], , 09/23/2024 10:07 AM
== END | disposition home or self-care (01) ==
LOC: RADCTMAIN 09:22
PROVIDERS: ATTEND Internal Medicine
DX: R91.8 Other nonspecific abnormal finding of lung field (principal)
CPT/HCPCS: 71250